=== PATIENT | female | born 1945 | race Caucasian/White ===

== ENCOUNTER 2017-10-31 12:21 | Emergency (ER) | payer OTHER ==
[~2017-10-31] VITALS: Ht 170.2 cm; Wt 82.7 kg
[~2017-10-31 12:21] MED LIST: CLC100 PO; TRAZ50TA35 PO
[2017-10-31 12:29] VITALS: TEMP 36.7; Ht 170.2 cm; Wt 82.7 kg
[2017-10-31] MEDS ORDERED: ACETAMINOPHEN 325 MG TAB PO STA (13:31)
--- NOTE | 2017-10-31 13:38 | EMERGENCY ROOM VISIT NOTE ---
History Report prepared by Benita: Neha Lentz Under the Supervision of: Dr. Sho Alvarado M.D. First contact with patient: 13:02 Chief Complaint: NECK PAIN Stated Complaint: pain face & shoulder History of Present Illness The patient is a 72 year old female who presents to the Emergency Room with complaints of worsening head and facial pain beginning last night. She states that the pain also radiates into her chest and the entire back of her neck. She rates her pain at a 5/10. She reports that she has a hematoma in her eye but is unsure of the cause. The patient denies falling or hitting her head recently. Her family reports that the patient gets pain injections for chronic pain and that she recently had an MRI done but that they don't know the results yet. She reports that she takes Coumadin and has a history of a "heart attack." Source of History: patient Onset: last night Position: head, other (facial) Symptom Intensity: rated at a 5/10 Timing: worsening Associated Symptoms: + neck pain, + chest pain Review of Systems See HPI for pertinent positives & negatives. A total of 10 systems reviewed and were otherwise negative. Past Medical & Surgical Medical Problems: (1) Anxiety State Nos (2) Benign hypertension (3) CAD (coronary artery disease) (4) Diaphragmatic hernia (5) Dyslipidemia (6) Gastroesophageal reflux disease (7) Generalized anxiety disorder (8) History of left hip replacement (9) Hyperlipemia (10) hypertensive urgency (11) Myocardial infarction (12) Paroxysmal atrial fibrillation (13) Pulmonary embolism (14) Rheumatoid arthritis (15) SPINAL STENOSIS NOS (16) Valvular heart disease Surgical Problems: (1) History of adenoidectomy (2) History of appendectomy (3) History of cardiac catheterization (4) History of hysterectomy (5) History of lumpectomy (6) History of tonsillectomy (7) History of tooth extraction Family History FH: cancer FH: gallbladder disease FH: heart disease FH: lung disease Hypertension Kidney disease Kidney stones Social History Smoking Status: Never Smoker Alcohol Use: occasionally Marital Status: Housing Status: lives with family Occupation Status: disabled Current/Historical Medications Scheduled Acetaminophen (Tylenol Arthritis Ext Rel), 650 MG PO HS Aspirin (Aspirin Chewable), 81 MG PO DAILY Atorvastatin (Lipitor), 40 MG PO HS Carvedilol (Coreg), 25 MG PO BID Cyanocobalamin (Vitamin B-12), 1,000 MCG PO BID Duloxetine HCl (Cymbalta), 1 CAP PO DAILY Furosemide (Lasix), 40 MG PO DAILY Losartan Potassium (Cozaar), 25 MG PO BID Pantoprazole (Protonix), 40 MG PO DAILY Potassium Ext Rel (Klor-Con), 20 MEQ PO DAILY Sennosides-Docusate Sodium (Stool Softener Plus Laxat), 1 TAB PO Q2D Trazodone Hcl (Trazodone), 100 MG PO HS Warfarin Sod (Coumadin), 2 MG PO MWF Warfarin Sodium (Coumadin), 4 MG PO [id number] Scheduled PRN Tramadol (Ultram), 50 MG PO TID PRN for Pain Allergies Coded Allergies: Codeine (Unverified Allergy, Severe, SHORTNESS OF BREATH, 08/27/16) Morphine (Verified Adverse Reaction, Intermediate, dizzy/nausea, 08/27/16) Physical Exam Vital Signs Date Time Temp Pulse Resp B/P (MAP) Pulse Ox O2 Delivery O2 Flow Rate FiO2 10/31/17 15:59 62 15 187/84 96 Room Air 10/31/17 15:15 63 23 193/87 95 Room Air 10/31/17 13:28 62 18 184/90 96 Room Air 10/31/17 12:47 63 10/31/17 12:29 36.7 60 12 210/88 97 Room Air Physical Exam Vital signs reviewed. General: Well-appearing female, in no significant distress. HEENT: No scleral icterus, PERRLA, neck supple. Atraumatic. Cardiovascular: Regular rate and rhythm, systolic ejection murmur. Pulmonary: Clear to auscultation bilaterally, normal work of breathing. Abdomen: Soft, nontender, nondistended, positive bowel sounds. Musculoskeletal: Atraumatic, no peripheral edema. Tenderness to palpation over right cervical paraspinous muscles into right upper chest. Nontender along cervical spine. Neurologic: Patient awake alert and oriented x 3, full strength in all 4 extremities. Cranial nerves 2 through 12 grossly intact. Skin: Warm, dry, no rash Medical Decision & Procedures ER Provider Diagnostic Interpretation: Radiology results as stated below per my review and radiologist interpretation: CHEST ONE VIEW PORTABLE HISTORY: headache, upper chest pain COMPARISON: Chest 04/18/2012. FINDINGS: The lungs are clear. Cardiac silhouette is normal in size. No pleural effusions. No pneumothorax. IMPRESSION: No acute process. Electronically signed by: Alonso Randhawa M.D. 10/31/2017 2:09 PM Dictated Date/Time: 10/31/2017 2:07 PM Laboratory Results 10/31/17 12:40 Red Blood Count 4.49, Mean Corpuscular Volume 91.3, Mean Corpuscular Hemoglobin 30.5, Mean Corpuscular Hemoglobin Concent 33.4, Mean Platelet Volume 10.2, Neutrophils (%) (Auto) 55.7, Lymphocytes (%) (Auto) 37.0, Monocytes (%) (Auto) 5.2, Eosinophils (%) (Auto) 1.2, Basophils (%) (Auto) 0.6, Neutrophils # (Auto) 4.99, Lymphocytes # (Auto) 3.32, Monocytes # (Auto) 0.47, Eosinophils # (Auto) 0.11, Basophils # (Auto) 0.05 10/31/17 12:40 Test 10/31/17 12:40 10/31/17 14:10 10/31/17 14:14 White Blood Count 8.97 K/uL (4.8-10.8) Red Blood Count 4.49 M/uL (4.2-5.4) Hemoglobin 13.7 g/dL (12.0-16.0) Hematocrit 41.0 % (37-47) Mean Corpuscular Volume 91.3 fL (80-100) Mean Corpuscular Hemoglobin 30.5 pg (25-34) Mean Corpuscular Hemoglobin Concent 33.4 g/dl (32-36) Platelet Count 312 K/uL (130-400) Mean Platelet Volume 10.2 fL (7.4-10.4) Neutrophils (%) (Auto) 55.7 % Lymphocytes (%) (Auto) 37.0 % Monocytes (%) (Auto) 5.2 % Eosinophils (%) (Auto) 1.2 % Basophils (%) (Auto) 0.6 % Neutrophils # (Auto) 4.99 K/uL (1.4-6.5) Lymphocytes # (Auto) 3.32 K/uL (1.2-3.4) Monocytes # (Auto) 0.47 K/uL (0.11-0.59) Eosinophils # (Auto) 0.11 K/uL (0-0.5) Basophils # (Auto) 0.05 K/uL (0-0.2) RDW Standard Deviation 45.5 fL (36.4-46.3) RDW Coefficient of Variation 13.8 % (11.5-14.5) Immature Granulocyte % (Auto) 0.3 % Immature Granulocyte # (Auto) 0.03 K/uL (0.00-0.02) Prothrombin Time 23.8 SECONDS (9.0-12.0) Prothromb Time International Ratio 2.3 (0.9-1.1) Activated Partial Thromboplast Time 41.5 SECONDS (21.0-31.0) Partial Thromboplastin Ratio 1.6 Anion Gap 6.0 mmol/L (3-11) Est Creatinine Clear Calc Drug Dose 49.9 ml/min Estimated GFR () 57.1 Estimated GFR (Non- 49.2 BUN/Creatinine Ratio 11.7 (10-20) Calcium Level 9.4 mg/dl (8.5-10.1) Magnesium Level 2.2 mg/dl (1.8-2.4) Total Bilirubin 0.6 mg/dl (0.2-1) Direct Bilirubin 0.2 mg/dl (0-0.2) Aspartate Amino Transf (AST/SGOT) 22 U/L (15-37) Alanine Aminotransferase (ALT/SGPT) 20 U/L (12-78) Alkaline Phosphatase 141 U/L (45-117) Total Creatine Kinase 134 U/L (26-192) Creatine Kinase MB 1.2 ng/ml (0.5-3.6) Creatine Kinase MB Ratio 0.9 (0-3.0) Total Protein 8.3 gm/dl (6.4-8.2) Albumin 3.5 gm/dl (3.4-5.0) Bedside Troponin I < 0.030 ng/ml (0-0.045) Influenza Type A Antigen Neg for Influ A (NEG) Influenza Type B Antigen Neg for Influ B (NEG) Laboratory results per my review. Medications Administered Medications (Trade) Dose Ordered Sig/Isaiah Route Start Time Stop Time Status Last Admin Dose Admin Acetaminophen (Tylenol Tab) 650 mg NOW STAT PO 10/31/17 13:31 1/18/18 13:34 DC 10/31/17 14:13 650 MG Hydralazine HCl (Apresoline Tab) 25 mg NOW STAT PO 10/31/17 15:33 10/31/17 15:37 DC 10/31/17 16:00 25 MG ECG Indication: chest pain Rate (beats per minute): 56 Rhythm: sinus bradycardia Findings: no acute ischemic change, no ectopy ED Course 1320: Past medical records reviewed. The patient was evaluated in room B4B. A complete history and physical examination was performed. 1331: Ordered Tylenol Tab 650 mg PO. Medical Decision Differentials include: muscular strain, acute on chronic pain, migraine, headache, intracranial hemorrhage, and neuropathic pain. This patient was evaluated and appeared to be in significant discomfort. Physical examination reveals a tenderness along the right paraspinous muscles of the cervical spine and neck. The patient states she has had some chronic pain there since she fell several years ago. She has been seeing pain management however she does feel this is different. She feels the headache is much more significant. Patient is anticoagulated therefore a CT scan of the head was performed and is negative for acute intracranial abnormality. CT cervical spine CT is significant for degenerative changes however there is no acute fracture or malalignment. The patient was feeling much improved on my reevaluation. Tylenol by mouth seemed to alleviate the pain. She was informed of the findings and will be discharged to the care of her daughter. Patient's blood pressure is noted to be elevated. She did receive hydralazine 25 mg by mouth. She did take her blood pressure medicines this morning. She has a blood pressure cuff and will monitor this week. She will follow-up with her physician next week for reevaluation and further blood pressure management. She will return to the ER for worsening of symptoms or any medical concerns. Medication Reconcilliation Current Medication List: was personally reviewed by me Blood Pressure Screening Patient's blood pressure: Elevated blood pressure Blood pressure disposition: Elevated BP felt to be situational Impression Primary Impression: Spasm of cervical paraspinous muscle Additional Impression: Benign hypertension Scribe Attestation The scribe's documentation has been prepared under my direction and personally reviewed by me in its entirety. I confirm that the note above accurately reflects all work, treatment, procedures, and medical decision making performed by me. Departure Information Referrals Odalys Caceres M.D. (PCP) Patient Instructions My [facility] Problem Qualifiers
[2017-10-31] MEDS ORDERED: CMD4 PO (13:49)
[2017-10-31] MEDS ORDERED: CYAN10005 PO (13:49)
[2017-10-31] MEDS ORDERED: SENNTAB13 PO (13:49)
[2017-10-31] MEDS ORDERED: ATOR-24 PO (13:49)
[2017-10-31] MEDS ORDERED: LOSA1TAB PO (13:49)
[2017-10-31] MEDS ORDERED: CARV25TA2 PO (13:49)
[2017-10-31] MEDS ORDERED: POTA20TA16 PO (13:49)
[2017-10-31] MEDS ORDERED: TRAM-10 PO (13:49)
--- NOTE | 2017-10-31 14:10 | DIAGNOSTIC IMAGING REPORT ---
CHEST ONE VIEW PORTABLE HISTORY: headache, upper chest pain COMPARISON: Chest 04/18/2012. FINDINGS: The lungs are clear. Cardiac silhouette is normal in size. No pleural effusions. No pneumothorax. IMPRESSION: No acute process. Electronically signed by: Alonso Randhawa M.D. 10/31/2017 2:09 PM Dictated Date/Time: 10/31/2017 2:07 PM
[2017-10-31 14:26] LABS: BASO % 0.6 %; BASO ABS # 0.05 K/uL (0-0.2); EOS % 1.2 %; EOS ABS # 0.11 K/uL (0-0.5); HEMOGLOBIN 13.7 g/dL (12.0-16.0); IG# 0.03 K/uL (0.00-0.02); LYMPH ABS # 3.32 K/uL (1.2-3.4); MEAN CELL VOLUME 91.3 fL (80-100); MEAN CORPUSCULAR HEMOGLOBIN 30.5 pg (25-34); MEAN CORPUSCULAR HGB CONC 33.4 g/dl (32-36); MEAN PLATELET VOLUME 10.2 fL (7.4-10.4); MONO % 5.2 %; MONO ABS # 0.47 K/uL (0.11-0.59); NEUT % 55.7 %; NEUT ABS # 4.99 K/uL (1.4-6.5); PLATELET COUNT 312 K/uL (130-400); RED CELL DISTRIBUTION WIDTH CV 13.8 % (11.5-14.5); RED CELL DISTRIBUTION WIDTH SD 45.5 fL (36.4-46.3); WHITE BLOOD COUNT 8.97 K/uL (4.8-10.8)
[2017-10-31 14:35] LABS: INR 2.3 (0.9-1.1); PTT PATIENT 41.5 SECONDS (21.0-31.0)
[2017-10-31 14:45] LABS: ALBUMIN 3.5 gm/dl (3.4-5.0); CALCIUM 9.4 mg/dl (8.5-10.1); CREATININE 1.11 mg/dl (0.60-1.20); POTASSIUM 3.3 mmol/L (3.5-5.1)
[2017-10-31 14:51] LABS: INFLUENZA B ANTIGEN Neg for Influ B (NEG)
[2017-10-31 14:51] LABS: CKMB 1.2 ng/ml (0.5-3.6); TOTAL PROTEIN 8.3 gm/dl (6.4-8.2)
--- NOTE | 2017-10-31 15:10 | DIAGNOSTIC IMAGING REPORT ---
HEAD WITHOUT CONTRAST (CT) CLINICAL HISTORY: 72 years-old Female with headache, right side, coumadin. Acute right-sided headache TECHNIQUE: Multiple axial CT images of the head were obtained without contrast. A dose lowering technique was utilized adhering to the principles of ALARA. CT DOSE: 951.87 mGy.cm COMPARISON: CT head 08/27/2016. FINDINGS: No acute intracranial hemorrhage, midline shift, intracranial mass, hydrocephalus, territorial ischemia or abnormal extra-axial collection. Mild atrophy. Vascular calcifications are seen at the level of the skull base. Ill-defined areas of low attenuation are seen within the subcortical and periventricular white matter suggesting chronic microvascular ischemic changes. The calvarium is intact. The mastoid air cells, and middle ear cavities are clear. Moderate mucosal thickening of the left maxillary sinus. Soft tissues are unremarkable. IMPRESSION: No acute intracranial abnormality. The above report was generated using voice recognition software. It may contain grammatical, syntax or spelling errors. Electronically signed by: Ruben Gilbert M.D. 10/31/2017 3:09 PM Dictated Date/Time: 10/31/2017 3:06 PM
--- NOTE | 2017-10-31 15:43 | DIAGNOSTIC IMAGING REPORT ---
CERVICAL SPINE W/O CT DOSE: HISTORY: Pain. Neuropathy. neck pain, right side TECHNIQUE: Multiaxial CT images of the cervical spine were performed and reformatted in the sagittal and coronal plane without the use of contrast. A dose lowering technique was utilized adhering to the principles of ALARA. COMPARISON: None. FINDINGS: Vertebral body stature is normal. Mild cervical scoliosis. The C1-C2 complex is intact. Degenerative change of the lateral facets primarily at C3-C4. Degenerative disc change most prominent from C3 through C6. Mild osteophytic narrowing of the neuroforamina bilaterally from C3 through C6. Prevertebral soft tissues are unremarkable. IMPRESSION: 1. Degenerative disc change as well as degenerative changes of the posterior/lateral facets from C3 through C6. 2. Osteophytic narrowing of the neuroforamina bilaterally from C3 through C6. 3. No acute bony abnormality. The above report was generated using voice recognition software. It may contain grammatical, syntax or spelling errors. Electronically signed by: Venkatesh Laguerre M.D. 10/31/2017 3:42 PM Dictated Date/Time: 10/31/2017 3:39 PM
[2017-10-31] MEDS ORDERED: WARF4TAB PO (15:44)
[2017-10-31] MEDS ORDERED: TRAZ100T29 PO (15:44)
[2017-10-31] MEDS ORDERED: ACET1TAB84 PO (15:44)
[2017-10-31] MEDS ORDERED: CYM/30 PO (15:44)
[2017-10-31] MEDS ORDERED: PANT40TA PO (15:47)
[2017-10-31 15:59] VITALS: BP 187/84; PULSE 62; O2SAT 96
[2017-10-31] MEDS ORDERED: FRS/40 PO (16:40)
[2017-10-31] MEDS ORDERED: ASPCH81X PO (16:46)
== END 2017-10-31 16:10 | disposition home or self-care (01) ==
LOC: EDBD 12:21 → C.EDB 12:22
DX: M62.838 Other muscle spasm (principal); I10 Essential (primary) hypertension; G89.29 Other chronic pain; Z79.01 Long term (current) use of anticoagulants; I25.2 Old myocardial infarction; I25.10 Atherosclerotic heart disease of native coronary artery without angina pectoris; E78.5 Hyperlipidemia, unspecified; K21.9 Gastro-esophageal reflux disease without esophagitis; F41.1 Generalized anxiety disorder; Z96.642 Presence of left artificial hip joint; I48.0 Paroxysmal atrial fibrillation; Z86.711 Personal history of pulmonary embolism; M06.9 Rheumatoid arthritis, unspecified; M48.00 Spinal stenosis, site unspecified; Z90.710 Acquired absence of both cervix and uterus; Z80.9 Family history of malignant neoplasm, unspecified; Z82.49 Family history of ischemic heart disease and other diseases of the circulatory system; Z84.1 Family history of disorders of kidney and ureter; Z79.82 Long term (current) use of aspirin; Z79.899 Other long term (current) drug therapy

== ENCOUNTER 2020-03-08 12:00 | Inpatient (IN) ==
[2020-03-08] MEDS ORDERED: ASPIRIN CHEW 324 MG PO STA (13:06)
--- NOTE | 2020-03-08 13:06 | Emergency Department Note ---
Impression & Plan Chest pain, HTN (hypertension) ED Provider Note NAME: ISAIAH PRESTON AGE: 75 SEX: F : 1945 ARRIVES VIA: Ambulance INFORMANT: Patient ED PROVIDER(S): Austin Cintron DO CHIEF COMPLAINT: Chest pain HPI: Patient is a 75-year-old female with a past medical history of pericardial effusion, A. fib, CKD and CAD the presents the ER for chest pain. She notes the chest pain lasted for about an hour and started about an hour ago. She describes as a tightness/heaviness and was associated with shortness of breath. No radiation. Stated middle of her chest. Currently pain is a 0 out of 10. Denies any nausea vomiting or diarrhea. Admits to some blurry vision associated with the chest pain but notes that she gets this fairly regularly social with watching TV. Has been present for the past 2 years. ROS: See above HPI for pertinent positives & negatives. A total of 10 systems reviewed and were otherwise negative. PAST MEDICAL HISTORY:See Below PAST SURGICAL HISTORY:See Below FAMILY HISTORY:See Below SOCIAL HISTORY:See Below HOME MEDICATIONS:See Below ALLERGIES:See Below VITALS:See Below PHYSICAL EXAMINATION: GENERAL: Sitting up in bed, alert, well appearing, well nourished, no distress, non-toxic EYE EXAM: normal conjunctiva. OROPHARYNX: no exudate, no erythema, lips, buccal mucosa, and tongue normal and mucous membranes are moist NECK: supple, no nuchal rigidity, no adenopathy, non-tender LUNGS: Clear to auscultation. Normal chest wall mechanics HEART: no murmurs, S1 normal and S2 normal ABDOMEN: abdomen soft, non-tender, normo-active bowel sounds, no masses, no rebound or guarding. BACK: Back is symmetrical on inspection and there is no deformity, no midline tenderness, no CVA tenderness. SKIN: no rashes and no bruising UPPER EXTREMITIES: upper extremities are grossly normal. LOWER EXTREMITIES: No pitting edema. Calves are equal bilateral NEURO EXAM: Normal sensorium, cranial nerves II-XII grossly intact, normal speech, no gross weakness of arms, no gross weakness of legs. MEDICAL DECISION MAKING: Patient is a 35-year-old female who presents the ER for midsternal chest heaviness associated with some shortness of breath. She has no other exacerbating or remitting factors. She does have a history of presents of heart disease/Takotsubos. She was given aspirin upon arrival to the ER. She complete resolution of her symptoms. EKG was unchanged from previous. IV was established blood work was obtained. Labs show no significant leukocytosis or anemia. BMP along with LFTs bilirubin and troponin was negative. Chest x-ray was unremarkable. Patient was updated bedside. Discussed with the hospitalist for observation secondary to chest pain. Triage Nursing notes reviewed. Prior medical records reviewed Vital Signs: reviewed and remarkable for hypertension Differential diagnosis: Differential diagnoses includes but is not limited to acute coronary syndrome, myocardial infarction, pericarditis, pulmonary embolus, aortic dissection, pneumonia, pneumothorax, musculoskeletal, shingles, esophageal. ER treatment provided: See below Diagnostics interpreted by me: ECG: Sinus bradycardia rate of 50 Left axis No PVCs Normal QTC Biphasic T wave in V5 Cardiac Monitoring: An order was placed for continuous cardiac monitoring. The monitor shows a rate of 59 with sinus rhythm. Laboratory studies: As stated above and show below. Imaging studies: Portable AP upright 1 view of the chest shows no focal infiltrate Consultation(s): Discussed with [facility] service patient was admitted under Dr. Daniel's service. ED COURSE: Procedures: none Critical Care: None Past Med/Surg History Social History Preferred Language: Icelandic Communication Ability: Effective Motor Vehicle Field Representative Required: No Beliefs That Will Affect Care: None Current Living Situation: Alone Feels Safe at Home: Yes Smoking Status: Unknown if ever smoked Hx Alcohol Use: No Hx Substance Use: No Allergies Allergies Allergy/AdvReac Type Severity Reaction Status Date / Time codeine Allergy Severe SHORTNESS Verified 03/08/20 13:24 OF BREATH morphine AdvReac Intermediate dizzy/nause Verified 03/08/20 13:24 a caffeine AdvReac Anxiety Verified 03/08/20 13:24 Home Meds Home Medications Medication Instructions Recorded Confirmed aspirin 81 mg PO DAILY 06/17/18 03/08/20 atorvastatin 40 mg PO HS 06/17/18 03/08/20 carvedilol 25 mg PO BID 06/17/18 03/08/20 cyanocobalamin (vitamin B-12) 1,000 mcg PO DAILY 06/17/18 03/08/20 duloxetine 30 mg PO DAILY 06/17/18 03/08/20 furosemide 40 mg PO QAM 06/17/18 03/08/20 losartan 25 mg PO DAILY 06/17/18 03/08/20 pantoprazole 40 mg PO DAILYBB 06/17/18 03/08/20 potassium chloride 20 meq PO DAILY 06/17/18 03/08/20 sennosides-docusate sodium [Senna 1 tab PO HS 06/17/18 03/08/20 Plus] trazodone 100 mg PO HS 06/17/18 03/08/20 warfarin 4 mg PO SUTUWETHSA@1600 06/17/18 03/08/20 cholecalciferol (vitamin D3) 50 mcg PO DAILY 02/28/20 03/08/20 [Vitamin D3] iron,carbonyl-vitamin C [Vitron-C] 1 tab PO DAILY 02/28/20 03/08/20 nystatin 1 applic TOPICAL BID 03/08/20 03/08/20 tramadol 50 mg PO Q8H PRN 03/08/20 03/08/20 warfarin 2 mg PO MOFR@1600 03/08/20 03/08/20 Results & Data (ED) Vital Signs Vital Signs - 24 hr 03/08/20 12:01 03/08/20 12:06 03/08/20 12:10 Temperature 36.5 C Temperature Source Oral Pulse Rate 45 L 49 L Pulse Rate [Right Finger] Pulse Rate from SpO2 Sensor 46 L Respiratory Rate 13 18 Respiratory Effort / Characteristics Non-Labored Spontaneous Non-Labored Spontaneous Respiratory Depth Normal Normal Respiratory Pattern Blood Pressure 157/60 H 157/60 H Blood Pressure [Right Arm] Blood Pressure Mean 90 92 Blood Pressure Mean [Right Arm] Pulse Oximetry 96 97 Oxygen Delivery Method Room Air Sepsis Recent Fever Within 48 Hours No Sepsis New/Unexplained Change in Mental Status No Sepsis Action Taken by Nursing No Action Required 03/08/20 12:13 03/08/20 12:15 03/08/20 12:30 Temperature Temperature Source Pulse Rate 48 L 51 L Pulse Rate [Right Finger] Pulse Rate from SpO2 Sensor 48 L 51 L Respiratory Rate 13 11 L Respiratory Effort / Characteristics Respiratory Depth Respiratory Pattern Blood Pressure Blood Pressure [Right Arm] Blood Pressure Mean Blood Pressure Mean [Right Arm] Pulse Oximetry 97 96 96 Oxygen Delivery Method Room Air Sepsis Recent Fever Within 48 Hours Sepsis New/Unexplained Change in Mental Status Sepsis Action Taken by Nursing 03/08/20 13:00 03/08/20 13:14 03/08/20 13:30 Temperature Temperature Source Pulse Rate 48 L 52 L Pulse Rate [Right Finger] Pulse Rate from SpO2 Sensor 48 L 51 L Respiratory Rate 14 11 L Respiratory Effort / Characteristics Respiratory Depth Respiratory Pattern Blood Pressure Blood Pressure [Right Arm] Blood Pressure Mean Blood Pressure Mean [Right Arm] Pulse Oximetry 97 96 97 Oxygen Delivery Method Room Air Sepsis Recent Fever Within 48 Hours Sepsis New/Unexplained Change in Mental Status Sepsis Action Taken by Nursing 03/08/20 14:00 03/08/20 14:30 03/08/20 14:31 Temperature Temperature Source Pulse Rate 63 54 L Pulse Rate [Right Finger] 64 Pulse Rate from SpO2 Sensor 52 L 53 L Respiratory Rate 26 H 17 20 Respiratory Effort / Characteristics Non-Labored Spontaneous Respiratory Depth Normal Respiratory Pattern Regular Blood Pressure Blood Pressure [Right Arm] 137/68 Blood Pressure Mean Blood Pressure Mean [Right Arm] 91 Pulse Oximetry 97 97 97 Oxygen Delivery Method Room Air Sepsis Recent Fever Within 48 Hours Sepsis New/Unexplained Change in Mental Status Sepsis Action Taken by Nursing 03/08/20 14:32 03/08/20 15:00 03/08/20 15:18 Temperature Temperature Source Pulse Rate 64 53 L 57 L Pulse Rate [Right Finger] Pulse Rate from SpO2 Sensor 54 L Respiratory Rate 18 13 27 H Respiratory Effort / Characteristics Respiratory Depth Respiratory Pattern Blood Pressure 137/68 157/84 H Blood Pressure [Right Arm] Blood Pressure Mean 101 97 Blood Pressure Mean [Right Arm] Pulse Oximetry 97 Oxygen Delivery Method Sepsis Recent Fever Within 48 Hours Sepsis New/Unexplained Change in Mental Status Sepsis Action Taken by Nursing 03/08/20 15:30 Temperature Temperature Source Pulse Rate 56 L Pulse Rate [Right Finger] Pulse Rate from SpO2 Sensor Respiratory Rate 25 H Respiratory Effort / Characteristics Respiratory Depth Respiratory Pattern Blood Pressure Blood Pressure [Right Arm] Blood Pressure Mean Blood Pressure Mean [Right Arm] Pulse Oximetry Oxygen Delivery Method Sepsis Recent Fever Within 48 Hours Sepsis New/Unexplained Change in Mental Status Sepsis Action Taken by Nursing Laboratory Data Result diagrams: 03/08/20 13:20 03/08/20 13:20 Lab Results 03/08/20 03/08/20 03/08/20 Range/Units 13:20 13:20 13:20 WBC 5.92 (4.8-10.8) K/uL RBC 3.58 L (4.2-5.4) M/uL Hgb 10.6 L (12.0-16.0) g/dL Hct 32.6 L (37-47) % MCV 91.1 (80-100) fL MCH 29.6 (25-34) pg MCHC 32.5 (32-36) g/dL RDW Std Deviation 48.7 H (36.4-46.3) fL RDW Coeff of Jame 14.6 H (11.5-14.5) % Plt Count 277 (130-400) K/uL MPV 9.7 (7.4-10.4) fL Immature Gran % (Auto) 0.3 % Neut % (Auto) 61.2 % Lymph % (Auto) 28.4 % [place] % (Auto) 8.4 % Eos % (Auto) 1.2 % Baso % (Auto) 0.5 % Immature Gran # (Auto) 0.02 (0.00-0.02) K/uL Neut # (Auto) 3.62 (1.4-6.5) K/uL Lymph # (Auto) 1.68 (1.2-3.4) K/uL [place] # (Auto) 0.50 (0.11-0.59) K/uL Eos # (Auto) 0.07 (0-0.5) K/uL Baso # (Auto) 0.03 (0-0.2) K/uL PT 44.1 H (9.0-12.0) Seconds INR 4.5 H (0.9-1.1) APTT 54.0 H* (21.0-31.0) Seconds PTT Ratio 1.9 Sodium 140 (136-145) mmol/L Potassium 4.4 (3.5-5.1) mmol/L Chloride 105 (98-107) mmol/L Carbon Dioxide 31 (21-32) mmol/L Anion Gap 4.0 (3-11) BUN 18 (7-18) mg/dl Creatinine 1.05 (0.6-1.2) mg/dl Est Cr Clr Drug Dosing 43.6 ml/min Est GFR ( Amer) 59.7 Est GFR (Non-Af Amer) 51.5 BUN/Creatinine Ratio 16.8 (10-20) Glucose 104 H (70-99) mg/dl Calcium 8.8 (8.5-10.1) mg/dl Total Bilirubin 0.5 (0.2-1) mg/dl AST 13 L (15-37) U/L ALT 11 L (12-78) U/L Alkaline Phosphatase 80 (45-117) U/L Troponin I < 0.015 (0-0.045) ng/ml Total Protein 7.0 (6.4-8.2) gm/dl Albumin 2.7 L (3.4-5.0) gm/dl Globulin 4.3 H (2.5-4.0) gm/dl Albumin/Globulin Ratio 0.6 L (0.9-2) 05/26/20 Range/Units 13:20 WBC (4.8-10.8) K/uL RBC (4.2-5.4) M/uL Hgb (12.0-16.0) g/dL Hct (37-47) % MCV (80-100) fL MCH (25-34) pg MCHC (32-36) g/dL RDW Std Deviation (36.4-46.3) fL RDW Coeff of Jame (11.5-14.5) % Plt Count (130-400) K/uL MPV (7.4-10.4) fL Immature Gran % (Auto) % Neut % (Auto) % Lymph % (Auto) % [place] % (Auto) % Eos % (Auto) % Baso % (Auto) % Immature Gran # (Auto) (0.00-0.02) K/uL Neut # (Auto) (1.4-6.5) K/uL Lymph # (Auto) (1.2-3.4) K/uL [place] # (Auto) (0.11-0.59) K/uL Eos # (Auto) (0-0.5) K/uL Baso # (Auto) (0-0.2) K/uL PT Cancelled (9.0-12.0) Seconds INR Cancelled (0.9-1.1) APTT (21.0-31.0) Seconds PTT Ratio Sodium (136-145) mmol/L Potassium (3.5-5.1) mmol/L Chloride (98-107) mmol/L Carbon Dioxide (21-32) mmol/L Anion Gap (3-11) BUN (7-18) mg/dl Creatinine (0.6-1.2) mg/dl Est Cr Clr Drug Dosing ml/min Est GFR ( Amer) Est GFR (Non-Af Amer) BUN/Creatinine Ratio (10-20) Glucose (70-99) mg/dl Calcium (8.5-10.1) mg/dl Total Bilirubin (0.2-1) mg/dl AST (15-37) U/L ALT (12-78) U/L Alkaline Phosphatase (45-117) U/L Troponin I (0-0.045) ng/ml Total Protein (6.4-8.2) gm/dl Albumin (3.4-5.0) gm/dl Globulin (2.5-4.0) gm/dl Albumin/Globulin Ratio (0.9-2) Administered Medications Discontinued Medications Aspirin (Aspirin) 324 mg PO NOW STA Stop: 03/08/20 13:07 Last Admin: 03/08/20 13:20 Dose: 324 mg Documented by: [id number] Discharge Plan Visit Data Chief Complaint: Cardiac Assessment Stated Complaint: CHEST PAIN ED Provider: Austin Cintron Discharge Problem: Chest pain, HTN (hypertension) Forms Stand Alone Forms: My [facility] Prescriptions Prescriptions: No Action furosemide 40 mg Tablet 40 mg PO QAM RF: 0 atorvastatin 40 mg Tablet 40 mg PO HS RF: 0 carvedilol 25 mg Tablet 25 mg PO BID RF: 0 sennosides-docusate sodium [Senna Plus] 8.6-50 mg Tablet 1 tab PO HS RF: 0 cyanocobalamin (vitamin B-12) 1,000 mcg Tablet 1,000 mcg PO DAILY RF: 0 aspirin 81 mg Tablet,Delayed Release (Dr/Ec) 81 mg PO DAILY RF: 0 warfarin 4 mg Tablet 4 mg PO SUTUWETHSA@1600 RF: 0 trazodone 100 mg Tablet 100 mg PO HS RF: 0 pantoprazole 40 mg Tablet,Delayed Release (Dr/Ec) 40 mg PO DAILYBB RF: 0 losartan 25 mg Tablet 25 mg PO DAILY RF: 0 duloxetine 30 mg Capsule,Delayed Release(Dr/Ec) 30 mg PO DAILY RF: 0 potassium chloride 20 mEq Tablet Extended Release 20 meq PO DAILY RF: 0 tramadol 50 mg tablet 50 mg PO Q8H PRN (Reason: Pain) RF: 0 warfarin 4 mg tablet 2 mg PO MOFR@1600 RF: 0 nystatin 100,000 unit/gram Cream 1 applic TOPICAL BID RF: 0 cholecalciferol (vitamin D3) [Vitamin D3] 50 mcg (2,000 unit) Tablet 50 mcg PO DAILY RF: 0 Vitron-C 65 mg iron- 125 mg tablet,delayed release (DR/EC) 1 tab PO DAILY RF: 0 Discharge Problem: Chest pain Qualifiers: Chest pain type: unspecified Qualified Code(s): R07.9 - Chest pain, unspecified HTN (hypertension) Qualifiers: Hypertension type: unspecified Qualified Code(s): I10 - Essential (primary) hypertension
--- NOTE | 2020-03-08 13:15 | XRay Report ---
XR chest 1V portable HISTORY: 75 years-old Female Chest Pain acute atypical chest pain COMPARISON: Chest radiograph 02/28/2020 TECHNIQUE: Portable AP view of the chest FINDINGS: Cardiomediastinal and hilar silhouettes are within normal limits. Calcified plaque of the thoracic ao rtic arch. No pneumothorax, pleural effusion or overt pulmonary edema. Minimal linear scarring/atelec tasis of the lateral left lung base. Calcified plaque of the carotid bulbs. Degenerative changes of t he shoulders and spine. Mild convex right curvature of the lower thoracic spine. IMPRESSION: No acute process. ACT 112: Negative or not required by law. The above report was generated using voice recognition software. It may contain grammatical, syntax o r spelling errors. Electronically signed by: Ruben Gilbert M.D. 03/08/2020 1:14 PM
[2020-03-08 13:35] LABS: Basophils # (auto) 0.03 K/uL (0-0.2); Basophils % (auto) 0.5 %; Eosinophils # (auto) 0.07 K/uL (0-0.5); Eosinophils % (auto) 1.2 %; Hematocrit (blood only) 32.6 % (37-47); Hemoglobin 10.6 g/dL (12.0-16.0); Immature Granulocytes # (auto) 0.02 K/uL (0.00-0.02); Immature Granulocytes % (auto) 0.3 %; Lymphocytes # (auto) 1.68 K/uL (1.2-3.4); Lymphocytes % (auto) 28.4 %; Mean Corpuscular Hemoglobin 29.6 pg (25-34); Mean Corpuscular Hgb Conc 32.5 g/dL (32-36); Mean Corpuscular Volume 91.1 fL (80-100); Mean Platelet Volume 9.7 fL (7.4-10.4); Monocytes % (auto) 8.4 %; Neutrophils # (auto) 3.62 K/uL (1.4-6.5); Neutrophils % (auto) 61.2 %; Platelet Count 277 K/uL (130-400); RDW Coefficient of Variation 14.6 % (11.5-14.5); RDW Standard Deviation 48.7 fL (36.4-46.3); Red Blood Count 3.58 M/uL (4.2-5.4); White Blood Count 5.92 K/uL (4.8-10.8)
[2020-03-08 13:55] LABS: INR 4.5 (0.9-1.1); Partial Thromboplastin Ratio 1.9; Prothrombin Time 44.1 Seconds (9.0-12.0)
[2020-03-08 13:57] LABS: Alanine Aminotransferase 11 U/L (12-78); Albumin Level 2.7 gm/dl (3.4-5.0); Aspartate Aminotransferase 13 U/L (15-37); BUN Creatinine Ratio 16.8 (10-20); Blood Urea Nitrogen 18 mg/dl (7-18); Calcium 8.8 mg/dl (8.5-10.1); Carbon Dioxide 31 mmol/L (21-32); Chloride 105 mmol/L (98-107); Creatinine Clr Calc Pharmacy 43.6 ml/min; Est GFR (African American) 59.7; Est GFR (Non-African American) 51.5; Glucose 104 mg/dl (70-99); Potassium 4.4 mmol/L (3.5-5.1); Sodium 140 mmol/L (136-145)
[2020-03-08 14:01] LABS: Albumin Globulin Ratio 0.6 (0.9-2); Alkaline Phosphatase 80 U/L (45-117); Bilirubin,Total 0.5 mg/dl (0.2-1); Globulin 4.3 gm/dl (2.5-4.0); Troponin I < 0.015 ng/ml (0-0.045)
--- NOTE | 2020-03-08 15:44 | History & Physical Report ---
Date of Service March 08, 2020 Assessment & Plan (1) Chest tightness: This is a 75yo F with a PMH of paroxysmal atrial fibrillation, history of PE on Coumadin, HTN, CKD 3, history of Takotsubo cardiomyopathy, anxiety, dementia who presents with chest pain. -Longstanding chest pain, thought to be atypical per 2018 cardiology note -Does have history of Takotsubo cardiomyopathy as well as trace pericardial effusion in 2018. Most recent 2D echo from Jun 2018 with LV ejection fraction of 55% with mild aortic valve sclerosis -Chest pain free at time of admission. No acute EKG changes. Initial troponin negative -Observe overnight on telemetry, trend troponin, routine 2D echo (2) HTN (hypertension): Mildly elevated at 153/74 -Continue losartan, lasix (3) Supratherapeutic INR: Initial INR supratherapeutic at 4.5. Hold coumadin. Check daily INRs (4) PAF (paroxysmal atrial fibrillation): Sinus bradycardia on EKG -Holding anticoagulation while INR is supratherapeutic (5) CKD (chronic kidney disease), stage III: Kidney function at baseline. Continue monitoring with daily BMP (6) Anxiety: Continue SNRI (7) Mild dementia: Noted on previous documentation. Difficult to determine cognitive impairment vs extreme hard of hearing DVT Ppx: Holding while supratherapeutic INR on Coumadin Code status: FULL per discussion with patient PCP: [facility] Dispo: Observation med tele. Discharge planning ordered. Patient seen in collaboration with Dr. Daniel. Please see addendum. History of Present Illness Chief Complaint: chest pain Primary Care Provider: Odalys Caceres MD This is a 75yo F with a PMH of paroxysmal atrial fibrillation, history of PE on Coumadin, HTN, CKD 3, history of Takotsubo cardiomyopathy, anxiety, dementia who presents with chest pain. Endorses some chest tightness off and on for the past year but noted that it was worse earlier today. Endorses midsternal chest pain that feels like heaviness and is associated with shortness of breath. Occurs at rest and is not worsened with exertion. Denies any jaw pain, radiation to arms, nausea or vomiting. Pain has resolved since arrival. Does have remote history of Takotsubo cardiomyopathy as well as trace pericardial effusion in 2018. Most recent 2D echo from Jun 2018 with LV ejection fraction of 55% with mild aortic valve sclerosis. Follows with PA-C Louise in cardiology clinic and was last seen in June. During last in-patient cardiology consult, was evaluated for similar chest pain that was felt to be atypical of cardiac etiology. Conservative medical management was recommended. Patient is currently chest pain-free. No acute EKG changes. Initial troponin negative. Denies any fever, chills, lightheadedness, headache, cough, shortness of breath, nausea, vomiting, abdominal pain, dysuria, diarrhea or constipation. Allergies Allergy/AdvReac Type Severity Reaction Status Date / Time codeine Allergy Severe SHORTNESS Verified 03/08/20 13:24 OF BREATH morphine AdvReac Intermediate dizzy/nause Verified 03/08/20 13:24 a caffeine AdvReac Anxiety Verified 03/08/20 13:24 Home Medications Home Medications Medication Instructions Recorded Confirmed Type aspirin 81 mg PO DAILY 06/17/18 03/08/20 History atorvastatin 40 mg PO HS 06/17/18 03/08/20 History carvedilol 25 mg PO BID 06/17/18 03/08/20 History cyanocobalamin (vitamin B-12) 1,000 mcg PO DAILY 06/17/18 03/08/20 History duloxetine 30 mg PO DAILY 06/17/18 03/08/20 History furosemide 40 mg PO QAM 06/17/18 03/08/20 History losartan 25 mg PO DAILY 06/17/18 03/08/20 History pantoprazole 40 mg PO DAILYBB 06/17/18 03/08/20 History potassium chloride 20 meq PO DAILY 06/17/18 03/08/20 History sennosides-docusate sodium [Senna 1 tab PO HS 06/17/18 03/08/20 History Plus] trazodone 100 mg PO HS 06/17/18 03/08/20 History warfarin 4 mg PO SUTUWETHSA@1600 06/17/18 03/08/20 History cholecalciferol (vitamin D3) 50 mcg PO DAILY 02/28/20 03/08/20 History [Vitamin D3] iron,carbonyl-vitamin C [Vitron-C] 1 tab PO DAILY 02/28/20 03/08/20 History nystatin 1 applic TOPICAL BID 03/08/20 03/08/20 History tramadol 50 mg PO Q8H PRN 03/08/20 03/08/20 History warfarin 2 mg PO MOFR@1600 03/08/20 03/08/20 History Past Med/Surg History Surgical History History of adenoidectomy History of appendectomy History of cardiac catheterization History of hysterectomy History of lumpectomy History of tonsillectomy History of tooth extraction Family History Brother Myocardial infarction Mother Uterine cancer Social History Preferred Language: Nepali Communication Ability: Effective 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 Physical Exam Physical Exam: General Appearance: WD/WN, vitals as above, NAD, standing in room, pleasant, conversing easily Head: normocephalic, atraumatic Eyes: normal inspection, PERRL, conjunctivae normal, anicteric sclerae ENT: extremely hard of hearing, external ear and nose normal, oropharynx normal Neck: trachea midline, no thyromegaly, normal visual inspection Respiratory: normal respiratory effort, lungs clear to auscultation, no wheeze, rales, rhonchi. Normal insp/exp effort, no accessory muscle use Cardiovascular: regular rate, rhythm, no murmur, normal peripheral pulses. Vessels: no JVD or carotid bruit Chest: normal inspection of chest Abdomen/GI: normal bowel sounds, soft, nontender, no hepatosplenomegaly Extremities/Musculoskeletal: no cyanosis or clubbing, extremities motor strength 5/5 Neurologic: PERRL, EOMI, accommodation nl, no face palsy, CN's II-XI intact bilaterally and moves all extremities Psychiatric: A+Ox3, euthymic affect Skin: no rashes, normal color, warm/dry Results & Data Results & Data ([facility]) Vital Signs (Past 12 Hours) Vital Signs Temp Pulse Pulse Resp BP BP Pulse Ox 03/08/20 14:31 64 20 137/68 97 03/08/20 13:14 96 03/08/20 12:13 97 03/08/20 12:10 36.5 C 49 L 18 157/60 H 97 Laboratory Results Short CBC 03/08/20 Range/Units 13:20 WBC 5.92 (4.8-10.8) K/uL Hgb 10.6 L (12.0-16.0) g/dL Hct 32.6 L (37-47) % Plt Count 277 (130-400) K/uL BMP 03/08/20 13:20 Sodium 140 Potassium 4.4 Chloride 105 Carbon Dioxide 31 BUN 18 Creatinine 1.05 Glucose 104 H Calcium 8.8 Cardiac Enzymes 03/08/20 Range/Units 13:20 Troponin I < 0.015 (0-0.045) ng/ml Liver Function 03/08/20 Range/Units 13:20 Total Bilirubin 0.5 (0.2-1) mg/dl AST 13 L (15-37) U/L ALT 11 L (12-78) U/L Alkaline Phosphatase 80 (45-117) U/L Albumin 2.7 L (3.4-5.0) gm/dl Diagnostic Findings CXR: IMPRESSION: No acute process. ECG Indication: bradycardia Change: no significant change Code Status & VTE Plan VTE Prophylaxis Plan VTE Prophylaxis will be ordered: Yes Supervising Physician Co-Signing Physician Notes Pt was seen and examined. Agreed with Kalie UGARTE exam, assessment and plan. 75yo F with a PMH of paroxysmal atrial fibrillation, history of PE on Coumadin, HTN, CKD 3, history of Takotsubo cardiomyopathy, anxiety, dementia who presents to the ER with chest pain. Pt said that she developed chest pain with heavy like associated with SOB. he said that chest pain worsening with exertion. He said that chest pain resolved since arrived in the ER. Currently denies any chest pain, palpitation, dizziness, Nausea and SOB. CXR on admission showed no acute process, initial troponin negative and EKG showed no ischemic changes. Will trend troponin, will get a resting echo in am. Consider cardiology consult if chest pain reoccurs or troponin spikes. Will repeat EKG in am. Continue monitor closely in telemetry. MD Fredy (1) HTN (hypertension) Hypertension type: unspecified Qualified Code(s): I10 - Essential (primary) hypertension
--- NOTE | 2020-03-08 16:11 | Electrocardiogram Report ---
Test Reason : Blood Pressure : / mmHG Vent. Rate : 050 BPM Atrial Rate : 050 BPM P-R Int : 188 ms QRS Dur : 098 ms QT Int : 452 ms P-R-T Axes : 031 -22 024 degrees QTc Int : 412 ms Sinus bradycardia Minimal voltage criteria for LVH, may be normal variant Borderline ECG When compared with ECG of 28-FEB-2020 19:59, No significant change was found Confirmed by Derek Green ([id number]) on 03/08/2020 4:11:05 PM Referred By: Confirmed By:Derek Green
[2020-03-08] MEDS ORDERED: POLYETHYLENE (MIRALAX) 17 GM PACK PO PRN (17:30)
[2020-03-08] MEDS ORDERED: ACETAMINOPHEN 325 MG TAB PO PRN (17:30)
[2020-03-08] MEDS ORDERED: TRAMADOL HCL 50 MG TABLET PO PRN (18:08)
[2020-03-08] MEDS: carvediloL 25 MG TAB PO SCH (20:10)
[2020-03-08] MEDS: ATORVASTATIN 40 MG TAB PO SCH (20:11)
[2020-03-08] MEDS: DOCUSATE SODIUM/SENNA 50/8.6MG TAB PO SCH (20:11)
[2020-03-08] MEDS: NYSTATIN CR 15 GM TUBE EXT SCH (20:12)
[2020-03-08] MEDS: TRAZODONE HCL 100 MG TAB PO SCH (20:12)
[2020-03-09] MEDS: PANTOprazole 40 MG TAB PO SCH (05:59)
[2020-03-09] MEDS: POTASSIUM CHLORIDE 20 MEQ TABCR PO SCH (07:44)
[2020-03-09] MEDS: LOSARTAN POTASSIUM 25 MG TAB PO SCH (07:44)
[2020-03-09] MEDS: CHOLECALCIFEROL 1,000 UNITS 25 MCG TAB PO SCH (07:44)
[2020-03-09] MEDS: CYANOCOBALAMIN 500 MCG TABLET (VITAMIN B-12) PO SCH (07:45)
[2020-03-09] MEDS: FUROSEMIDE 40 MG TAB PO SCH (07:45)
[2020-03-09] MEDS: ASPIRIN 81 MG ECTAB PO SCH (07:45)
[2020-03-09] MEDS: carvediloL 25 MG TAB PO SCH ×2 (07:45→20:10)
[2020-03-09] MEDS: NYSTATIN CR 15 GM TUBE EXT SCH ×2 (07:46→22:29)
[2020-03-09] MEDS: DULOXETINE HCL 30 MG CAP PO SCH (07:46)
[2020-03-09 08:05] LABS: Hematocrit (blood only) 34.7 % (37-47); Hemoglobin 11.2 g/dL (12.0-16.0); Mean Corpuscular Hemoglobin 29.5 pg (25-34); Mean Corpuscular Hgb Conc 32.3 g/dL (32-36); Mean Corpuscular Volume 91.3 fL (80-100); Mean Platelet Volume 9.6 fL (7.4-10.4); Platelet Count 316 K/uL (130-400); RDW Coefficient of Variation 14.7 % (11.5-14.5); RDW Standard Deviation 49.5 fL (36.4-46.3); White Blood Count 8.27 K/uL (4.8-10.8)
[2020-03-09 08:26] LABS: INR 5.2 (0.9-1.1); Prothrombin Time 49.9 Seconds (9.0-12.0)
[2020-03-09 08:39] LABS: BUN Creatinine Ratio 22.7 (10-20); Calcium 9.6 mg/dl (8.5-10.1); Creatinine Clr Calc Pharmacy 40.1 ml/min; Est GFR (African American) 61.2; Est GFR (Non-African American) 52.8; Potassium 3.7 mmol/L (3.5-5.1)
[2020-03-09] MEDS ORDERED: NON-FORMULARY MEDICATION (Iron,Carbonyl-Vitamin C [Vitron-C] 1 TAB) PO SCH (09:00)
--- NOTE | 2020-03-09 10:41 | Hospitalist Progress Note ---
Date of Service March 09, 2020 Assessment & Plan (1) Chest tightness: This is a 75yo F with a PMH of paroxysmal atrial fibrillation, history of PE on Coumadin, HTN, CKD 3, history of Takotsubo cardiomyopathy, anxiety, dementia who presents with chest pain. -Longstanding chest pain, thought to be atypical per 2018 cardiology note -Does have history of Takotsubo cardiomyopathy as well as trace pericardial effusion in 2018. Most recent 2D echo from Jun 2018 with LV ejection fraction of 55% with mild aortic valve sclerosis -Chest pain free at time of admission. No acute EKG changes. All 3 troponins are negative -INR 5.2, but Hb stable, OK to DC later today if OK c Cardiology, Hold Warfarin until INR 3 then resume (2) HTN (hypertension): Mildly elevated at 153/74 -Continue losartan, lasix (3) Supratherapeutic INR: Initial INR supratherapeutic at 4.5. Hold coumadin. INR 5.2 today so should begin to drift down tomorrow (4) PAF (paroxysmal atrial fibrillation): Sinus bradycardia on EKG -Holding anticoagulation while INR is supratherapeutic (5) CKD (chronic kidney disease), stage III: Kidney function at baseline. (6) Anxiety: Continue SNRI (7) Mild dementia: Noted on previous documentation. Difficult to determine cognitive impairment vs extreme hard of hearing DVT Ppx: Holding while supratherapeutic INR on Coumadin Code status: FULL PCP: [facility] Dispo: Observation med tele. Discharge planning ordered. Labs Checked Lives Home Alone-Needs Placement ROS-Unreliable History Physical Exam Gen-NAD, Afebrile Head-NCAT, EOMI, PERRLA, Anicteric Sclera, No Posterior Pharyngeal Erythema Neck-Supple, No JVD, No Thyromegaly, No Masses, No LAD, No Bruits Lungs-Clear to Auscultation Bilaterally, No Rales, No Rhonchi, No Wheezing, No Crepitus Chest-No S4, +S1, +S2, No S3, No Murmurs, No Rubs, No Gallops, No Ectopy Abdomen-Soft, Bowel Sounds Present, Non Tender, Non Distended, No Hepatomegaly, No Splenomegaly, No Palpable Masses, No Rebound, No Rigidity, No Guarding Musculoskeletal-Full Range of Motion Bilaterally, No CVAT Extremities-No Cyanosis, No Clubbing, No Edema Nuero-Cranial Nerves II-XII grossly intact, Motor WNL, DTRs WNL, Strength WNL, Non Focal Psych-Demented Admission and Anticipated Discharge Date Admission Date: March 08, 2020 Results & Data Results & Data ([facility]) Vital Signs (Past 12 Hours) Vital Signs Temp Pulse Pulse Resp BP Pulse Ox 03/09/20 08:21 55 L 03/09/20 07:09 36.9 C 60 18 168/70 H 98 03/09/20 03:04 36.7 C 52 L 18 146/57 H 94 03/08/20 23:49 36.7 C 56 L 20 150/70 H 95 (1) HTN (hypertension) Hypertension type: unspecified Qualified Code(s): I10 - Essential (primary) hypertension
--- NOTE | 2020-03-09 14:28 | Electrocardiogram Report ---
Test Reason : Blood Pressure : / mmHG Vent. Rate : 054 BPM Atrial Rate : 054 BPM P-R Int : 176 ms QRS Dur : 100 ms QT Int : 418 ms P-R-T Axes : 074 -23 058 degrees QTc Int : 396 ms Sinus bradycardia with sinus arrhythmia Minimal voltage criteria for LVH, may be normal variant ( Ben product ) Borderline ECG When compared with ECG of 08-MAR-2020 12:02, No significant change was found Confirmed by Derek Green ([id number]) on 03/09/2020 2:28:35 PM Referred By: REFERRED SELF Confirmed By:Derek Green
[2020-03-09] MEDS: ATORVASTATIN 40 MG TAB PO SCH (20:11)
[2020-03-09] MEDS: TRAZODONE HCL 100 MG TAB PO SCH (20:11)
[2020-03-09] MEDS: DOCUSATE SODIUM/SENNA 50/8.6MG TAB PO SCH (20:18)
[2020-03-10] MEDS: PANTOprazole 40 MG TAB PO SCH (05:20)
[2020-03-10 07:26] LABS: Hemoglobin 10.8 g/dL (12.0-16.0); Mean Corpuscular Hemoglobin 29.6 pg (25-34); Mean Corpuscular Hgb Conc 32.7 g/dL (32-36); Mean Corpuscular Volume 90.4 fL (80-100); Mean Platelet Volume 9.8 fL (7.4-10.4); Platelet Count 314 K/uL (130-400); RDW Coefficient of Variation 14.8 % (11.5-14.5); Red Blood Count 3.65 M/uL (4.2-5.4); White Blood Count 7.98 K/uL (4.8-10.8)
[2020-03-10 07:35] LABS: INR 2.6 (0.9-1.1); Prothrombin Time 26.2 Seconds (9.0-12.0)
[2020-03-10] MEDS: carvediloL 25 MG TAB PO SCH (08:05)
[2020-03-10] MEDS: POTASSIUM CHLORIDE 20 MEQ TABCR PO SCH (08:05)
[2020-03-10] MEDS: DULOXETINE HCL 30 MG CAP PO SCH (08:05)
[2020-03-10] MEDS: LOSARTAN POTASSIUM 25 MG TAB PO SCH (08:05)
[2020-03-10] MEDS: CHOLECALCIFEROL 1,000 UNITS 25 MCG TAB PO SCH (08:06)
[2020-03-10] MEDS: ASPIRIN 81 MG ECTAB PO SCH (08:06)
[2020-03-10] MEDS: FUROSEMIDE 40 MG TAB PO SCH (08:06)
[2020-03-10] MEDS: NYSTATIN CR 15 GM TUBE EXT SCH (08:06)
[2020-03-10] MEDS: CYANOCOBALAMIN 500 MCG TABLET (VITAMIN B-12) PO SCH (08:06)
[2020-03-10 08:08] LABS: BUN Creatinine Ratio 26.8 (10-20); Calcium 9.1 mg/dl (8.5-10.1); Creatinine Clr Calc Pharmacy 39.7 ml/min; Est GFR (African American) 60.4; Est GFR (Non-African American) 52.1; Potassium 3.6 mmol/L (3.5-5.1)
--- NOTE | 2020-03-10 09:27 | Discharge Summary ---
Date of Service March 10, 2020 Admission HPI Per Admitting Provider This is a 75yo F with a PMH of paroxysmal atrial fibrillation, history of PE on Coumadin, HTN, CKD 3, history of Takotsubo cardiomyopathy, anxiety, dementia who presents with chest pain. Endorses some chest tightness off and on for the past year but noted that it was worse earlier today. Endorses midsternal chest pain that feels like heaviness and is associated with shortness of breath. Occurs at rest and is not worsened with exertion. Denies any jaw pain, radiation to arms, nausea or vomiting. Pain has resolved since arrival. Does have remote history of Takotsubo cardiomyopathy as well as trace pericardial effusion in 2018. Most recent 2D echo from Jun 2018 with LV ejection fraction of 55% with mild aortic valve sclerosis. Follows with SHANEL Gil in cardiology clinic and was last seen in June. During last in-patient cardiology consult, was evaluated for similar chest pain that was felt to be atypical of cardiac etiology. Conservative medical management was recommended. Patient is currently chest pain-free. No acute EKG changes. Initial troponin negative. Denies any fever, chills, lightheadedness, headache, cough, shortness of breath, nausea, vomiting, abdominal pain, dysuria, diarrhea or constipation. Admission Exam Per Admitting Provider General Appearance: WD/WN, vitals as above, NAD, standing in room, pleasant, conversing easily Head: normocephalic, atraumatic Eyes: normal inspection, PERRL, conjunctivae normal, anicteric sclerae ENT: extremely hard of hearing, external ear and nose normal, oropharynx normal Neck: trachea midline, no thyromegaly, normal visual inspection Respiratory: normal respiratory effort, lungs clear to auscultation, no wheeze, rales, rhonchi. Normal insp/exp effort, no accessory muscle use Cardiovascular: regular rate, rhythm, no murmur, normal peripheral pulses. Vessels: no JVD or carotid bruit Chest: normal inspection of chest Abdomen/GI: normal bowel sounds, soft, nontender, no hepatosplenomegaly Extremities/Musculoskeletal: no cyanosis or clubbing, extremities motor strength 5/5 Neurologic: PERRL, EOMI, accommodation nl, no face palsy, CN's II-XI intact bilaterally and moves all extremities Psychiatric: A+Ox3, euthymic affect Skin: no rashes, normal color, warm/dry Principal Diagnosis (1) Chest tightness: (2) HTN (hypertension): (3) Supratherapeutic INR: (4) PAF (paroxysmal atrial fibrillation): (5) CKD (chronic kidney disease), stage III: (6) Anxiety: (7) Mild dementia: Discharge Exam ROS-No Headache, No Visual Changes, No Nausea, No Vomiting, No Fever, No Chills, No Neck Pain or Stiffness, No Chest Pain, No Palpitations, No SOB, No SO, No Cough, No Sputum, No Wheezing, No Abdominal Pain, No Diarrhea, No Hematemesis, No Hemoptysis, No Unexpected Weight Loss, No Flank pain, No Melena, No Hematochezia, No Frequency, No Urgency, No Burning, No Hematuria, No Rashes, No Diaphoresis. Appetite is Normal Physical Exam Gen-AAO x 3, NAD, Afebrile Head-NCAT, EOMI, PERRLA, Anicteric Sclera, No Posterior Pharyngeal Erythema Neck-Supple, No JVD, No Thyromegaly, No Masses, No LAD, No Bruits Lungs-Clear to Auscultation Bilaterally, No Rales, No Rhonchi, No Wheezing, No Crepitus Chest-No S4, +S1, +S2, No S3, No Murmurs, No Rubs, No Gallops, No Ectopy Abdomen-Soft, Bowel Sounds Present, Non Tender, Non Distended, No Hepatomegaly, No Splenomegaly, No Palpable Masses, No Rebound, No Rigidity, No Guarding Musculoskeletal-Full Range of Motion Bilaterally, No CVAT Extremities-No Cyanosis, No Clubbing, No Edema Nuero-Cranial Nerves II-XII grossly intact, Motor WNL, DTRs WNL, Strength WNL, Non Focal Psych-Normal Mood Discharge Data Allergies Allergy/AdvReac Type Severity Reaction Status Date / Time codeine Allergy Severe SHORTNESS Verified 03/08/20 13:24 OF BREATH morphine AdvReac Intermediate dizzy/nause Verified 03/08/20 13:24 a caffeine AdvReac Anxiety Verified 03/08/20 13:24 Consultations 03/08/20 14:41 ED Decision to Admit Stat 03/08/20 18:08 Consult Case Management - Discharge Planning Routine 03/09/20 10:48 Consult Case Management - Discharge Planning Routine 03/10/20 03/10/20 03/10/20 Range/Units 06:53 06:53 06:53 WBC 7.98 (4.8-10.8) K/uL RBC 3.65 L (4.2-5.4) M/uL Hgb 10.8 L (12.0-16.0) g/dL Hct 33.0 L (37-47) % MCV 90.4 (80-100) fL MCH 29.6 (25-34) pg MCHC 32.7 (32-36) g/dL RDW Std Deviation 49.0 H (36.4-46.3) fL RDW Coeff of Jame 14.8 H (11.5-14.5) % Plt Count 314 (130-400) K/uL MPV 9.8 (7.4-10.4) fL PT 26.2 H (9.0-12.0) Seconds INR 2.6 H (0.9-1.1) Sodium 138 (136-145) mmol/L Potassium 3.6 (3.5-5.1) mmol/L Chloride 103 (98-107) mmol/L Carbon Dioxide 28 (21-32) mmol/L Anion Gap 7.0 (3-11) BUN 28 H (7-18) mg/dl Creatinine 1.04 (0.6-1.2) mg/dl Est Cr Clr Drug Dosing 39.7 ml/min Est GFR ( Amer) 60.4 Est GFR (Non-Af Amer) 52.1 BUN/Creatinine Ratio 26.8 H (10-20) Glucose 96 (70-99) mg/dl Calcium 9.1 (8.5-10.1) mg/dl SARS-CoV-2 RNA (RT-PCR) 03/09/20 Range/Units 11:10 WBC (4.8-10.8) K/uL RBC (4.2-5.4) M/uL Hgb (12.0-16.0) g/dL Hct (37-47) % MCV (80-100) fL MCH (25-34) pg MCHC (32-36) g/dL RDW Std Deviation (36.4-46.3) fL RDW Coeff of Jame (11.5-14.5) % Plt Count (130-400) K/uL MPV (7.4-10.4) fL PT (9.0-12.0) Seconds INR (0.9-1.1) Sodium (136-145) mmol/L Potassium (3.5-5.1) mmol/L Chloride (98-107) mmol/L Carbon Dioxide (21-32) mmol/L Anion Gap (3-11) BUN (7-18) mg/dl Creatinine (0.6-1.2) mg/dl Est Cr Clr Drug Dosing ml/min Est GFR ( Amer) Est GFR (Non-Af Amer) BUN/Creatinine Ratio (10-20) Glucose (70-99) mg/dl Calcium (8.5-10.1) mg/dl SARS-CoV-2 RNA (RT-PCR) Pending Hospital Course (1) Chest tightness: This is a 75yo F with a PMH of paroxysmal atrial fibrillation, history of PE on Coumadin, HTN, CKD 3, history of Takotsubo cardiomyopathy, anxiety, dementia who presents with chest pain. -Longstanding chest pain, thought to be atypical per 2018 cardiology note -Does have history of Takotsubo cardiomyopathy as well as trace pericardial effusion in 2018. Most recent 2D echo from Jun 2018 with LV ejection fraction of 55% with mild aortic valve sclerosis -Chest pain free at time of admission. No acute EKG changes. All 3 troponins are negative -INR 5.2, but Hb stable, OK to DC later today if OK c Cardiology, Hold Warfarin until INR 3 then resume (2) HTN (hypertension): Mildly elevated at 153/74 -Continue losartan, lasix (3) Supratherapeutic INR: Initial INR supratherapeutic at 4.5. Hold coumadin. INR 2.6 today-Resume Warfarin today (4) PAF (paroxysmal atrial fibrillation): Sinus bradycardia on EKG (5) CKD (chronic kidney disease), stage III: Kidney function at baseline. (6) Anxiety: Continue SNRI (7) Mild dementia: Noted on previous documentation. Difficult to determine cognitive impairment vs extreme hard of hearing DVT Ppx: Holding while supratherapeutic INR on Coumadin Code status: FULL PCP: [facility] Dispo: Observation med tele. Discharge planning ordered. Labs Checked Lives Home Alone-Needs Placement, Hope fully Encompass today Total Time Total Time Spent Total Time Spent (In Minutes): 45 mins Total Time Includes: Examination of the Patient, Discharge Planning, Medication Reconciliation and Communication With Other Providers Discharge Plan Discharge Items Patient Disposition: Transfer Intermediate Fac Reason For Visit: CHEST PAIN Discharge Diagnosis: (1) Chest tightness: (2) HTN (hypertension): (3) Supratherapeutic INR: (4) PAF (paroxysmal atrial fibrillation): (5) CKD (chronic kidney disease), stage III: (6) Anxiety: (7) Mild dementia: Condition on Discharge: Good Health Concerns: Maintaining INR Activity: Resume your previous activity Lifting: Gradually increase as tolerated Bathing: No limitations Exercise/Sports: None Driving/Machine Use: none Weightbearing: Full weightbearing Non-emergency contact: Primary Care Provider Call non-emergency contact if: you have any medication questions Follow-up/Referrals: Odalys Caceres MD [Primary Care Provider] - 03/15/20 12:00 pm (03/15/2020 12:00 PM Provider Junie Jeffers MD Department Internal Medicine [facility] ) Diet: Heart Healthy Addtl Attending Provider Instructions: None Pending Studies at Discharge: No Stand-Alone Forms: [place] Skilled Items Patient informed of condition?: Yes DNR: No Discharge Level of Care: Skilled Communicable Disease: No Discharge Prognosis: Stable Lines: None Urinary Catheter: No Medications and DC Order Prescriptions: New acetaminophen [Mapap (acetaminophen)] 325 mg Tablet 650 mg PO Q4H PRN (Reason: fever or pain) Qty: 100 RF: 0 warfarin 2 mg tablet 2 mg PO DAILY Qty: 30 RF: 0 Continued furosemide 40 mg Tablet 40 mg PO QAM RF: 0 atorvastatin 40 mg Tablet 40 mg PO HS RF: 0 carvedilol 25 mg Tablet 25 mg PO BID RF: 0 sennosides-docusate sodium [Senna Plus] 8.6-50 mg Tablet 1 tab PO HS RF: 0 cyanocobalamin (vitamin B-12) 1,000 mcg Tablet 1,000 mcg PO DAILY RF: 0 aspirin 81 mg Tablet,Delayed Release (Dr/Ec) 81 mg PO DAILY RF: 0 trazodone 100 mg Tablet 100 mg PO HS RF: 0 pantoprazole 40 mg Tablet,Delayed Release (Dr/Ec) 40 mg PO DAILYBB RF: 0 losartan 25 mg Tablet 25 mg PO DAILY RF: 0 duloxetine 30 mg Capsule,Delayed Release(Dr/Ec) 30 mg PO DAILY RF: 0 potassium chloride 20 mEq Tablet Extended Release 20 meq PO DAILY RF: 0 nystatin 100,000 unit/gram Cream 1 applic TOPICAL BID RF: 0 cholecalciferol (vitamin D3) [Vitamin D3] 50 mcg (2,000 unit) Tablet 50 mcg PO DAILY RF: 0 Vitron-C 65 mg iron- 125 mg tablet,delayed release (DR/EC) 1 tab PO DAILY RF: 0 Discontinued warfarin 4 mg Tablet 4 mg PO SUTUWETHSA@1600 RF: 0 tramadol 50 mg tablet 50 mg PO Q8H PRN (Reason: Pain) RF: 0 warfarin 4 mg tablet 2 mg PO MOFR@1600 RF: 0 Discharge Orders: Discharge Order (Routine); Ordered 03/10/20 Ordered By: Ray Cisneros Admission Data Admit Date/Time: 03/10/20 09:16 Attending Provider: Ray Cisneros Admit Provider: Marquis Daniel Primary Care Provider: Odalys Caceres Other Providers: [facility] ; Marquis Daniel
== END 2020-03-10 13:31 | DRG 313 ==
LOC: 2N 12:00 → ED 12:00 → SUATTDRO 15:41 → 2N 17:20

== ENCOUNTER 2021-01-04 16:14 | Observation (INO) ==
--- NOTE | 2021-01-04 17:22 | XRay Report ---
XR chest 1V portable CLINICAL HISTORY: Atypical chest pain COMPARISON STUDY: 10/31/2020 FINDINGS: The heart is borderline enlarged. There is no failure. There is no focal pulmonary consolid ation. There are no pleural effusions. A 9 mm opacity within the left apex is felt to represent a sum mation with the left first costochondral junction.[ IMPRESSION: No active disease in the chest. ACT 112: Negative or not required by law. Electronically signed by: Rajinder Pandya M.D. 01/04/2021 5:20 PM
[2021-01-04 17:54] LABS: Basophils # (auto) 0.02 K/uL (0-0.2); Basophils % (auto) 0.3 %; Eosinophils # (auto) 0.14 K/uL (0-0.5); Hematocrit (blood only) 39.4 % (37-47); Hemoglobin 12.7 g/dL (12.0-16.0); Immature Granulocytes # (auto) 0.02 K/uL (0.00-0.02); Immature Granulocytes % (auto) 0.3 %; Lymphocytes # (auto) 1.68 K/uL (1.2-3.4); Lymphocytes % (auto) 23.8 %; Mean Corpuscular Hemoglobin 31.9 pg (25-34); Mean Corpuscular Hgb Conc 32.2 g/dL (32-36); Mean Platelet Volume 10.2 fL (7.4-10.4); Monocytes # (auto) 0.24 K/uL (0.11-0.59); Monocytes % (auto) 3.4 %; Neutrophils # (auto) 4.95 K/uL (1.4-6.5); Neutrophils % (auto) 70.2 %; Platelet Count 270 K/uL (130-400); RDW Coefficient of Variation 14.8 % (11.5-14.5); RDW Standard Deviation 53.4 fL (36.4-46.3); Red Blood Count 3.98 M/uL (4.2-5.4); White Blood Count 7.05 K/uL (4.8-10.8)
[2021-01-04 18:05] LABS: INR 2.2 (0.9-1.1); Prothrombin Time 21.2 Seconds (9.0-12.0)
[2021-01-04 18:20] LABS: Alanine Aminotransferase 18 U/L (12-78); Albumin Level 3.8 gm/dl (3.4-5.0); Aspartate Aminotransferase 17 U/L (15-37); BUN Creatinine Ratio 19.4 (10-20); Bilirubin Direct < 0.1 mg/dl (0-0.2); Blood Urea Nitrogen 25 mg/dl (7-18); Calcium 9.3 mg/dl (8.5-10.1); Carbon Dioxide 30 mmol/L (21-32); Chloride 107 mmol/L (98-107); Creatinine Clr Calc Pharmacy 39.6 ml/min; Est GFR (Non-African American) 40.6; Glucose 126 mg/dl (70-99); Lipase 257 U/L (73-393); Magnesium 2.3 mg/dl (1.8-2.4); Potassium 3.8 mmol/L (3.5-5.1); Sodium 141 mmol/L (136-145)
[2021-01-04 18:29] LABS: Albumin Globulin Ratio 0.9 (0.9-2); Alkaline Phosphatase 124 U/L (45-117); Bilirubin,Total 0.4 mg/dl (0.2-1); Globulin 4.1 gm/dl (2.5-4.0); NT Pro B Type Natriuretic Pept 1458 pg/ml (0-1800); Phosphorus 3.3 mg/dl (2.5-4.9); Total Protein 7.9 gm/dl (6.4-8.2); Troponin I < 0.015 ng/ml (0-0.045)
[2021-01-04 18:38] LABS: Influenza A virus by PCR Negative (Neg); Influenza B virus by PCR Negative (Neg); RSV by PCR Negative (Neg); SARS CoV2 RNA(COVID-19) InHosp NEGATIVE (Negative)
[2021-01-04 18:41] LABS: T4 Free Thyroxine 0.79 ng/dl (0.8-1.6)
[2021-01-04] MEDS ORDERED: SODIUM CHLORIDE 0.9% 500 ML IV ONE (18:57)
--- NOTE | 2021-01-04 18:57 | Emergency Department Note ---
Impression & Plan Chest pain, Hypertensive urgency, PAF (paroxysmal atrial fibrillation), Renal insufficiency ED Provider Note NAME: ISAIAH PRESTON AGE: 75 SEX: F ARRIVES VIA: Ambulance INFORMANT: Patient, ED PROVIDER(S): Erick Alves MD CHIEF COMPLAINT: Chest pain PLAN: Disposition: Admit MEDICAL DECISION MAKING: The patient is a pleasant 75-year-old woman with a past medical history of dementia, hypertension, hyperlipidemia, CKD, CAD, paroxysmal atrial fibrillation on Coumadin who presents to the emergency department department company by her daughter who is concerned for episode of chest pain that happened today when she was at a visit to have steroid injection in both knees for arthritis when she had an initial episode of chest pain and shortness of breath lasted approximately 5 minutes which reports resolved with aspirin and nitroglycerin by EMS and a subsequent 5-minute episode that again resolved with nitroglycerin. Upon arrival to the emergency department the patient denies any symptoms at this time. Otherwise she has been healthy in the 90 fevers, chills, cough, congestion, GI or symptoms. The daughter is concerned because she never complains of chest pain and despite her dementia she reports she feels as though she knows her body. On arrival patient is no acute distress, afebrile with hypertension 190s-200s/60s-80s vital signs otherwise stable. She appears clinically dry. Exam is otherwise unremarkable. EKG without overt acute ischemia. CXR negative for acute cardiopulmonary process. WBC, H/H, platelets wnl. Chemistry without acidosis. Cr 1.28 increased from recent with BUN/Cr ~20 c/w patient's clinically dry appearance. Electrolytes unremarkable. LFTs without significant abnormality. Initial Troponin negative/undetectable. BNP wnl. Lipase is not elevated. TSH 4.7 with free T4 0.79. UA without convincing infection. Covid-19, Influenza, and RSV PCR negative. Given the patient's complaint of CP, which had resolved with nitroglycerin DECK CADET, reasonable to admit for further evaluation per patient's daug hter's preference. Patient is a agreeable as well. Case was discussed with Dr. Garza, [facility] hospitalist, who will evaluate the patient for admission. Will defer BP control to admitting team as patient is asymptomatic at this time. Triage Nursing notes reviewed and agree them. Prior medical records reviewed Vital Signs: reviewed and remarkable for no significant abnormalities Differential diagnosis: Cardiac ischemia, aortic dissection, pulmonary embolism, pneumothorax, pneumonia, pericarditis, myocarditis, esophageal rupture, GERD, cholecystitis, pancreatitis, musculoskeletal, as well as other pathologies. ER treatment provided: See below. Diagnostics interpreted by me: ECG: Sinus bradycardia, 53 bpm, no ectopy, non-specific ST abnormality, no overt ST elevation or depression. Cardiac Monitoring: An order for continuous cardiac monitoring was placed and demonstrated Sinus bradycardia, 53 bpm, no ectopy. Laboratory studies: See below Imaging studies: XR chest 1V portable CLINICAL HISTORY: Atypical chest pain COMPARISON STUDY: 10/31/2020 FINDINGS: The heart is borderline enlarged. There is no failure. There is no focal pulmonary consolidation. There are no pleural effusions. A 9 mm opacity within the left apex is felt to represent a summation with the left first costochondral junction.[ IMPRESSION: No active disease in the chest. ACT 112: Negative or not required by law. Consultation(s): Case was discussed with Dr. Garza, [facility] hospitalist, who will evaluate the patient for admission. HPI: The patient is a pleasant 75-year-old woman with a past medical history of dementia, hypertension, hyperlipidemia, CKD, CAD, paroxysmal atrial fibrillation on Coumadin who presents to the emergency department department company by her daughter who is concerned for episode of chest pain that happened today when she was at a visit to have steroid injection in both knees for arthritis when she had an initial episode of chest pain and shortness of breath lasted approximately 5 minutes which reports resolved with aspirin and nitroglycerin by EMS and a subsequent 5-minute episode that again resolved with nitroglycerin. Upon arrival to the emergency department the patient denies any symptoms at this time. Otherwise she has been healthy in the 90 fevers, chills, cough, congestion, GI or symptoms. The daughter is concerned because she never complains of chest pain and despite her dementia she reports she feels as though she knows her body. ROS: See above HPI for pertinent positives & negatives. A total of 10 systems reviewed and were otherwise negative. PAST MEDICAL HISTORY:See Below PAST SURGICAL HISTORY:See Below FAMILY HISTORY:See Below SOCIAL HISTORY:See Below HOME MEDICATIONS:See Below ALLERGIES:See Below VITALS:See Below PHYSICAL EXAMINATION: GENERAL: Awake, alert, well-appearing, in no distress HENT: Normocephalic, atraumatic. Oropharynx unremarkable. EYES: Normal conjunctiva. Sclera non-icteric. NECK: Supple. No nuchal rigidity. FROM. No JVD. RESPIRATORY: Clear to auscultation. CARDIAC: Regular rate, normal rhythm. Extremities warm and well perfused. Pulses equal. ABDOMEN: Soft, non-distended. No tenderness to palpation. No rebound or guarding. No masses. RECTAL: Deferred. MUSCULOSKELETAL: Chest examination reveals no tenderness. The back is symmetrical on inspection without obvious abnormality. There is no CVA tenderness to palpation. No joint edema. LOWER EXTREMITIES: Calves are equal size bilaterally and non-tender. No edema. No discoloration. NEURO: Normal sensorium. No sensory or motor deficits noted. SKIN: No rash or jaundice noted. Erick Alves MD Past Med/Surg History Medical History Anxiety Chronic anticoagulation CKD (chronic kidney disease), stage III GERD (gastroesophageal reflux disease) History of left hip replacement Hypertension Mild dementia Pulmonary embolism Takotsubo cardiomyopathy Surgical History History of adenoidectomy History of appendectomy History of cardiac catheterization History of hysterectomy History of lumpectomy History of tonsillectomy History of tooth extraction Family History Brother Myocardial infarction Mother Uterine cancer Social History Smoking Status: Never smoker Second Hand Exposure: No; Do You Dip or Chew Tobacco: No; Tobacco Cessation Education Requested by Patient: No Hx Alcohol Use: No Hx Substance Use: No Preferred Language: [place] Communication Ability: Effective Slot 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 Required: No Beliefs That Will Affect Care: None marital status: Current Living Situation: Family Current Living Situation Comment: Dtr lives with her Other Information That Helps Us Care for You: No Feels Safe at Home: Yes Safety Concerns: Feels Safe At This Time Assistive Devices: Denture - Upper and Denture - Lower Allergies Allergies Allergy/AdvReac Type Severity Reaction Status Date / Time codeine Allergy Severe SHORTNESS Verified 01/04/21 19:39 OF BREATH morphine AdvReac Intermediate dizzy/nause Verified 01/04/21 19:39 a onion AdvReac Mild Headache Verified 01/04/21 19:39 caffeine AdvReac Anxiety Verified 01/04/21 19:39 Home Meds Home Medications Medication Instructions Recorded Confirmed aspirin 81 mg PO DAILY 06/17/18 01/04/21 atorvastatin 40 mg PO HS 06/17/18 01/04/21 carvedilol 25 mg PO BID 06/17/18 01/04/21 cyanocobalamin (vitamin B-12) 1,000 mcg PO DAILY 06/17/18 01/04/21 duloxetine 30 mg PO DAILY 06/17/18 01/04/21 furosemide 40 mg PO QAM 06/17/18 01/04/21 pantoprazole 40 mg PO DAILYBB 06/17/18 01/04/21 potassium chloride 20 meq PO DAILY 06/17/18 01/04/21 sennosides-docusate sodium [Senna 1 tab PO HS 06/17/18 01/04/21 Plus] Vitron-C 1 tab PO DAILY 02/28/20 01/04/21 cholecalciferol (vitamin D3) 50 mcg PO DAILY 02/28/20 01/04/21 [Vitamin D3] nystatin 1 applic TOPICAL BID PRN 03/08/20 01/04/21 docusate sodium 100 mg PO HS 10/31/20 01/04/21 polyethylene glycol 3350 [Miralax] 17 g PO DAILY PRN 10/31/20 01/04/21 gabapentin See Rx Instructions .ROUTE .COMPLEX 01/04/21 01/04/21 hydrocodone-acetaminophen 1 tab PO BID PRN 01/04/21 01/04/21 sertraline 50 mg PO DAILY 01/04/21 01/04/21 spironolactone 25 mg PO QAM 01/04/21 01/04/21 trazodone 100 mg PO HS 01/04/21 01/04/21 warfarin 4 mg PO UD 01/04/21 01/04/21 Previous Rx's Medication Instructions Recorded amlodipine 5 mg PO HS #30 tab 11/04/20 losartan 100 mg PO DAILY #30 tab 11/04/20 Results & Data (ED) Vital Signs Vital Signs - 24 hr 01/04/21 16:31 01/04/21 16:40 01/04/21 17:25 Temperature 37.1 C Temperature Source Oral Pulse Rate 54 L 56 L Pulse Rate [Bilateral Radial] 54 L Pulse Rhythm Regular Regular Pulse Rhythm [Bilateral Radial] Regular Pulse Strength Normal Pulse Strength [Bilateral Radial] Normal Respiratory Rate 16 16 18 Respiratory Effort / Characteristics Non-Labored Non-Labored Respiratory Depth Normal Normal Respiratory Pattern Regular Regular Blood Pressure 198/69 H Blood Pressure [Left Arm] 198/69 H Blood Pressure Mean 112 Blood Pressure Mean [Left Arm] 112 Blood Pressure Position Sitting Blood Pressure Position [Left Arm] Sitting Pulse Oximetry 97 97 56 L Oxygen Delivery Method Nasal Cannula Nasal Cannula Room Air Oxygen Flow Rate 2 2 Sepsis Recent Fever Within 48 Hours No Sepsis New/Unexplained Change in Mental Status No Sepsis Action Taken by Nursing No Action Required 01/04/21 17:27 01/04/21 18:27 01/04/21 20:00 Temperature Temperature Source Pulse Rate Pulse Rate [Bilateral Radial] 59 L 65 Pulse Rhythm Pulse Rhythm [Bilateral Radial] Regular Pulse Strength Pulse Strength [Bilateral Radial] Normal Respiratory Rate 18 16 Respiratory Effort / Characteristics Non-Labored Respiratory Depth Normal Normal Respiratory Pattern Regular Blood Pressure Blood Pressure [Left Arm] 221/84 H 236/93 H 229/87 H Blood Pressure Mean Blood Pressure Mean [Left Arm] 129 140 134 Blood Pressure Position Blood Pressure Position [Left Arm] Sitting Sitting Lying Pulse Oximetry 97 98 Oxygen Delivery Method Room Air Room Air Oxygen Flow Rate Sepsis Recent Fever Within 48 Hours Sepsis New/Unexplained Change in Mental Status Sepsis Action Taken by Nursing Laboratory Data Attestation: I reviewed the patient's lab results. Result diagrams: 01/04/21 17:42 01/04/21 17:42 Lab Results 01/04/21 01/04/21 01/04/21 Range/Units 17:31 17:31 17:42 WBC 7.05 (4.8-10.8) K/uL RBC 3.98 L (4.2-5.4) M/uL Hgb 12.7 (12.0-16.0) g/dL Hct 39.4 (37-47) % MCV 99.0 (80-100) fL MCH 31.9 (25-34) pg MCHC 32.2 (32-36) g/dL RDW Std Deviation 53.4 H (36.4-46.3) fL RDW Coeff of Jame 14.8 H (11.5-14.5) % Plt Count 270 (130-400) K/uL MPV 10.2 (7.4-10.4) fL Immature Gran % (Auto) 0.3 % Neut % (Auto) 70.2 % Lymph % (Auto) 23.8 % [place] % (Auto) 3.4 % Eos % (Auto) 2.0 % Baso % (Auto) 0.3 % Neut # (Auto) 4.95 (1.4-6.5) K/uL Lymph # (Auto) 1.68 (1.2-3.4) K/uL [place] # (Auto) 0.24 (0.11-0.59) K/uL Eos # (Auto) 0.14 (0-0.5) K/uL Baso # (Auto) 0.02 (0-0.2) K/uL Immature Gran # (Auto) 0.02 (0.00-0.02) K/uL PT (9.0-12.0) Seconds INR (0.9-1.1) Sodium (136-145) mmol/L Potassium (3.5-5.1) mmol/L Chloride (98-107) mmol/L Carbon Dioxide (21-32) mmol/L Anion Gap (3-11) BUN (7-18) mg/dl Creatinine (0.6-1.2) mg/dl Est Cr Clr Drug Dosing ml/min Est GFR ( Amer) Est GFR (Non-Af Amer) BUN/Creatinine Ratio (10-20) Glucose (70-99) mg/dl Calcium (8.5-10.1) mg/dl Phosphorus (2.5-4.9) mg/dl Magnesium (1.8-2.4) mg/dl Total Bilirubin (0.2-1) mg/dl Direct Bilirubin (0-0.2) mg/dl AST (15-37) U/L ALT (12-78) U/L Alkaline Phosphatase (45-117) U/L Troponin I (0-0.045) ng/ml NT-Pro-B Natriuret Pep (0-1800) pg/ml Total Protein (6.4-8.2) gm/dl Albumin (3.4-5.0) gm/dl Globulin (2.5-4.0) gm/dl Albumin/Globulin Ratio (0.9-2) Lipase (73-393) U/L TSH (0.300-4.500) uIu/ml Free T4 (0.8-1.6) ng/dl COVID-19 Eval Order CovFluRsv at [facility] SARS-CoV-2 (PCR) NEGATIVE (Negative) Influenza Type A (PCR) Negative (Neg) Influenza Type B (PCR) Negative (Neg) RSV (RT-PCR) Negative (Neg) 01/04/21 01/04/21 01/04/21 Range/Units 17:42 17:42 20:49 WBC (4.8-10.8) K/uL RBC (4.2-5.4) M/uL Hgb (12.0-16.0) g/dL Hct (37-47) % MCV (80-100) fL MCH (25-34) pg MCHC (32-36) g/dL RDW Std Deviation (36.4-46.3) fL RDW Coeff of Jame (11.5-14.5) % Plt Count (130-400) K/uL MPV (7.4-10.4) fL Immature Gran % (Auto) % Neut % (Auto) % Lymph % (Auto) % [place] % (Auto) % Eos % (Auto) % Baso % (Auto) % Neut # (Auto) (1.4-6.5) K/uL Lymph # (Auto) (1.2-3.4) K/uL [place] # (Auto) (0.11-0.59) K/uL Eos # (Auto) (0-0.5) K/uL Baso # (Auto) (0-0.2) K/uL Immature Gran # (Auto) (0.00-0.02) K/uL PT 21.2 H (9.0-12.0) Seconds INR 2.2 H (0.9-1.1) Sodium 141 (136-145) mmol/L Potassium 3.8 (3.5-5.1) mmol/L Chloride 107 (98-107) mmol/L Carbon Dioxide 30 (21-32) mmol/L Anion Gap 3.0 (3-11) BUN 25 H (7-18) mg/dl Creatinine 1.28 H (0.6-1.2) mg/dl Est Cr Clr Drug Dosing 39.6 ml/min Est GFR ( Amer) 47.0 Est GFR (Non-Af Amer) 40.6 BUN/Creatinine Ratio 19.4 (10-20) Glucose 126 H (70-99) mg/dl Calcium 9.3 (8.5-10.1) mg/dl Phosphorus 3.3 (2.5-4.9) mg/dl Magnesium 2.3 (1.8-2.4) mg/dl Total Bilirubin 0.4 (0.2-1) mg/dl Direct Bilirubin < 0.1 (0-0.2) mg/dl AST 17 (15-37) U/L ALT 18 (12-78) U/L Alkaline Phosphatase 124 H (45-117) U/L Troponin I < 0.015 0.023 (0-0.045) ng/ml NT-Pro-B Natriuret Pep 1458 (0-1800) pg/ml Total Protein 7.9 (6.4-8.2) gm/dl Albumin 3.8 (3.4-5.0) gm/dl Globulin 4.1 H (2.5-4.0) gm/dl Albumin/Globulin Ratio 0.9 (0.9-2) Lipase 257 (73-393) U/L TSH 4.740 H (0.300-4.500) uIu/ml Free T4 0.79 L (0.8-1.6) ng/dl COVID-19 Eval Order SARS-CoV-2 (PCR) (Negative) Influenza Type A (PCR) (Neg) Influenza Type B (PCR) (Neg) RSV (RT-PCR) (Neg) Administered Medications Carvedilol (Carvedilol 12.5 Mg Tab) 12.5 mg PO BID MAGDALENE Stop: 02/03/21 23:42 Last Admin: 01/05/21 00:48 Dose: 12.5 mg Documented by: [id number] Potassium Chloride/Sodium Chloride (1/2 Nss + 20meq Kcl 1000ml) 20 meq in 1,000 mls @ 50 mls/hr IV .Q20H ONE Stop: 01/05/21 19:42 Last Admin: 01/05/21 00:48 Dose: 50 mls/hr Documented by: [id number] Discontinued Medications Amlodipine Besylate (Amlodipine Besylate 5 Mg Tab) 5 mg PO NOW ONE Stop: 01/04/21 20:52 Last Admin: 01/04/21 21:58 Dose: 5 mg Documented by: [id number] Amlodipine Besylate (Amlodipine Besylate 5 Mg Tab) 5 mg PO NOW ONE Stop: 01/04/21 23:57 Last Admin: 01/05/21 00:48 Dose: 5 mg Documented by: [id number] Hydralazine HCl (Hydralazine Hcl 20 Mg/Ml Vial) 10 mg IV NOW STA Stop: 01/04/21 20:16 Last Admin: 01/04/21 20:51 Dose: 10 mg Documented by: [id number] Hydralazine HCl (Hydralazine Hcl 20 Mg/Ml Vial) 10 mg IV NOW STA Stop: 01/04/21 23:57 Last Admin: 01/05/21 00:49 Dose: 10 mg Documented by: [id number] Sodium Chloride (Nss) 500 mls @ 999 mls/hr IV .Q31M ONE Stop: 01/04/21 19:27 Last Infusion: 01/04/21 22:19 Dose: 0 mls/hr Documented by: [id number] Admin: 01/04/21 19:38 Dose: 999 mls/hr Documented by: [id number] Discharge Plan Visit Data Chief Complaint: Chest Pain Stated Complaint: CHEST DISCOMFORT, BRADYCARDIC ED Provider: Erick Alves Discharge Problem: Chest pain, Hypertensive urgency, PAF (paroxysmal atrial fibrillation), Renal insufficiency Patient Disposition: Admitted As Inpatient Discharge Instructions Interventions: ED Discharge Assessment Last Done: 01/04/21 23:18 Discharge Problem: Chest pain Qualifiers: Chest pain type: unspecified Qualified Code(s): R07.9 - Chest pain, unspecified
[2021-01-04] MEDS ORDERED: hydrALAZINE HCL 20 MG/ML VIAL IV STA ×2 (20:15→23:56)
[2021-01-04] MEDS ORDERED: amLODIPine BESYLATE 5 MG TAB PO ONE ×2 (20:51→23:56)
--- NOTE | 2021-01-04 21:15 | History & Physical Report ---
Date of Service January 04, 2021 Assessment & Plan (1) Chest pain: Possibly from uncontrolled hypertension secondary to arthritis pain Untreated JANIS possibly contributory Rule out ACS given relief with nitroglycerin PAF on Coumadin, patient bradycardic, INR therapeutic History pulmonary embolism as per records Chronic diastolic heart failure, Takotsubo cardiomyopathy as per records, patient euvolemic to dry ARF, recent spironolactone Rx for CHF hyperlipidemia on statin Rx chronic anemia, hemoglobin better than baseline possibly from hemoconcentration Steroid-induced hyperglycemia, possible prediabetes, hemoglobin A1c of 6.1 last 2017 dementia, at baseline OBS PCU Titrate amlodipine Baseline UA, monitor creatinine response to IVF Appropriate to hold home diuretic, ARB, spironolactone for now until creatinine back to baseline Cardiology consult RE chest pain, uncontrolled hypertension Follow troponin, n.p.o. if with troponin elevation until patient seen by Cardiology Update hemoglobin A1c DVT prophylaxis. Coumadin INR goal between 2 and 3 Full code as per daughter Patient daughter requesting updates from providers. Marycarmen Jeffers, contact #[phone]. Text document was generated using [employer] voice recognition software. It may contain grammatical or spelling errors. Kindly contact undersigned for clarification of any documentation item in question. History of Present Illness Chief Complaint: Chest pain as per records I do not know as per patient Primary Care Provider: Junie Jeffers MD History obtained from patient, family, and records. Limited history from patient secondary to dementia. Medical history significant for PAF on Coumadin, chronic diastolic heart failure (EF 55%, TTE 2020), Takotsubo cardiomyopathy as per records, pulmonary hypertension as per records, hypertension, hyperlipidemia, hx pulmonary embolism as per records, chronic anemia (baseline hemoglobin of 10), dementia. Last confinement October 2020 for uncontrolled hypertension and metabolic encephalopathy. Patient seen at [facility] cardiology office last week. Patient reportedly with dyspnea, peripheral edema, and weight gain symptoms. SBP 180 at time of visit. Spironolactone initiated for CHF. Patient seen at PCP's office today for bilateral knee pain attributed to osteoarthritis. Steroid injections administered to both knees. SBP during visit 170s. As patient stood up to walk to exam room, patient put her hand to her chest and complained of chest pain. EKG done at the office showed new septal infarct as per documentation. Chest pain improved by nitroglycerin. Patient brought by EMS to the ER. Patient currently comfortable and does not know why she is at the ER. Patient denies chest pain, S OB, cough, headache symptoms. Medical History as above Surgical History : Ear surgery, hip replacement, LALY, tonsillectomy/adenoidectomy, breast lumpectomy, appendectomy Family History : Lung cancer, uterine cancer, breast cancer, heart disease, TIA Personal/Social history : Non-smoker, no EtOH intake, lives with daughter Allergies Allergy/AdvReac Type Severity Reaction Status Date / Time codeine Allergy Severe SHORTNESS Verified 01/04/21 19:39 OF BREATH morphine AdvReac Intermediate dizzy/nause Verified 01/04/21 19:39 a onion AdvReac Mild Headache Verified 01/04/21 19:39 caffeine AdvReac Anxiety Verified 01/04/21 19:39 Home Medications Medication Instructions Recorded Confirmed Type aspirin 81 mg PO DAILY 06/17/18 01/04/21 History atorvastatin 40 mg PO HS 06/17/18 01/04/21 History carvedilol 25 mg PO BID 06/17/18 01/04/21 History cyanocobalamin (vitamin B-12) 1,000 mcg PO DAILY 06/17/18 01/04/21 History duloxetine 30 mg PO DAILY 06/17/18 01/04/21 History furosemide 40 mg PO QAM 06/17/18 01/04/21 History pantoprazole 40 mg PO DAILYBB 06/17/18 01/04/21 History potassium chloride 20 meq PO DAILY 06/17/18 01/04/21 History sennosides-docusate sodium [Senna 1 tab PO HS 06/17/18 01/04/21 History Plus] Vitron-C 1 tab PO DAILY 02/28/20 01/04/21 History cholecalciferol (vitamin D3) 50 mcg PO DAILY 02/28/20 01/04/21 History [Vitamin D3] nystatin 1 applic TOPICAL BID PRN 03/08/20 01/04/21 History docusate sodium 100 mg PO HS 10/31/20 01/04/21 History polyethylene glycol 3350 [Miralax] 17 g PO DAILY PRN 10/31/20 01/04/21 History amlodipine 5 mg PO HS #30 tab 11/04/20 01/04/21 Rx losartan 100 mg PO DAILY #30 tab 11/04/20 01/04/21 Rx gabapentin See Rx Instructions .ROUTE .COMPLEX 01/04/21 01/04/21 History hydrocodone-acetaminophen 1 tab PO BID PRN 01/04/21 01/04/21 History sertraline 50 mg PO DAILY 01/04/21 01/04/21 History spironolactone 25 mg PO QAM 01/04/21 01/04/21 History trazodone 100 mg PO HS 01/04/21 01/04/21 History warfarin 4 mg PO UD 01/04/21 01/04/21 History Past Med/Surg History Medical History Anxiety Chronic anticoagulation CKD (chronic kidney disease), stage III GERD (gastroesophageal reflux disease) History of left hip replacement Hypertension Mild dementia Pulmonary embolism Takotsubo cardiomyopathy Surgical History History of adenoidectomy History of appendectomy History of cardiac catheterization History of hysterectomy History of lumpectomy History of tonsillectomy History of tooth extraction Family History Brother Myocardial infarction Mother Uterine cancer Social History Smoking Status: Never smoker Second Hand Exposure: No; Do You Dip or Chew Tobacco: No; Tobacco Cessation Education Requested by Patient: No Hx Alcohol Use: No Hx Substance Use: No Preferred Language: Greek Communication Ability: Effective 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 Beliefs That Will Affect Care: None marital status: Current Living Situation: Family Current Living Situation Comment: Dtr lives with her Other Information That Helps Us Care for You: No Feels Safe at Home: Yes Safety Concerns: Feels Safe At This Time Assistive Devices: Denture - Upper and Denture - Lower Review of Systems Review of Systems: Could not be reliably obtained Physical Exam Physical Exam: GENERAL: Comfortable, demented, no respiratory distress SKIN: Pallor, warm HEENT: Pale palpebral conjunctivae, no ptosis, dry buccal mucosa NECK : Supple, no tenderness CHEST : Decreased breath sounds, no tenderness HEART : Bradycardic, systolic murmur ABDOMEN: Some distention, nontender EXTREMITIES : No LE swelling, bilateral knee tenderness, no other conspicuous deformities noted NEUROLOGIC : demented, no facial asymmetry, no other gross focality Results & Data Results & Data ([facility]) Vital Signs (Past 12 Hours) Vital Signs Temp Pulse Pulse Resp BP BP Pulse Ox 01/04/21 20:00 65 16 229/87 H 98 01/04/21 18:27 59 L 18 236/93 H 97 01/04/21 17:27 221/84 H 01/04/21 17:25 56 L 18 56 L 01/04/21 16:40 37.1 C 54 L 16 198/69 H 97 01/04/21 16:31 54 L 16 198/69 H 97 Laboratory Results Laboratory Results WBC 7.05 K/uL (4.8-10.8) 01/04/21 17:42 RBC 3.98 M/uL (4.2-5.4) L 01/04/21 17:42 Hgb 12.7 g/dL (12.0-16.0) 01/04/21 17:42 Hct 39.4 % (37-47) 01/04/21 17:42 MCV 99.0 fL (80-100) 01/04/21 17:42 MCH 31.9 pg (25-34) 01/04/21 17:42 MCHC 32.2 g/dL (32-36) 01/04/21 17:42 RDW Std Deviation 53.4 fL (36.4-46.3) H 01/04/21 17:42 RDW Coeff of Jame 14.8 % (11.5-14.5) H 01/04/21 17:42 Plt Count 270 K/uL (130-400) 01/04/21 17:42 MPV 10.2 fL (7.4-10.4) 01/04/21 17:42 Immature Gran % (Auto) 0.3 % 01/04/21 17:42 Neut % (Auto) 70.2 % 01/04/21 17:42 Lymph % (Auto) 23.8 % 01/04/21 17:42 [place] % (Auto) 3.4 % 01/04/21 17:42 Eos % (Auto) 2.0 % 01/04/21 17:42 Baso % (Auto) 0.3 % 01/04/21 17:42 Neut # (Auto) 4.95 K/uL (1.4-6.5) 01/04/21 17:42 Lymph # (Auto) 1.68 K/uL (1.2-3.4) 01/04/21 17:42 [place] # (Auto) 0.24 K/uL (0.11-0.59) 01/04/21 17:42 Eos # (Auto) 0.14 K/uL (0-0.5) 01/04/21 17:42 Baso # (Auto) 0.02 K/uL (0-0.2) 01/04/21 17:42 Immature Gran # (Auto) 0.02 K/uL (0.00-0.02) 01/04/21 17:42 PT 21.2 Seconds (9.0-12.0) H 01/04/21 17:42 INR 2.2 (0.9-1.1) H 01/04/21 17:42 Sodium 141 mmol/L (136-145) 01/04/21 17:42 Potassium 3.8 mmol/L (3.5-5.1) 01/04/21 17:42 Chloride 107 mmol/L (98-107) 01/04/21 17:42 Carbon Dioxide 30 mmol/L (21-32) 01/04/21 17:42 Anion Gap 3.0 (3-11) 01/04/21 17:42 BUN 25 mg/dl (7-18) H 01/04/21 17:42 Creatinine 1.28 mg/dl (0.6-1.2) H 01/04/21 17:42 Est Cr Clr Drug Dosing 39.6 ml/min 01/04/21 17:42 Est GFR ( Amer) 47.0 01/04/21 17:42 Est GFR (Non-Af Amer) 40.6 01/04/21 17:42 BUN/Creatinine Ratio 19.4 (10-20) 01/04/21 17:42 Glucose 126 mg/dl (70-99) H 01/04/21 17:42 Calcium 9.3 mg/dl (8.5-10.1) 01/04/21 17:42 Phosphorus 3.3 mg/dl (2.5-4.9) 01/04/21 17:42 Magnesium 2.3 mg/dl (1.8-2.4) 01/04/21 17:42 Total Bilirubin 0.4 mg/dl (0.2-1) 01/04/21 17:42 Direct Bilirubin < 0.1 mg/dl (0-0.2) 01/04/21 17:42 AST 17 U/L (15-37) 01/04/21 17:42 ALT 18 U/L (12-78) 01/04/21 17:42 Alkaline Phosphatase 124 U/L (45-117) H 01/04/21 17:42 Troponin I < 0.015 ng/ml (0-0.045) 01/04/21 17:42 NT-Pro-B Natriuret Pep 1458 pg/ml (0-1800) 01/04/21 17:42 Total Protein 7.9 gm/dl (6.4-8.2) 01/04/21 17:42 Albumin 3.8 gm/dl (3.4-5.0) 01/04/21 17:42 Globulin 4.1 gm/dl (2.5-4.0) H 01/04/21 17:42 Albumin/Globulin Ratio 0.9 (0.9-2) 01/04/21 17:42 Lipase 257 U/L (73-393) 01/04/21 17:42 TSH 4.740 uIu/ml (0.300-4.500) H 01/04/21 17:42 Free T4 0.79 ng/dl (0.8-1.6) L 01/04/21 17:42 COVID-19 Eval Order CovFluRsv at [facility] 01/04/21 17:31 SARS-CoV-2 (PCR) NEGATIVE (Negative) 01/04/21 17:31 Influenza Type A (PCR) Negative (Neg) 01/04/21 17:31 Influenza Type B (PCR) Negative (Neg) 01/04/21 17:31 RSV (RT-PCR) Negative (Neg) 01/04/21 17:31 Diagnostic Findings Chest x-ray : No active disease in the chest. EKG as per my interpretation : Rate 55, sinus bradycardia, normal axis, no ischemia
[2021-01-04] MEDS ORDERED: carvediloL 12.5 MG TAB PO SCH (23:43)
[2021-01-04] MEDS ORDERED: HYDROCODONE/ACETAMOPHEN 5/325MG TAB PO PRN (23:43)
[2021-01-04] MEDS ORDERED: POLYETHYLENE (MIRALAX) 17 GM PACK PO PRN (23:43)
[2021-01-04] MEDS ORDERED: traMADol HCL 50 MG TABLET PO PRN (23:43)
[2021-01-04] MEDS ORDERED: SODIUM CHLOR 0.45% + 20MEQ KCL 20 MEQ/1,000 ML BAG IV ONE (23:43)
[2021-01-04] MEDS ORDERED: OLANZapine 10 MG/2.1 ML SDV IM PRN (23:43)
[2021-01-05 01:23] LABS: Appearance Urine Clear (Clear); Bacteria Urine Automated Negative (Negative); Bilirubin Urine Negative (Negative); Blood Urine 2+ (Negative); Cast Urine Automated 0 /lpf (0-5); Color Urine Yellow; Epithelial Cell Urine Auto 20-30 /lpf (0-5); Glucose Urine UA Negative (Negative); Ketones Urine Negative (Negative); Leukocyte Esterase Urine Trace (Negative); Nitrite Urine Negative (Negative); Protein Urine 2+ (Negative); Specific Gravity Urine 1.012 (1.000-1.030); Urobilinogen Urine Negative (Negative); pH Urine 7.5 (4.5-7.5)
[2021-01-05 04:31] LABS: Basophils # (auto) 0.01 K/uL (0-0.2); Basophils % (auto) 0.1 %; Hematocrit (blood only) 38.1 % (37-47); Hemoglobin 12.7 g/dL (12.0-16.0); Immature Granulocytes # (auto) 0.06 K/uL (0.00-0.02); Immature Granulocytes % (auto) 0.5 %; Lymphocytes # (auto) 1.62 K/uL (1.2-3.4); Mean Corpuscular Hemoglobin 31.7 pg (25-34); Mean Corpuscular Hgb Conc 33.3 g/dL (32-36); Mean Platelet Volume 10.1 fL (7.4-10.4); Monocytes # (auto) 0.08 K/uL (0.11-0.59); Monocytes % (auto) 0.6 %; Neutrophils # (auto) 10.68 K/uL (1.4-6.5); Neutrophils % (auto) 85.8 %; Platelet Count 265 K/uL (130-400); RDW Coefficient of Variation 14.4 % (11.5-14.5); RDW Standard Deviation 49.9 fL (36.4-46.3); Red Blood Count 4.01 M/uL (4.2-5.4); White Blood Count 12.45 K/uL (4.8-10.8)
[2021-01-05 04:43] LABS: Prothrombin Time 19.5 Seconds (9.0-12.0)
[2021-01-05 04:50] LABS: BUN Creatinine Ratio 24.5 (10-20); Calcium 8.9 mg/dl (8.5-10.1); Est GFR (African American) 64.9; Potassium 3.7 mmol/L (3.5-5.1)
[2021-01-05 05:04] LABS: Troponin I 0.085 ng/ml (0-0.045)
[2021-01-05] MEDS ORDERED: ACETAMINOPHEN 325 MG TAB PO PRN (05:17)
[2021-01-05] MEDS ORDERED: carvediloL 25 MG TAB PO SCH ×2 (05:20→09:00)
[2021-01-05] MEDS ORDERED: PANTOprazole 40 MG TAB PO SCH (06:30)
--- NOTE | 2021-01-05 08:40 | Cardiology Consultation ---
Date of Consultation January 05, 2021 Assessment & Plan (1) Hypertensive urgency: (2) Chest pain: (3) Elevated troponin: (4) Dementia: (5) Chronic diastolic HF (heart failure), NYHA class 2: Patient admitted with chest pain in the outpatient setting and hypertensive urgency. Minimally elevated troponin noted this morning, likely due to demand ischemia from uncontrolled hypertension. She denies recurrent chest pain (ROS may be limited due to dementia) Her BP may also be elevated due to situational stressors, as apparently, prior to consult, she was quite agitated and wants to go home. She has no acute EKG changes during admission. Diuretics were held on admission to borderline elevated creatinine. Now improved. Echo was ordered but it now appears she had 1 in the outpatient setting 2 weeks ago. Will cancel. Patient was not cooperative. Will resume low dose furosemide 20 mg and spironolactone 12.5 mg to aid with hypertension BMP tomorrow (or as an outpatient if discharged). Continue amlodipine, carvedilol. Consider hydralazine if needed for additional BP support. Case discussed with Dr. Daniel. Supervising Physician Co-Signing Physician Notes Patient seen and examined with Laury Hernandez PA-C. Agree with findings and assessment as above. Pt presented with hypertensive urgency and BP is now controlled. Very anxious for discharge. Significant risk. D/c to home with above medication changes as well as losartan 25mg. will need bmp and visit with pcp in 1 week. History of Present Illness Reason for Consultation: Chest pain Requesting Physician: Dr. Flores Attending Physician: Dr. Daniel History of Present Illness Patient is a 75 year old female who is known to [facility], following with Shira Gil PA-C as an outpatient, most recently approx 1-2 weeks ago. She has underlying dementia and history is obtained from inpatient and outpatient records. She carries a history of diastolic HF and recently found to have worsening symptoms suggestive of acute decompensation. Furosemide and spironolactone titrated with improvement in her edema/SOB. 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 Yesterday patient was seeing PCP for knee injections and as she walked out of the exam room, she reported substernal chest pain. EKG obtained and there was questionable new Q waves in the septal leads and she was referred to the ER for evaluation and treatment. BP at time of office visit was elevated in the 170's. When she arrived in ER, BP was significantly higher. Repeat EKG demonstrated NSR without Q waves and no abnormal ST-T wave abnormalities. She was admitted for further evaluation and treatment due to hypertensive urgency. Cardiology was consulted for further blood pressure management as well as mildly elevated troponin this morning. Per nursing staff, patient has been not cooperative and almost combative this morning. She has pulled out 4 IV's and does not allow IV access at this time. Echo was attempted, but not completed. At time of consult, patient sitting in a chair coloring with crayons. She denies complaints. Wants to go home. BP remains elevated. She was treated with Several doses of IV hydralazine. Amlodipine was increased. Diuretics were on hold due to mild renal insufficiency, but creatinine this morning is normal Cardiac Problem List: 1. History of acute myocardial infarction, Takosubo cardiomyopathy, with normal LVEF per recent echo 2. History of mild reduction in LV systolic function 3. Hypertension, hypertensive heart disease 4. History of palpitations, atrial and ventricular ectopy. Chart history of paroxysmal atrial fibrillation. 5. Chart history an atrial septal aneurysm, small secundum atrial septal defect' Allergies Allergy/AdvReac Type Severity Reaction Status Date / Time codeine Allergy Severe SHORTNESS Verified 01/04/21 19:39 OF BREATH morphine AdvReac Intermediate dizzy/nause Verified 01/04/21 19:39 a onion AdvReac Mild Headache Verified 01/04/21 19:39 caffeine AdvReac Anxiety Verified 01/04/21 19:39 Home Medications Medication Instructions Recorded Confirmed Type aspirin 81 mg PO DAILY 06/17/18 01/04/21 History atorvastatin 40 mg PO HS 06/17/18 01/04/21 History carvedilol 25 mg PO BID 06/17/18 01/04/21 History cyanocobalamin (vitamin B-12) 1,000 mcg PO DAILY 06/17/18 01/04/21 History duloxetine 30 mg PO DAILY 06/17/18 01/04/21 History furosemide 40 mg PO QAM 06/17/18 01/04/21 History pantoprazole 40 mg PO DAILYBB 06/17/18 01/04/21 History potassium chloride 20 meq PO DAILY 06/17/18 01/04/21 History sennosides-docusate sodium [Senna 1 tab PO HS 06/17/18 01/04/21 History Plus] Vitron-C 1 tab PO DAILY 02/28/20 01/04/21 History cholecalciferol (vitamin D3) 50 mcg PO DAILY 02/28/20 01/04/21 History [Vitamin D3] nystatin 1 applic TOPICAL BID PRN 03/08/20 01/04/21 History docusate sodium 100 mg PO HS 10/31/20 01/04/21 History polyethylene glycol 3350 [Miralax] 17 g PO DAILY PRN 10/31/20 01/04/21 History amlodipine 5 mg PO HS #30 tab 11/04/20 01/04/21 Rx losartan 100 mg PO DAILY #30 tab 11/04/20 01/04/21 Rx gabapentin See Rx Instructions .ROUTE .COMPLEX 01/04/21 01/04/21 History hydrocodone-acetaminophen 1 tab PO BID PRN 01/04/21 01/04/21 History sertraline 50 mg PO DAILY 01/04/21 01/04/21 History spironolactone 25 mg PO QAM 01/04/21 01/04/21 History trazodone 100 mg PO HS 01/04/21 01/04/21 History warfarin 4 mg PO UD 01/04/21 01/04/21 History Patient History Medical History Anxiety Chronic anticoagulation CKD (chronic kidney disease), stage III GERD (gastroesophageal reflux disease) History of left hip replacement Hypertension Mild dementia Pulmonary embolism Takotsubo cardiomyopathy Surgical History History of adenoidectomy History of appendectomy History of cardiac catheterization History of hysterectomy History of lumpectomy History of tonsillectomy History of tooth extraction Family History Brother Myocardial infarction Mother Uterine cancer Social History Smoking Status: Never smoker Second Hand Exposure: No; Do You Dip or Chew Tobacco: No; Tobacco Cessation Education Requested by Patient: No Hx Alcohol Use: No Hx Substance Use: No Preferred Language: Azeri Communication Ability: Impaired Viscose Cellar Charge Hand Required: No Beliefs That Will Affect Care: None marital status: Current Living Situation: Family Current Living Situation Comment: Dtr lives with her Other Information That Helps Us Care for You: No Feels Safe at Home: Yes Safety Concerns: Feels Safe At This Time Assistive Devices: Denture - Upper and Denture - Lower Review of Systems Review of Systems: Unobtainable due to cognitive status Physical Exam Constitutional: WD/WN, vitals as above well nourished; no acute distress Eyes: PERRL, conjunctivae normal, anicteric sclerae ENMT: external ear and nose normal, oropharynx normal Neck: trachea midline, no thyromegaly Respiratory: normal respiratory effort, lungs clear to auscultation Cardiovascular: Rate/Rhythm: regular rate and regular rhythm Heart Sounds: + murmur (I/ systolic murmur) Vessels: no JVD Extremities: + edema (1+ LE edema b/l ) Gastrointestinal (Abdomen): normal bowel sounds, soft, nontender, no hepatosplenomegaly Musculoskeletal: no cyanosis or clubbing, extremities motor strength 5/5 Neurologic: PERRL, EOMI, accommodation nl, no face palsy, no dysarthria + confused Psychiatric: Orientation: alert, oriented to person and oriented to place Results & Data ([facility]) Vital Signs (Past 12 Hours) Vital Signs Temp Pulse Pulse Pulse Resp BP BP 01/05/21 07:51 36.8 C 77 19 189/86 H 01/05/21 04:20 36.7 C 76 20 178/90 H 01/05/21 02:00 79 16 180/84 H 01/05/21 01:05 77 18 217/100 H 01/05/21 00:00 79 01/04/21 23:52 36.7 C 89 16 264/112 H 01/04/21 23:18 61 16 190/70 H 01/04/21 23:12 230/70 H 01/04/21 21:28 66 16 190/76 H Pulse Ox 01/05/21 07:51 96 01/05/21 04:20 98 01/05/21 02:00 01/05/21 01:05 01/05/21 00:00 01/04/21 23:52 96 01/04/21 23:18 97 01/04/21 23:12 01/04/21 21:28 98 Laboratory Results 01/05/21 01/05/21 01/05/21 Range/Units 04:13 04:13 04:13 WBC 12.45 H (4.8-10.8) K/uL RBC 4.01 L (4.2-5.4) M/uL Hgb 12.7 (12.0-16.0) g/dL Hct 38.1 (37-47) % MCV 95.0 (80-100) fL MCH 31.7 (25-34) pg MCHC 33.3 (32-36) g/dL RDW Std Deviation 49.9 H (36.4-46.3) fL RDW Coeff of Jame 14.4 (11.5-14.5) % Plt Count 265 (130-400) K/uL MPV 10.1 (7.4-10.4) fL Immature Gran % (Auto) 0.5 % Neut % (Auto) 85.8 % Lymph % (Auto) 13.0 % [place] % (Auto) 0.6 % Eos % (Auto) 0.0 % Baso % (Auto) 0.1 % Neut # (Auto) 10.68 H (1.4-6.5) K/uL Lymph # (Auto) 1.62 (1.2-3.4) K/uL [place] # (Auto) 0.08 L (0.11-0.59) K/uL Eos # (Auto) 0.00 (0-0.5) K/uL Baso # (Auto) 0.01 (0-0.2) K/uL Immature Gran # (Auto) 0.06 H (0.00-0.02) K/uL PT 19.5 H (9.0-12.0) Seconds INR 2.0 H (0.9-1.1) Sodium 141 (136-145) mmol/L Potassium 3.7 (3.5-5.1) mmol/L Chloride 110 H (98-107) mmol/L Carbon Dioxide 27 (21-32) mmol/L Anion Gap 4.0 (3-11) BUN 24 H (7-18) mg/dl Creatinine 0.98 D (0.6-1.2) mg/dl Est Cr Clr Drug Dosing 51.0 ml/min Est GFR ( Amer) 64.9 Est GFR (Non-Af Amer) 56.0 BUN/Creatinine Ratio 24.5 H (10-20) Glucose 150 H (70-99) mg/dl Calcium 8.9 (8.5-10.1) mg/dl Phosphorus (2.5-4.9) mg/dl Magnesium (1.8-2.4) mg/dl Total Bilirubin (0.2-1) mg/dl Direct Bilirubin (0-0.2) mg/dl AST (15-37) U/L ALT (12-78) U/L Alkaline Phosphatase (45-117) U/L Troponin I 0.085 H* (0-0.045) ng/ml NT-Pro-B Natriuret Pep (0-1800) pg/ml Total Protein (6.4-8.2) gm/dl Albumin (3.4-5.0) gm/dl Globulin (2.5-4.0) gm/dl Albumin/Globulin Ratio (0.9-2) Lipase (73-393) U/L TSH (0.300-4.500) uIu/ml Free T4 (0.8-1.6) ng/dl Urine Color Urine Appearance (Clear) Urine pH (4.5-7.5) Ur Specific [place] (1.000-1.030) Urine Protein (Negative) Urine Glucose (UA) (Negative) Urine Ketones (Negative) Urine Blood (Negative) Urine Nitrite (Negative) Urine Bilirubin (Negative) Urine Urobilinogen (Negative) Ur Leukocyte Esterase (Negative) Urine WBC (Auto) (0-5) /hpf Urine RBC (Auto) (0-4) /hpf U Hyaline Cast (Auto) (0-5) /lpf U Epithel Cells (Auto) (0-5) /lpf Urine Bacteria (Auto) (Negative) COVID-19 Eval Order SARS-CoV-2 (PCR) (Negative) Influenza Type A (PCR) (Neg) Influenza Type B (PCR) (Neg) RSV (RT-PCR) (Neg) 01/05/21 01/04/21 01/04/21 Range/Units 01:10 20:49 17:42 WBC (4.8-10.8) K/uL RBC (4.2-5.4) M/uL Hgb (12.0-16.0) g/dL Hct (37-47) % MCV (80-100) fL MCH (25-34) pg MCHC (32-36) g/dL RDW Std Deviation (36.4-46.3) fL RDW Coeff of Jame (11.5-14.5) % Plt Count (130-400) K/uL MPV (7.4-10.4) fL Immature Gran % (Auto) % Neut % (Auto) % Lymph % (Auto) % [place] % (Auto) % Eos % (Auto) % Baso % (Auto) % Neut # (Auto) (1.4-6.5) K/uL Lymph # (Auto) (1.2-3.4) K/uL [place] # (Auto) (0.11-0.59) K/uL Eos # (Auto) (0-0.5) K/uL Baso # (Auto) (0-0.2) K/uL Immature Gran # (Auto) (0.00-0.02) K/uL PT (9.0-12.0) Seconds INR (0.9-1.1) Sodium 141 (136-145) mmol/L Potassium 3.8 (3.5-5.1) mmol/L Chloride 107 (98-107) mmol/L Carbon Dioxide 30 (21-32) mmol/L Anion Gap 3.0 (3-11) BUN 25 H (7-18) mg/dl Creatinine 1.28 H (0.6-1.2) mg/dl Est Cr Clr Drug Dosing 39.6 ml/min Est GFR ( Amer) 47.0 Est GFR (Non-Af Amer) 40.6 BUN/Creatinine Ratio 19.4 (10-20) Glucose 126 H (70-99) mg/dl Calcium 9.3 (8.5-10.1) mg/dl Phosphorus 3.3 (2.5-4.9) mg/dl Magnesium 2.3 (1.8-2.4) mg/dl Total Bilirubin 0.4 (0.2-1) mg/dl Direct Bilirubin < 0.1 (0-0.2) mg/dl AST 17 (15-37) U/L ALT 18 (12-78) U/L Alkaline Phosphatase 124 H (45-117) U/L Troponin I 0.023 < 0.015 (0-0.045) ng/ml NT-Pro-B Natriuret Pep 1458 (0-1800) pg/ml Total Protein 7.9 (6.4-8.2) gm/dl Albumin 3.8 (3.4-5.0) gm/dl Globulin 4.1 H (2.5-4.0) gm/dl Albumin/Globulin Ratio 0.9 (0.9-2) Lipase 257 (73-393) U/L TSH 4.740 H (0.300-4.500) uIu/ml Free T4 0.79 L (0.8-1.6) ng/dl Urine Color Yellow Urine Appearance Clear (Clear) Urine pH 7.5 (4.5-7.5) Ur Specific [place] 1.012 (1.000-1.030) Urine Protein 2+ H (Negative) Urine Glucose (UA) Negative (Negative) Urine Ketones Negative (Negative) Urine Blood 2+ H (Negative) Urine Nitrite Negative (Negative) Urine Bilirubin Negative (Negative) Urine Urobilinogen Negative (Negative) Ur Leukocyte Esterase Trace H (Negative) Urine WBC (Auto) 1-5 (0-5) /hpf Urine RBC (Auto) 10-30 H (0-4) /hpf U Hyaline Cast (Auto) 0 (0-5) /lpf U Epithel Cells (Auto) 20-30 H (0-5) /lpf Urine Bacteria (Auto) Negative (Negative) COVID-19 Eval Order SARS-CoV-2 (PCR) (Negative) Influenza Type A (PCR) (Neg) Influenza Type B (PCR) (Neg) RSV (RT-PCR) (Neg) 01/04/21 01/04/21 01/04/21 Range/Units 17:42 17:42 17:31 WBC 7.05 (4.8-10.8) K/uL RBC 3.98 L (4.2-5.4) M/uL Hgb 12.7 (12.0-16.0) g/dL Hct 39.4 (37-47) % MCV 99.0 (80-100) fL MCH 31.9 (25-34) pg MCHC 32.2 (32-36) g/dL RDW Std Deviation 53.4 H (36.4-46.3) fL RDW Coeff of Jame 14.8 H (11.5-14.5) % Plt Count 270 (130-400) K/uL MPV 10.2 (7.4-10.4) fL Immature Gran % (Auto) 0.3 % Neut % (Auto) 70.2 % Lymph % (Auto) 23.8 % [place] % (Auto) 3.4 % Eos % (Auto) 2.0 % Baso % (Auto) 0.3 % Neut # (Auto) 4.95 (1.4-6.5) K/uL Lymph # (Auto) 1.68 (1.2-3.4) K/uL [place] # (Auto) 0.24 (0.11-0.59) K/uL Eos # (Auto) 0.14 (0-0.5) K/uL Baso # (Auto) 0.02 (0-0.2) K/uL Immature Gran # (Auto) 0.02 (0.00-0.02) K/uL PT 21.2 H (9.0-12.0) Seconds INR 2.2 H (0.9-1.1) Sodium (136-145) mmol/L Potassium (3.5-5.1) mmol/L Chloride (98-107) mmol/L Carbon Dioxide (21-32) mmol/L Anion Gap (3-11) BUN (7-18) mg/dl Creatinine (0.6-1.2) mg/dl Est Cr Clr Drug Dosing ml/min Est GFR ( Amer) Est GFR (Non-Af Amer) BUN/Creatinine Ratio (10-20) Glucose (70-99) mg/dl Calcium (8.5-10.1) mg/dl Phosphorus (2.5-4.9) mg/dl Magnesium (1.8-2.4) mg/dl Total Bilirubin (0.2-1) mg/dl Direct Bilirubin (0-0.2) mg/dl AST (15-37) U/L ALT (12-78) U/L Alkaline Phosphatase (45-117) U/L Troponin I (0-0.045) ng/ml NT-Pro-B Natriuret Pep (0-1800) pg/ml Total Protein (6.4-8.2) gm/dl Albumin (3.4-5.0) gm/dl Globulin (2.5-4.0) gm/dl Albumin/Globulin Ratio (0.9-2) Lipase (73-393) U/L TSH (0.300-4.500) uIu/ml Free T4 (0.8-1.6) ng/dl Urine Color Urine Appearance (Clear) Urine pH (4.5-7.5) Ur Specific [place] (1.000-1.030) Urine Protein (Negative) Urine Glucose (UA) (Negative) Urine Ketones (Negative) Urine Blood (Negative) Urine Nitrite (Negative) Urine Bilirubin (Negative) Urine Urobilinogen (Negative) Ur Leukocyte Esterase (Negative) Urine WBC (Auto) (0-5) /hpf Urine RBC (Auto) (0-4) /hpf U Hyaline Cast (Auto) (0-5) /lpf U Epithel Cells (Auto) (0-5) /lpf Urine Bacteria (Auto) (Negative) COVID-19 Eval Order SARS-CoV-2 (PCR) NEGATIVE (Negative) Influenza Type A (PCR) Negative (Neg) Influenza Type B (PCR) Negative (Neg) RSV (RT-PCR) Negative (Neg) 01/04/21 Range/Units 17:31 WBC (4.8-10.8) K/uL RBC (4.2-5.4) M/uL Hgb (12.0-16.0) g/dL Hct (37-47) % MCV (80-100) fL MCH (25-34) pg MCHC (32-36) g/dL RDW Std Deviation (36.4-46.3) fL RDW Coeff of Jame (11.5-14.5) % Plt Count (130-400) K/uL MPV (7.4-10.4) fL Immature Gran % (Auto) % Neut % (Auto) % Lymph % (Auto) % [place] % (Auto) % Eos % (Auto) % Baso % (Auto) % Neut # (Auto) (1.4-6.5) K/uL Lymph # (Auto) (1.2-3.4) K/uL [place] # (Auto) (0.11-0.59) K/uL Eos # (Auto) (0-0.5) K/uL Baso # (Auto) (0-0.2) K/uL Immature Gran # (Auto) (0.00-0.02) K/uL PT (9.0-12.0) Seconds INR (0.9-1.1) Sodium (136-145) mmol/L Potassium (3.5-5.1) mmol/L Chloride (98-107) mmol/L Carbon Dioxide (21-32) mmol/L Anion Gap (3-11) BUN (7-18) mg/dl Creatinine (0.6-1.2) mg/dl Est Cr Clr Drug Dosing ml/min Est GFR ( Amer) Est GFR (Non-Af Amer) BUN/Creatinine Ratio (10-20) Glucose (70-99) mg/dl Calcium (8.5-10.1) mg/dl Phosphorus (2.5-4.9) mg/dl Magnesium (1.8-2.4) mg/dl Total Bilirubin (0.2-1) mg/dl Direct Bilirubin (0-0.2) mg/dl AST (15-37) U/L ALT (12-78) U/L Alkaline Phosphatase (45-117) U/L Troponin I (0-0.045) ng/ml NT-Pro-B Natriuret Pep (0-1800) pg/ml Total Protein (6.4-8.2) gm/dl Albumin (3.4-5.0) gm/dl Globulin (2.5-4.0) gm/dl Albumin/Globulin Ratio (0.9-2) Lipase (73-393) U/L TSH (0.300-4.500) uIu/ml Free T4 (0.8-1.6) ng/dl Urine Color Urine Appearance (Clear) Urine pH (4.5-7.5) Ur Specific [place] (1.000-1.030) Urine Protein (Negative) Urine Glucose (UA) (Negative) Urine Ketones (Negative) Urine Blood (Negative) Urine Nitrite (Negative) Urine Bilirubin (Negative) Urine Urobilinogen (Negative) Ur Leukocyte Esterase (Negative) Urine WBC (Auto) (0-5) /hpf Urine RBC (Auto) (0-4) /hpf U Hyaline Cast (Auto) (0-5) /lpf U Epithel Cells (Auto) (0-5) /lpf Urine Bacteria (Auto) (Negative) COVID-19 Eval Order CovFluRsv at [facility] SARS-CoV-2 (PCR) (Negative) Influenza Type A (PCR) (Neg) Influenza Type B (PCR) (Neg) RSV (RT-PCR) (Neg) Diagnostic Findings Telemetry - N/A - patient removed leads Chest xray on admission - IMPRESSION: No active disease in the chest. EKG on admission: NSR, previously reported septal infarct on outpatient EKG, no longer evident. No acute ST/T wave changes noted EKG reviewed from PCP office 01/04/21: NSR with PAC's, possible age undetermined septal infarct Prior Data: November 01, 2020 TTE Interpretation Summary ([facility], Dr. Michaels): Compared to prior study, there is no significant change. No interatrial shunt. No evidence of an atrial septal defect. Mild concentric LVH. EF 55 to 60%. Grade 1 diastolic dysfunction. Normal RV function. Moderately dilated left atrium. Normal size right atrium. Mild aortic valve sclerosis without significant aortic valve stenosis. Mild mitral regurgitation. December 22, 2020 TTE Interpretation Summary (as per Dr. Michaels): The left ventricular cavity size is normal. The LV wall thickness is mildly increased (concentric). The left ventricular wall motion is normal. Qualitative LV ejection Fraction = 55%. The left ventricular diastolic function is moderately abnormal (grade II). The left atrium is severely enlarged (>48 ml/m^2,). Mild aortic valve sclerosis is present. The inter-atrial septum bows toward the right atrium consistent with high left atrial pressure. Moderate mitral regurgitation is present. Normal IVC size and collapsability with sniff indicates a normal right atrial pressure of 3 mmHg. The estimated pulmonary artery systolic pressure is 55mm Hg. Compared to most recent previous study, significant changes have occurred. Pulmonary hypertension is now present; left atrium is now severely enlarged; Grade II diastolic dysfunction is present. Medications Administered Current Inpatient Medications Acetaminophen (Acetaminophen 325 Mg Tab) 650 mg PO Q4H PRN PRN Reason: Pain or Fever Stop: 02/04/21 05:16 Amlodipine Besylate (Amlodipine Besylate 5 Mg Tab) 10 mg PO HS MAGDALEEN Stop: 02/04/21 20:59 Aspirin (Aspirin 81 Mg Ectab) 81 mg PO DAILY MAGDALENE Stop: 02/04/21 08:59 Atorvastatin Calcium (Atorvastatin 40 Mg Tab) 40 mg PO HS MAGDALENE Stop: 02/04/21 20:59 Carvedilol (Carvedilol 25 Mg Tab) 25 mg PO BID MAGDALENE Stop: 02/04/21 05:19 Cyanocobalamin (Cyanocobalamin 500 Mcg Tablet (Vitamin B-12)) 1,000 mcg PO DAILY MAGDALENE Stop: 02/04/21 08:59 Docusate Sodium (Docusate Sodium 100 Mg Cap) 100 mg PO HS MAGDALENE Stop: 02/04/21 20:59 Duloxetine HCl (Duloxetine Hcl 30 Mg Cap) 30 mg PO DAILY MAGDALENE Stop: 02/04/21 08:59 Potassium Chloride/Sodium Chloride (1/2 Nss + 20meq Kcl 1000ml) 20 meq in 1,000 mls @ 50 mls/hr IV .Q20H ONE Stop: 01/05/21 19:42 Last Admin: 01/05/21 00:48 Dose: 50 mls/hr Documented by: Olanzapine (Olanzapine 10 Mg/2.1 Ml Sdv) 2.5 mg IM Q4H PRN PRN Reason: Anxiety/Agitation Stop: 02/03/21 23:42 Pantoprazole Sodium (Pantoprazole 40 Mg Tab) 40 mg PO DAILYBB MAGDALENE Stop: 02/04/21 06:29 Polyethylene Glycol (Polyethylene (Miralax) 17 Gm Pack) 17 gm PO DAILY PRN PRN Reason: Constipation Stop: 02/03/21 23:42 Senna/Docusate Sodium (Docusate Sodium/Senna 50/8.6mg Tab) 1 tab PO HS MAGDALENE Stop: 02/04/21 20:59 Sertraline HCl (Sertraline Hcl 50 Mg Tablet) 50 mg PO DAILY MAGDALENE Stop: 02/04/21 08:59 Tramadol HCl (Tramadol Hcl 50 Mg Tablet) 25 - 50 mg PO Q4H PRN PRN Reason: Pain Stop: 02/03/21 23:42 Trazodone HCl (Trazodone Hcl 100 Mg Tab) 100 mg PO HS MAGDALENE Stop: 02/04/21 20:59 Medications aspirin 81 mg PO DAILY 06/17/18 [History Confirmed 01/04/21] atorvastatin 40 mg PO HS 06/17/18 [History Confirmed 01/04/21] carvedilol 25 mg PO BID 06/17/18 [History Confirmed 01/04/21] cyanocobalamin (vitamin B-12) 1,000 mcg PO DAILY 06/17/18 [History Confirmed 01/04/21] duloxetine 30 mg PO DAILY 06/17/18 [History Confirmed 01/04/21] furosemide 40 mg PO QAM 06/17/18 [History Confirmed 01/04/21] pantoprazole 40 mg PO DAILYBB 06/17/18 [History Confirmed 01/04/21] potassium chloride 20 meq PO DAILY 06/17/18 [History Confirmed 01/04/21] sennosides-docusate sodium [Senna Plus] 1 tab PO HS 06/17/18 [History Confirmed 01/04/21] Vitron-C 1 tab PO DAILY 02/28/20 [History Confirmed 01/04/21] cholecalciferol (vitamin D3) [Vitamin D3] 50 mcg PO DAILY 02/28/20 [History Confirmed 01/04/21] nystatin 1 applic TOPICAL BID PRN 03/08/20 [History Confirmed 01/04/21] docusate sodium 100 mg PO HS 10/31/20 [History Confirmed 01/04/21] polyethylene glycol 3350 [Miralax] 17 g PO DAILY PRN 10/31/20 [History Confirmed 01/04/21] amlodipine 5 mg PO HS #30 tab 11/04/20 [Rx Confirmed 01/04/21] losartan 100 mg PO DAILY #30 tab 11/04/20 [Rx Confirmed 01/04/21] gabapentin See Rx Instructions .ROUTE .COMPLEX 01/04/21 [History Confirmed 01/04/21] hydrocodone-acetaminophen 1 tab PO BID PRN 01/04/21 [History Confirmed 01/04/21] sertraline 50 mg PO DAILY 01/04/21 [History Confirmed 01/04/21] spironolactone 25 mg PO QAM 01/04/21 [History Confirmed 01/04/21] trazodone 100 mg PO HS 01/04/21 [History Confirmed 01/04/21] warfarin 4 mg PO UD 01/04/21 [History Confirmed 03/24/21] Home Medications Acetaminophen (Acetaminophen 325 Mg Tab) 650 mg PO Q4H PRN PRN Reason: Pain or Fever Stop: 02/04/21 05:16 Amlodipine Besylate (Amlodipine Besylate 5 Mg Tab) 10 mg PO HS MAGDALENE Stop: 02/04/21 20:59 Aspirin (Aspirin 81 Mg Ectab) 81 mg PO DAILY MAGDALENE Stop: 02/04/21 08:59 Atorvastatin Calcium (Atorvastatin 40 Mg Tab) 40 mg PO HS MAGDALENE Stop: 02/04/21 20:59 Carvedilol (Carvedilol 25 Mg Tab) 25 mg PO BID MAGDALENE Stop: 02/04/21 05:19 Cyanocobalamin (Cyanocobalamin 500 Mcg Tablet (Vitamin B-12)) 1,000 mcg PO DAILY MAGDALENE Stop: 02/04/21 08:59 Docusate Sodium (Docusate Sodium 100 Mg Cap) 100 mg PO HS MAGDALENE Stop: 02/04/21 20:59 Duloxetine HCl (Duloxetine Hcl 30 Mg Cap) 30 mg PO DAILY MAGDALENE Stop: 02/04/21 08:59 Potassium Chloride/Sodium Chloride (1/2 Nss + 20meq Kcl 1000ml) 20 meq in 1,000 mls @ 50 mls/hr IV .Q20H ONE Stop: 01/05/21 19:42 Last Admin: 01/05/21 00:48 Dose: 50 mls/hr Documented by: Olanzapine (Olanzapine 10 Mg/2.1 Ml Sdv) 2.5 mg IM Q4H PRN PRN Reason: Anxiety/Agitation Stop: 02/03/21 23:42 Pantoprazole Sodium (Pantoprazole 40 Mg Tab) 40 mg PO DAILYBB MAGDALENE Stop: 02/04/21 06:29 Polyethylene Glycol (Polyethylene (Miralax) 17 Gm Pack) 17 gm PO DAILY PRN PRN Reason: Constipation Stop: 02/03/21 23:42 Senna/Docusate Sodium (Docusate Sodium/Senna 50/8.6mg Tab) 1 tab PO HS [facility] Stop: 02/04/21 20:59 Sertraline HCl (Sertraline Hcl 50 Mg Tablet) 50 mg PO DAILY [facility] Stop: 02/04/21 08:59 Tramadol HCl (Tramadol Hcl 50 Mg Tablet) 25 - 50 mg PO Q4H PRN PRN Reason: Pain Stop: 02/03/21 23:42 Trazodone HCl (Trazodone Hcl 100 Mg Tab) 100 mg PO [facility] Stop: 02/04/21 20:59 (1) Chest pain Chest pain type: unspecified Qualified Code(s): R07.9 - Chest pain, unspecified
[2021-01-05] MEDS ORDERED: ASPIRIN 81 MG ECTAB PO SCH (09:00)
[2021-01-05] MEDS ORDERED: SERTRALINE HCL 50 MG TABLET PO SCH (09:00)
[2021-01-05] MEDS ORDERED: CYANOCOBALAMIN 500 MCG TABLET (VITAMIN B-12) PO SCH (09:00)
[2021-01-05] MEDS ORDERED: DULoxetine HCL 30 MG CAP PO SCH (09:00)
[2021-01-05] MEDS ORDERED: SPIRONOLACTONE 12.5 MG TAB PO SCH (10:30)
[2021-01-05] MEDS ORDERED: FUROSEMIDE 20 MG TAB PO SCH (10:30)
--- NOTE | 2021-01-05 11:43 | CT Scan Report ---
CT head/brain wo con CLINICAL HISTORY: Confused, H/O dementia COMPARISON STUDY: CT scan dated 10/31/2020, MRI the brain dated 11/01/2020 TECHNIQUE: Axial CT of the brain is performed from the vertex to the skull base. IV contrast was not administered for this examination. A dose lowering technique was utilized adhering to the principles of ALARA. CT DOSE: 638.56 mGycm FINDINGS: No intra or extra-axial mass lesions are visualized. There is no CT evidence of acute cortical infarc tion. There is no evidence of midline shift. There is no acute hemorrhage. No calvarial fractures ar e visualized. There are patchy white matter hypodensities likely on a small vessel basis. There is no evidence of pathologic ventricular dilatation. There is left maxillary sinus mucosal thickening. IMPRESSION: No acute intracranial findings ACT 112: Negative or not required by law. Electronically signed by: Rajinder Pandya M.D. 01/05/2021 11:42 AM
--- NOTE | 2021-01-05 14:45 | Hospitalist Progress Note ---
Date of Service January 05, 2021 Assessment & Plan (1) Chest pain: Hypertensive urgency Chest pain likely secondary to uncontrolled HTN Mild Troponin elevation: Likely Type II SD due to above EKG showed no signs of acute ischemia And recently had echo 2 weeks ago Continue amlodipine, carvedilol, also on furosemide, spironolactone Appreciate cardiology input Losartan currently held due to mild elevation in creatinine Amlodipine increased to 10 mg nightly while holding losartan Agitation Likely delirium H/O Dementia CT head:No acute intracranial findings Reorient frequently Mild leukocytosis No obvious source of infection Afebrile Monitor Paroxysmal atrial fibrillation Currently in sinus INR in therapeutic range Continue carvedilol On Coumadin for anticoagulation Monitor INR H/O PE Continue Coumadin Chronic diastolic heart failure H/O Takotsubo cardiomyopathy Resume home diuretics Monitor renal function, volume status Hyperlipidemia Continue Lipitor Steroid-induced hyperglycemia HbA1C: 5.6 on 11/01/20 Monitor DVT Px: On Coumadin Code Status Full Code Disposition Expect to discharge home when stable Ms. Marycarmen Jeffers, contact #[phone]. Admission and Anticipated Discharge Date Admission Date: January 04, 2021 Subjective Patient is seen and examined at bedside Intermittently agitated, pulling IV lines Sitter at bedside Sitting in chair comfortably during my encounter Denies chest pain, dyspnea, dizziness, nausea, abdominal pain History unreliable secondary to dementia Review of Systems Review of Systems: All systems reviewed & are unremarkable except as noted in HPI & below Physical Exam Physical Exam: Physical Exam: Vitals signs as noted above General Appearance:Moderately built and nourished, no apparent distress Head: normocephalic, Atraumatic Eyes: normal inspection, EOMI Neck: supple, Trachea midline Respiratory/Chest: Normal breath sounds, CTA, No accessory muscle use Cardiovascular: S1, S2, + Systolic murmur Abdomen/GI:Soft, Non tender, Bowel sounds present Extremities/Musculoskelatal:normal inspection, Trace pedal edema Neurologic/Psych:Alert, awake, oriented to person and place, grossly no focal neurological deficits Skin: normal color, warm Results & Data Results & Data ([facility]) Vital Signs (Past 12 Hours) Vital Signs Temp Pulse Pulse Pulse Resp BP Pulse Ox 01/05/21 11:21 36.7 C 66 20 179/62 H 93 01/05/21 11:13 140/62 01/05/21 08:00 76 01/05/21 07:51 36.8 C 77 19 189/86 H 96 01/05/21 04:20 36.7 C 76 20 178/90 H 98 Laboratory Results Short CBC 01/04/21 01/05/21 Range/Units 17:42 04:13 WBC 7.05 12.45 H (4.8-10.8) K/uL Hgb 12.7 12.7 (12.0-16.0) g/dL Hct 39.4 38.1 (37-47) % Plt Count 270 265 (130-400) K/uL BMP 01/04/21 01/05/21 17:42 04:13 Sodium 141 141 Potassium 3.8 3.7 Chloride 107 110 H Carbon Dioxide 30 27 BUN 25 H 24 H Creatinine 1.28 H 0.98 D Glucose 126 H 150 H Calcium 9.3 8.9 Cardiac Enzymes 01/04/21 01/04/21 01/05/21 Range/Units 17:42 20:49 04:13 Troponin I < 0.015 0.023 0.085 H* (0-0.045) ng/ml 01/05/21 Range/Units 09:36 Troponin I 0.070 H* (0-0.045) ng/ml Liver Function 01/04/21 Range/Units 17:42 Total Bilirubin 0.4 (0.2-1) mg/dl Direct Bilirubin < 0.1 (0-0.2) mg/dl AST 17 (15-37) U/L ALT 18 (12-78) U/L Alkaline Phosphatase 124 H (45-117) U/L Albumin 3.8 (3.4-5.0) gm/dl Urine 01/05/21 Range/Units 01:10 Urine Color Yellow Urine Appearance Clear (Clear) Urine pH 7.5 (4.5-7.5) Ur Specific Lindsay 1.012 (1.000-1.030) Urine Protein 2+ H (Negative) Urine Glucose (UA) Negative (Negative) (1) Chest pain Chest pain type: unspecified Qualified Code(s): R07.9 - Chest pain, unspecified
[2021-01-05] MEDS ORDERED: LOSARTAN POTASSIUM 25 MG TAB PO SCH (15:30)
[2021-01-05] MEDS ORDERED: WARFARIN SOD 3 MG TAB PO SCH (16:00)
--- NOTE | 2021-01-05 16:40 | Electrocardiogram Report ---
Test Reason : Blood Pressure : / mmHG Vent. Rate : 075 BPM Atrial Rate : 075 BPM P-R Int : 178 ms QRS Dur : 098 ms QT Int : 428 ms P-R-T Axes : 053 -25 049 degrees QTc Int : 477 ms Sinus rhythm with Premature atrial complexes Otherwise normal ECG When compared with ECG of 04-JAN-2021 16:26, (unconfirmed) Premature atrial complexes are now Present Confirmed by David Botello ([id number]) on 01/05/2021 4:40:05 PM Referred By: Junie Jeffers Confirmed By:Kashif Botello
--- NOTE | 2021-01-05 16:43 | Electrocardiogram Report ---
Test Reason : Blood Pressure : / mmHG Vent. Rate : 053 BPM Atrial Rate : 053 BPM P-R Int : 160 ms QRS Dur : 096 ms QT Int : 480 ms P-R-T Axes : 061 -19 042 degrees QTc Int : 450 ms Poor data quality, interpretation may be adversely affected Sinus bradycardia Otherwise normal ECG When compared with ECG of 01-NOV-2020 14:55, Non-specific change in ST segment in Inferior leads Confirmed by David Botello ([id number]) on 01/05/2021 4:43:07 PM Referred By: Junie Jeffers Confirmed By:Kashif Botello
--- NOTE | 2021-01-05 16:51 | Discharge Summary ---
Date of Service January 05, 2021 Admission HPI Per Admitting Provider History obtained from patient, family, and records. Limited history from patient secondary to dementia. Medical history significant for PAF on Coumadin, chronic diastolic heart failure (EF 55%, TTE 2020), Takotsubo cardiomyopathy as per records, pulmonary hypertension as per records, hypertension, hyperlipidemia, hx pulmonary embolism as per records, chronic anemia (baseline hemoglobin of 10), dementia. Last confinement October 2020 for uncontrolled hypertension and metabolic encephalopathy. [place] [facility] [place] last [place]. Patient reportedly with dyspnea, peripheral edema, and weight gain symptoms. SBP 180 at time of visit. Spironolactone initiated for CHF. Patient seen at PCP's office today for bilateral knee pain attributed to osteoarthritis. Steroid injections administered to both knees. SBP during visit 170s. As patient stood up to walk to exam room, patient put her hand to her chest and complained of chest pain. EKG done at the office showed new septal infarct as per documentation. Chest pain improved by nitroglycerin. Patient brought by EMS to the ER. Patient currently comfortable and does not know why she is at the ER. Patient denies chest pain, S OB, cough, headache symptoms. Medical History as above Surgical History : Ear surgery, hip replacement, LALY, tonsillectomy/adenoidectomy, breast lumpectomy, appendectomy Family History : Lung cancer, uterine cancer, breast cancer, heart disease, TIA Personal/Social history : Non-smoker, no EtOH intake, lives with daughter Admission Exam Per Admitting Provider Physical Exam Physical Exam: GENERAL: Comfortable, demented, no respiratory distress SKIN: Pallor, warm HEENT: Pale palpebral conjunctivae, no ptosis, dry buccal mucosa NECK : Supple, no tenderness CHEST : Decreased breath sounds, no tenderness HEART : Bradycardic, systolic murmur ABDOMEN: Some distention, nontender EXTREMITIES : No LE swelling, bilateral knee tenderness, no other conspicuous deformities noted NEUROLOGIC : demented, no facial asymmetry, no other gross focality Principal Diagnosis Hypertensive urgency Atypical Chest Pain Discharge Data Allergies Allergy/AdvReac Type Severity Reaction Status Date / Time codeine Allergy Severe SHORTNESS Verified 01/04/21 19:39 OF BREATH morphine AdvReac Intermediate dizzy/nause Verified 01/04/21 19:39 a onion AdvReac Mild Headache Verified 01/04/21 19:39 caffeine AdvReac Anxiety Verified 01/04/21 19:39 Consultations 01/04/21 19:34 ED Decision to Admit Stat 01/04/21 23:43 Consult Cardiology Routine Procedures Performed CT head:No acute intracranial findings CXR:No active disease in the chest. Ordered Studies 01/05/21 09:08 CT head/brain wo con Urgent Hospital Course (1) Chest pain: Hypertensive urgency Chest pain likely secondary to uncontrolled HTN Mild Troponin elevation: Likely Type II SD due to above EKG showed no signs of acute ischemia And recently had echo 2 weeks ago Continue amlodipine, carvedilol, also on furosemide, spironolactone Appreciate cardiology input Losartan currently held due to mild elevation in creatinine Amlodipine increased to 10 mg nightly while holding losartan Agitation Likely delirium H/O Dementia CT head:No acute intracranial findings Reorient frequently Mild leukocytosis No obvious source of infection Afebrile Monitor Paroxysmal atrial fibrillation Currently in sinus INR in therapeutic range Continue carvedilol On Coumadin for anticoagulation Monitor INR H/O PE Continue Coumadin Chronic diastolic heart failure H/O Takotsubo cardiomyopathy Resume home diuretics Monitor renal function, volume status Hyperlipidemia Continue Lipitor Steroid-induced hyperglycemia HbA1C: 5.6 on 11/01/20 Monitor DVT Px: On Coumadin Code Status Full Code Disposition Expect to discharge home when stable Ms. Marycarmen Jeffers, contact #[phone]. Total Time Total Time Spent Total Time Spent (In Minutes): 39 minutes Total Time Includes: Examination of the Patient, Discharge Planning, Medication Reconciliation, Communication With Other Providers and Other Discharge Plan Discharge Items Patient Disposition: Home - Self-Care Reason For Visit: CP Discharge Diagnosis: Hypertensive urgency Atypical Chest Pain Condition on Discharge: Good Activity: Per Instructions section Exercise/Sports: Gradually increase as tolerated Non-emergency contact: Primary Care Provider and [employer] Voucher Clerk Call non-emergency contact if: you have any medication questions, your symptoms worsen, your pain is not controlled, your pain is concerning for you and you sheth ve a fever Follow-up/Referrals: Junie Shore MD [Primary Care Provider] - Diet: Heart Healthy Ambulatory Orders: Basic Metabolic Panel (Routine) Timeframe: 1 Week Location: Determined by Patient Ordered By: Quoc Flores Add Attending Provider Instructions: Follow-up with your primary care physician Dr. Alexis Jeffers in 1 week as advised Follow-up with your doctor assistant Dr. Daniel in 2-4 weeks Get Blood Test (Basic Metabolic Panel) in 1 week and follow up with your Physician to monitor your renal function Take medications regularly. Seek immediate medical attention if your symptoms reoccur or worsen Pending Studies at Discharge: No Stand-Alone Forms: My [facility], Smoking Cessation Medications and DC Order Prescriptions: New losartan 25 mg Tablet 25 mg PO QAM Qty: 30 RF: 0 furosemide 20 mg Tablet 20 mg PO QAM Qty: 30 RF: 0 amlodipine 10 mg tablet 10 mg PO HS Qty: 30 RF: 0 Continued atorvastatin 40 mg Tablet 40 mg PO HS RF: 0 carvedilol 25 mg Tablet 25 mg PO BID RF: 0 sennosides-docusate sodium [Senna Plus] 8.6-50 mg Tablet 1 tab PO HS RF: 0 cyanocobalamin (vitamin B-12) 1,000 mcg Tablet 1,000 mcg PO DAILY RF: 0 aspirin 81 mg Tablet,Delayed Release (Dr/Ec) 81 mg PO DAILY RF: 0 pantoprazole 40 mg Tablet,Delayed Release (Dr/Ec) 40 mg PO DAILYBB RF: 0 duloxetine 30 mg Capsule,Delayed Release(Dr/Ec) 30 mg PO DAILY RF: 0 potassium chloride 20 mEq Tablet Extended Release 20 meq PO DAILY RF: 0 nystatin 100,000 unit/gram Cream 1 applic TOPICAL BID PRN (Reason: Skin Irritation) RF: 0 docusate sodium 100 mg Capsule 100 mg PO HS RF: 0 polyethylene glycol 3350 [Miralax] 17 gram/dose Powder 17 g PO DAILY PRN (Reason: Constipation) RF: 0 cholecalciferol (vitamin D3) [Vitamin D3] 50 mcg (2,000 unit) Tablet 50 mcg PO DAILY RF: 0 Vitron-C 65 mg iron- 125 mg tablet,delayed release (DR/EC) 1 tab PO DAILY RF: 0 hydrocodone-acetaminophen 5-325 mg tablet 1 tab PO BID PRN (Reason: Pain) RF: 0 sertraline 50 mg tablet 50 mg PO DAILY RF: 0 gabapentin 100 mg capsule See Rx Instructions .ROUTE .COMPLEX RF: 0 spironolactone 25 mg tablet 25 mg PO QAM RF: 0 warfarin 4 mg tablet 4 mg PO UD RF: 0 trazodone 100 mg tablet 100 mg PO HS RF: 0 Discontinued furosemide 40 mg Tablet 40 mg PO QAM RF: 0 losartan 100 mg tablet 100 mg PO DAILY Qty: 30 RF: 0 amlodipine 5 mg tablet 5 mg PO HS Qty: 30 RF: 0 Discharge Orders: Discharge Order (Routine); Ordered 01/05/21 Ordered By: Quoc Flores Admission Data Admit Date/Time: 01/04/21 21:18 Attending Provider: Quoc Flores Admit Provider: Jefferson Garza Primary Care Provider: Junie Shore Other Providers: Jefferson Garza ; Buster Daniel ; Santosh Sellers ; Bandar Zambrano ; Palmer Randall ; Iván Michaels ; Venkatesh Gil ; Laury Hernandez ; Samina Bernal ; Edy Cheung Other Interventions: Discharge Summary Assessment (RN) Last Done: 01/05/21 16:35
[2021-01-05] MEDS ORDERED: ATORVASTATIN 40 MG TAB PO SCH (21:00)
[2021-01-05] MEDS ORDERED: DOCUSATE SODIUM 100 MG CAP PO SCH (21:00)
[2021-01-05] MEDS ORDERED: traZODone HCL 100 MG TAB PO SCH (21:00)
[2021-01-05] MEDS ORDERED: amLODIPine BESYLATE 5 MG TAB PO SCH ×2 (21:00)
[2021-01-05] MEDS ORDERED: DOCUSATE SODIUM/SENNA 50/8.6MG TAB PO SCH (21:00)
--- NOTE | 2021-01-06 14:09 | Electrocardiogram Report ---
Test Reason : Blood Pressure : / mmHG Vent. Rate : 068 BPM Atrial Rate : 068 BPM P-R Int : 150 ms QRS Dur : 098 ms QT Int : 430 ms P-R-T Axes : 060 -23 050 degrees QTc Int : 457 ms Normal sinus rhythm Minimal voltage criteria for LVH, may be normal variant Borderline ECG When compared with ECG of 05-JAN-2021 06:03, Premature atrial complexes are no longer Present Confirmed by David Botello ([id number]) on 01/06/2021 2:08:39 PM Referred By: Junie Jeffers Confirmed By:Kashif Botello
== END 2021-01-05 18:14 | disposition home or self-care (01) ==
LOC: 1E 16:14 → ED 16:14 → 1E 23:18

== ENCOUNTER 2021-02-14 09:26 | Observation (INO) ==
[2021-02-14] MEDS ORDERED: cefTRIAXone SODIUM 1,000 MG/50 ML BAG IV STA (10:06)
[2021-02-14] MEDS ORDERED: SODIUM CHLORIDE 0.9% 500 ML IV ONE (10:06)
--- NOTE | 2021-02-14 10:11 | Emergency Department Note ---
Impression & Plan Sepsis, Pneumonia, Hypoxia ED Provider Note NAME: ISAIAH PRESTON AGE: 76 SEX: F : 1945 ARRIVES VIA: Ambulance INFORMANT: Patient ED PROVIDER(S): Austin Cintron DO CHIEF COMPLAINT: Fever, weakness HPI: Patient is a 76-year-old female with a past medical history of dementia, [place] on chronic Coumadin that presents to the ER for fever, shakiness and shortness o f breath which started this morning. Fever was as high as 101. Patient was brought in by EMS. Patient was found to be hypoxic at 82% on room air. She is at her baseline mentation. She fell 3 days ago and it was unwitnessed but she did not pass out as family heard a thud and went in and she was awake. She has bruising on the right back. She denies any headache or chest pain. No belly pain or any pain when she urinates. ROS: See above HPI for pertinent positives & negatives. A total of 10 systems reviewed and were otherwise negative. PAST MEDICAL HISTORY:See Below PAST SURGICAL HISTORY:See Below FAMILY HISTORY:See Below SOCIAL HISTORY:See Below HOME MEDICATIONS:See Below ALLERGIES:See Below VITALS:See Below PHYSICAL EXAMINATION: GENERAL: Sitting up in bed, alert, disheveled, chronically ill-appearing EYE EXAM: normal conjunctiva. OROPHARYNX: no exudate, no erythema, lips, buccal mucosa, and tongue normal and mucous membranes are dry NECK: supple, no nuchal rigidity, no adenopathy, non-tender LUNGS: Clear to auscultation. Normal chest wall mechanics HEART: no murmurs, S1 normal and S2 normal ABDOMEN: abdomen soft, non-tender, normo-active bowel sounds, no masses, no rebound or guarding. BACK: Back is symmetrical on inspection and there is no deformity, no midline tenderness, bruising in her right mid lateral thoracic region UPPER EXTREMITIES: upper extremities are grossly normal. Bruising of her bilateral upper extremities. Full range of motion without tenderness on palpation. LOWER EXTREMITIES: No pitting edema. Calves are equal bilateral. Bruising over bilateral lower extremities. Full range of motion without tenderness. NEURO EXAM: Awake alert following commands moving all extremities at baseline per daughter MEDICAL DECISION MAKING: Patient is a 76-year-old female who presents the ER with a history of dementia for fever tachycardia and shortness of breath. Patient was found to be hypoxic at 82% on room air. Does not wear oxygen at home. IV was established blood work was obtained. She is placed on nasal cannula. Labs showed mild anemia 11.5 thousand. INR was supratherapeutic at 3.9. BMP with slightly elevated chloride. Lactate was normal. LFTs bilirubin was unremarkable. Urine was clean. Covid was negative. With the recent fall CT of the head cervical spine chest abdomen pelvis was performed and showed bilateral pneumonia. Patient was covered with IV Rocephin and azithromycin. Updated bedside. Discussed with the hospitalist. Admitted for further work-up. Triage Nursing notes reviewed. Limited review of prior medical records performed Vital Signs: reviewed and remarkable for hypoxic and febrile Differential diagnosis: Differential diagnosis includes etiologies such as sepsis, UTI, pneumonia, metabolic, electrolyte abnormalities, cardiac sources, intracerebral event, toxicologic, neurological, as well as others were entertained. ER treatment provided: See below Diagnostics interpreted by me: ECG: Sinus rhythm rate of 64 Left axis PACs QTC 381 Cardiac Monitoring: An order was placed for continuous cardiac monitoring. The monitor shows a rate of 62 with sinus rhythm. Laboratory studies: As stated above and show below. Imaging studies: CT head, chest, abdomen, pelvis shows bilateral pneumonia Consultation(s): Discussed with hospitalist for further evaluation Procedures: none Critical Care: I have personally spent 35 minutes of critical care time in the direct management of this patient. This includes bedside care, interpretation of diagnostic studies, and testing, discussion with consultants, patient, and family members, and other required patient management activities. This 35 minutes is in excess of all separately billable procedures. Past Med/Surg History Medical History Anxiety Chronic anticoagulation CKD (chronic kidney disease), stage III GERD (gastroesophageal reflux disease) History of left hip replacement Hypertension Mild dementia Pulmonary embolism Takotsubo cardiomyopathy Surgical History History of adenoidectomy History of appendectomy History of cardiac catheterization History of hysterectomy History of lumpectomy History of tonsillectomy History of tooth extraction Family History Brother Myocardial infarction Mother Uterine cancer Social History Smoking Status: Never smoker Second Hand Exposure: No; Hx Alcohol Use: No Hx Substance Use: No Preferred Language: Kazakh Communication Ability: Impaired 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 Beliefs That Will Affect Care: None marital status: Current Living Situation: Family Current Living Situation Comment: Dtr lives with her Feels Safe at Home: Yes Assistive Devices: Denture - Upper and Denture - Lower Allergies Allergies Allergy/AdvReac Type Severity Reaction Status Date / Time codeine Allergy Severe SHORTNESS Verified 02/14/21 11:25 OF BREATH morphine AdvReac Intermediate dizzy/nause Verified 02/14/21 11:25 a onion AdvReac Mild Headache Verified 02/14/21 11:25 caffeine AdvReac Anxiety Verified 02/14/21 11:25 Home Meds Home Medications Medication Instructions Recorded Confirmed aspirin 81 mg PO .[email or web address] 06/17/18 02/14/21 atorvastatin 40 mg PO HS 06/17/18 02/14/21 carvedilol 25 mg PO BID 06/17/18 02/14/21 cyanocobalamin (vitamin B-12) 1,000 mcg PO QAM 06/17/18 02/14/21 pantoprazole 40 mg PO DAILYBB 06/17/18 02/14/21 sennosides-docusate sodium [Senna 1 tab PO HS 06/17/18 02/14/21 Plus] Vitron-C 1 tab PO QAM 02/28/20 02/14/21 cholecalciferol (vitamin D3) 50 mcg PO QDL 02/28/20 02/14/21 [Vitamin D3] nystatin 1 applic TOPICAL BID PRN 03/08/20 02/14/21 docusate sodium 100 mg PO HS 10/31/20 02/14/21 polyethylene glycol 3350 [Miralax] 17 g PO DAILY PRN 10/31/20 02/14/21 gabapentin See Rx Instructions .ROUTE .COMPLEX 01/04/21 02/14/21 hydrocodone-acetaminophen 1 tab PO BID PRN 01/04/21 02/14/21 sertraline 50 mg PO QAM 01/04/21 02/14/21 spironolactone 12.5 mg PO .[email or web address] 01/04/21 02/14/21 warfarin See Rx Instructions .ROUTE .COMPLEX 01/04/21 02/14/21 furosemide 20 mg PO .[email or web address] 02/14/21 02/14/21 furosemide 40 mg PO .[email or web address] 02/14/21 02/14/21 isosorbide mononitrate 60 mg PO QAM 02/14/21 02/14/21 Previous Rx's Medication Instructions Recorded amlodipine 10 mg PO HS #30 tab 01/05/21 losartan 25 mg PO QAM #30 tab 01/05/21 Results & Data (ED) Vital Signs Vital Signs - 24 hr 02/14/21 09:31 02/14/21 09:34 02/14/21 09:39 Temperature 37.7 C H Temperature Source Oral Pulse Rate 78 66 Pulse Rate from SpO2 Sensor 78 78 Respiratory Rate 15 20 22 Respiratory Effort / Characteristics Blood Pressure 144/54 H 144/54 H Blood Pressure Mean 84 84 Pulse Oximetry 90 90 85 L Oxygen Delivery Method Room Air Oxygen Flow Rate Sepsis Recent Fever Within 48 Hours Yes Sepsis New/Unexplained Change in Mental Status N/A Sepsis Action Taken by Nursing No Action Required 02/14/21 09:45 02/14/21 09:50 02/14/21 10:00 Temperature Temperature Source Pulse Rate Pulse Rate from SpO2 Sensor 80 65 Respiratory Rate 24 20 Respiratory Effort / Characteristics Blood Pressure Blood Pressure Mean Pulse Oximetry 93 94 96 Oxygen Delivery Method Nasal Cannula Oxygen Flow Rate 2 Sepsis Recent Fever Within 48 Hours Sepsis New/Unexplained Change in Mental Status Sepsis Action Taken by Nursing 02/14/21 10:15 02/14/21 10:30 02/14/21 10:33 Temperature Temperature Source Pulse Rate 66 Pulse Rate from SpO2 Sensor 68 66 Respiratory Rate 21 23 Respiratory Effort / Characteristics Blood Pressure Blood Pressure Mean Pulse Oximetry 95 95 95 Oxygen Delivery Method Nasal Cannula Oxygen Flow Rate 2 Sepsis Recent Fever Within 48 Hours Sepsis New/Unexplained Change in Mental Status Sepsis Action Taken by Nursing 02/14/21 10:45 02/14/21 10:51 02/14/21 11:00 Temperature Temperature Source Pulse Rate 75 63 Pulse Rate from SpO2 Sensor 66 64 Respiratory Rate 21 Respiratory Effort / Characteristics Non-Labored Spontaneous Blood Pressure Blood Pressure Mean Pulse Oximetry 94 94 94 Oxygen Delivery Method Nasal Cannula Oxygen Flow Rate 2 Sepsis Recent Fever Within 48 Hours Sepsis New/Unexplained Change in Mental Status Sepsis Action Taken by Nursing 02/14/21 11:46 02/14/21 11:47 02/14/21 12:01 Temperature Temperature Source Pulse Rate 69 70 Pulse Rate from SpO2 Sensor 69 70 Respiratory Rate 19 21 19 Respiratory Effort / Characteristics Blood Pressure 183/94 H 177/76 H Blood Pressure Mean 123 109 Pulse Oximetry 95 96 Oxygen Delivery Method Oxygen Flow Rate Sepsis Recent Fever Within 48 Hours Sepsis New/Unexplained Change in Mental Status Sepsis Action Taken by Nursing 02/14/21 12:16 02/14/21 12:31 02/14/21 12:46 Temperature Temperature Source Pulse Rate 66 72 66 Pulse Rate from SpO2 Sensor 67 72 66 Respiratory Rate 19 16 19 Respiratory Effort / Characteristics Blood Pressure 179/83 H 162/56 H 170/70 H Blood Pressure Mean 115 91 103 Pulse Oximetry 96 95 96 Oxygen Delivery Method Oxygen Flow Rate Sepsis Recent Fever Within 48 Hours Sepsis New/Unexplained Change in Mental Status Sepsis Action Taken by Nursing 02/14/21 13:01 02/14/21 13:17 Temperature Temperature Source Pulse Rate 66 65 Pulse Rate from SpO2 Sensor 66 65 Respiratory Rate 21 18 Respiratory Effort / Characteristics Blood Pressure 151/84 H 154/55 H Blood Pressure Mean 106 88 Pulse Oximetry 96 96 Oxygen Delivery Method Oxygen Flow Rate Sepsis Recent Fever Within 48 Hours Sepsis New/Unexplained Change in Mental Status Sepsis Action Taken by Nursing Laboratory Data Result diagrams: 02/14/21 10:38 02/14/21 10:38 Lab Results 02/14/21 02/14/21 02/14/21 Range/Units 10:12 10:12 10:25 WBC (4.8-10.8) K/uL RBC (4.2-5.4) M/uL Hgb (12.0-16.0) g/dL POC Hgb (12.0-16.0) g/dl Hct (37-47) % POC Hct (37-47) % MCV (80-100) fL MCH (25-34) pg MCHC (32-36) g/dL RDW Std Deviation (36.4-46.3) fL RDW Coeff of Jame (11.5-14.5) % Plt Count (130-400) K/uL MPV (7.4-10.4) fL Immature Gran % (Auto) % Neut % (Auto) % Lymph % (Auto) % [place] % (Auto) % Eos % (Auto) % Baso % (Auto) % Neut # (Auto) (1.4-6.5) K/uL Lymph # (Auto) (1.2-3.4) K/uL [place] # (Auto) (0.11-0.59) K/uL Eos # (Auto) (0-0.5) K/uL Baso # (Auto) (0-0.2) K/uL Immature Gran # (Auto) (0.00-0.02) K/uL PT (9.0-12.0) Seconds INR (0.9-1.1) APTT (21.0-31.0) Seconds PTT Ratio POC Sodium (135-144) mmol/L Sodium (136-145) mmol/L POC Potassium (3.3-5.0) mmol/L Potassium (3.5-5.1) mmol/L POC Chloride (101-112) mmol/L Chloride (98-107) mmol/L Carbon Dioxide (21-32) mmol/L POC Total CO2 (24-31) mmol/L Anion Gap (3-11) POC Anion Gap (16-25) mmol/L POC BUN (7-18) mg/dl BUN (7-18) mg/dl Creatinine (0.6-1.2) mg/dl POC Creatinine (0.6-1.3) mg/dl Est Cr Clr Drug Dosing ml/min Est GFR ( Amer) Est GFR (Non-Af Amer) BUN/Creatinine Ratio (10-20) Glucose (70-99) mg/dl POC Glucose (other) (70-99) mg/dl Lactate (0.4-2.0) mmol/L Calcium (8.5-10.1) mg/dl POC Ioniz Calcium Michele (1.12-1.32) mmol/l Magnesium (1.8-2.4) mg/dl Total Bilirubin (0.2-1) mg/dl AST (15-37) U/L ALT (12-78) U/L Alkaline Phosphatase (45-117) U/L Total Protein (6.4-8.2) gm/dl Albumin (3.4-5.0) gm/dl Globulin (2.5-4.0) gm/dl Albumin/Globulin Ratio (0.9-2) Urine Color Yellow Urine Appearance Clear (Clear) Urine pH 5.5 (4.5-7.5) Ur Specific [place] 1.012 (1.000-1.030) Urine Protein Negative (Negative) Urine Glucose (UA) Negative (Negative) Urine Ketones Negative (Negative) Urine Blood Negative (Negative) Urine Nitrite Negative (Negative) Urine Bilirubin Negative (Negative) Urine Urobilinogen Negative (Negative) Ur Leukocyte Esterase Negative (Negative) COVID-19 Eval Order CovFluRsv at [facility] SARS-CoV-2 (PCR) NEGATIVE (Negative) Influenza Type A (PCR) Negative (Neg) Influenza Type B (PCR) Negative (Neg) RSV (RT-PCR) Negative (Neg) 02/14/21 02/14/21 02/14/21 Range/Units 10:38 10:38 10:38 WBC 10.68 (4.8-10.8) K/uL RBC 3.66 L (4.2-5.4) M/uL Hgb 11.5 L (12.0-16.0) g/dL POC Hgb (12.0-16.0) g/dl Hct 35.7 L (37-47) % POC Hct (37-47) % MCV 97.5 (80-100) fL MCH 31.4 (25-34) pg MCHC 32.2 (32-36) g/dL RDW Std Deviation 51.9 H (36.4-46.3) fL RDW Coeff of Jame 14.4 (11.5-14.5) % Plt Count 230 (130-400) K/uL MPV 9.9 (7.4-10.4) fL Immature Gran % (Auto) 0.8 % Neut % (Auto) 75.5 % Lymph % (Auto) 14.1 % [place] % (Auto) 8.9 % Eos % (Auto) 0.6 % Baso % (Auto) 0.1 % Neut # (Auto) 8.06 H (1.4-6.5) K/uL Lymph # (Auto) 1.51 (1.2-3.4) K/uL [place] # (Auto) 0.95 H (0.11-0.59) K/uL Eos # (Auto) 0.06 (0-0.5) K/uL Baso # (Auto) 0.01 (0-0.2) K/uL Immature Gran # (Auto) 0.09 H (0.00-0.02) K/uL PT 35.3 H (9.0-12.0) Seconds INR 3.9 H (0.9-1.1) APTT 42.1 H (21.0-31.0) Seconds PTT Ratio 1.6 POC Sodium (135-144) mmol/L Sodium 141 (136-145) mmol/L POC Potassium (3.3-5.0) mmol/L Potassium 4.5 (3.5-5.1) mmol/L POC Chloride (101-112) mmol/L Chloride 111 H (98-107) mmol/L Carbon Dioxide 27 (21-32) mmol/L POC Total CO2 (24-31) mmol/L Anion Gap 3.0 (3-11) POC Anion Gap (16-25) mmol/L POC BUN (7-18) mg/dl BUN 55 H (7-18) mg/dl Creatinine 1.49 H (0.6-1.2) mg/dl POC Creatinine (0.6-1.3) mg/dl Est Cr Clr Drug Dosing 34.6 ml/min Est GFR ( Amer) 38.9 Est GFR (Non-Af Amer) 33.5 BUN/Creatinine Ratio 36.7 H (10-20) Glucose 94 (70-99) mg/dl POC Glucose (other) (70-99) mg/dl Lactate (0.4-2.0) mmol/L Calcium 8.4 L (8.5-10.1) mg/dl POC Ioniz Calcium Michele (1.12-1.32) mmol/l Magnesium 2.8 H (1.8-2.4) mg/dl Total Bilirubin 0.5 (0.2-1) mg/dl AST 15 (15-37) U/L ALT 20 (12-78) U/L Alkaline Phosphatase 96 (45-117) U/L Total Protein 6.8 (6.4-8.2) gm/dl Albumin 3.2 L (3.4-5.0) gm/dl Globulin 3.6 (2.5-4.0) gm/dl Albumin/Globulin Ratio 0.9 (0.9-2) Urine Color Urine Appearance (Clear) Urine pH (4.5-7.5) Ur Specific [place] (1.000-1.030) Urine Protein (Negative) Urine Glucose (UA) (Negative) Urine Ketones (Negative) Urine Blood (Negative) Urine Nitrite (Negative) Urine Bilirubin (Negative) Urine Urobilinogen (Negative) Ur Leukocyte Esterase (Negative) COVID-19 Eval Order SARS-CoV-2 (PCR) (Negative) Influenza Type A (PCR) (Neg) Influenza Type B (PCR) (Neg) RSV (RT-PCR) (Neg) 02/14/21 02/14/21 Range/Units 10:38 10:45 WBC (4.8-10.8) K/uL RBC (4.2-5.4) M/uL Hgb (12.0-16.0) g/dL POC Hgb 12.2 (12.0-16.0) g/dl Hct (37-47) % POC Hct 36 L (37-47) % MCV (80-100) fL MCH (25-34) pg MCHC (32-36) g/dL RDW Std Deviation (36.4-46.3) fL RDW Coeff of Jame (11.5-14.5) % Plt Count (130-400) K/uL MPV (7.4-10.4) fL Immature Gran % (Auto) % Neut % (Auto) % Lymph % (Auto) % [place] % (Auto) % Eos % (Auto) % Baso % (Auto) % Neut # (Auto) (1.4-6.5) K/uL Lymph # (Auto) (1.2-3.4) K/uL [place] # (Auto) (0.11-0.59) K/uL Eos # (Auto) (0-0.5) K/uL Baso # (Auto) (0-0.2) K/uL Immature Gran # (Auto) (0.00-0.02) K/uL PT (9.0-12.0) Seconds INR (0.9-1.1) APTT (21.0-31.0) Seconds PTT Ratio POC Sodium 140 (135-144) mmol/L Sodium (136-145) mmol/L POC Potassium 4.5 (3.3-5.0) mmol/L Potassium (3.5-5.1) mmol/L POC Chloride 107 (101-112) mmol/L Chloride (98-107) mmol/L Carbon Dioxide (21-32) mmol/L POC Total CO2 26 (24-31) mmol/L Anion Gap (3-11) POC Anion Gap 13.0 L (16-25) mmol/L POC BUN 49 H (7-18) mg/dl BUN (7-18) mg/dl Creatinine (0.6-1.2) mg/dl POC Creatinine 1.5 H (0.6-1.3) mg/dl Est Cr Clr Drug Dosing ml/min Est GFR ( Amer) Est GFR (Non-Af Amer) BUN/Creatinine Ratio (10-20) Glucose (70-99) mg/dl POC Glucose (other) 93 (70-99) mg/dl Lactate 1.6 (0.4-2.0) mmol/L Calcium (8.5-10.1) mg/dl POC Ioniz Calcium Michele 1.18 (1.12-1.32) mmol/l Magnesium (1.8-2.4) mg/dl Total Bilirubin (0.2-1) mg/dl AST (15-37) U/L ALT (12-78) U/L Alkaline Phosphatase (45-117) U/L Total Protein (6.4-8.2) gm/dl Albumin (3.4-5.0) gm/dl Globulin (2.5-4.0) gm/dl Albumin/Globulin Ratio (0.9-2) Urine Color Urine Appearance (Clear) Urine pH (4.5-7.5) Ur Specific [place] (1.000-1.030) Urine Protein (Negative) Urine Glucose (UA) (Negative) Urine Ketones (Negative) Urine Blood (Negative) Urine Nitrite (Negative) Urine Bilirubin (Negative) Urine Urobilinogen (Negative) Ur Leukocyte Esterase (Negative) COVID-19 Eval Order SARS-CoV-2 (PCR) (Negative) Influenza Type A (PCR) (Neg) Influenza Type B (PCR) (Neg) RSV (RT-PCR) (Neg) Administered Medications Levalbuterol HCl (Levalbuterol 1.25mg/0.5ml Neb) 1.25 mg NEB Q6R MAGDALENE Stop: 03/16/21 14:39 Last Admin: 02/14/21 15:16 Dose: 1.25 mg Documented by: [id number] Discontinued Medications Azithromycin (Azithromycin 250 Mg Tab) 500 mg PO NOW ONE Stop: 02/14/21 12:23 Last Admin: 02/14/21 13:49 Dose: 500 mg Documented by: [id number] Sodium Chloride (Nss) 500 mls @ 999 mls/hr IV .Q31M ONE Stop: 02/14/21 10:36 Last Infusion: 02/14/21 11:30 Dose: 0 mls/hr Documented by: [id number] Admin: 02/14/21 10:25 Dose: 999 mls/hr Documented by: [id number] Ceftriaxone Sodium (Rocephin) 1,000 mg in 50 mls @ 100 mls/hr IV NOW STA Stop: 02/14/21 10:35 Last Infusion: 02/14/21 12:17 Dose: 0 mls/hr Documented by: [id number] Admin: 02/14/21 11:47 Dose: 100 mls/hr Documented by: [id number] Ioversol (Optiray 300 100ml) 81 ml IV ONCE ONE Stop: 02/14/21 11:31 Last Admin: 02/14/21 11:31 Dose: 81 ml Documented by: [id number] Imaging Data Radiologist's Impression: Abdomen/Pelvis CT 02/14/21 10:06 CT SCAN OF THE CHEST, ABDOMEN, AND PELVIS WITH IV CONTRAST CLINICAL HISTORY: Trauma. Fall. COMPARISON STUDY: Chest x-ray dated 02/14/2021. Abdominal CT dated 12/31/2018. CT of the lumbar spine dated 10/31/2020. TECHNIQUE: Following the IV administration of 81 of Optiray 300, CT scan of the chest, abdomen, and pelvis was performed from the thoracic inlet to the proximal femora. Images are reviewed in the axial, sagittal, and coronal planes. IV contrast was administered without complication. A dose lowering technique was utilized adhering to the principles of ALARA. FINDINGS: CHEST: Thyroid: Imaged portions of the thyroid gland are normal in size and attenuation. Thoracic aorta: There is atherosclerotic calcification of the thoracic aorta, which is normal in caliber and demonstrates standard 3-vessel arch anatomy. No dissection is seen. Pulmonary vasculature: The pulmonary trunk is normal in caliber. There are no filling defects identified in the central pulmonary vessels to indicate pul monary embolus. Note that this examination was not protocoled for evaluation of the pulmonary arteries. Heart: The heart is mildly enlarged and without pericardial effusion. Lungs and pleural spaces: The trachea and central airways are clear. No pn eumothorax is identified. There is dense airspace consolidation seen throughout the lower lobes, right greater than left. Trace pleural effusions are noted. Mild patchy consolidation is seen in the right upper and middle lobes. Mediastinum: There is no mediastinal hematoma or lymphadenopathy. Varsha: Clear. Axillae: There is no axillary lymphadenopathy. Bony thorax: The skeletal structures are osteopenic. The bony thorax appears intact. Mild spondylotic change is seen throughout the thoracic spine. Advanced arthritic change is noted in the shoulders. No lytic or blastic lesions are identified. ABDOMEN AND PELVIS: Liver: The contrast-enhanced liver is normal in size, contour, and attenuation. There is no intra- or extrahepatic biliary ductal dilatation. The hepatic veins and portal veins are patent. Gallbladder: The gallbladder is mildly distended but otherwise normal in appearance. Spleen: Normal in size and attenuation. Pancreas: Moderately atrophic and grossly unremarkable. Adrenal glands: Unremarkable. Kidneys: The contrast enhanced kidneys demonstrate cortical atrophy and are without hydronephrosis. The kidneys enhance symmetrically. Renal cysts measure up to 2.0 cm. Additional subcentimeter cortical hypodensities also likely represent cysts but are too small for definitive characterization. Abdominal vasculature: There is advanced atherosclerotic calcification and mild ectasia of the abdominal aorta. Stomach and bowel: There is a moderate hiatal hernia. There is rectosigmoid fecal retention and mild to moderate constipation. No bowel obstruction is seen. The appendix is not visualized. Peritoneum: There is no intraperitoneal free air or abdominal ascites. Lymphadenopathy: None. Pelvic viscera: Evaluation of the pelvis is degraded by streak artifact from a left hip arthroplasty. The bladder is distended but otherwise normal in appearan ce. The uterus is surgically absent. A 2.8 cm simple cystic lesion in the right adnexa on image #339 is likely related to the right ovary and unchanged from 12/31/2018. Skeletal structures: Double structures are osteopenic. No lytic or blastic lesions are seen. The lumbosacral spine, bony pelvis, and proximal femora appear intact. There is moderate lumbosacral spondylosis. Advanced arthritic changes noted in the right hip. A left hip arthroplasty is in place. IMPRESSION: 1. There is no acute posttraumatic intrathoracic abnormality. 2. There is no evidence of solid organ injury in the abdomen or pelvis. 3. Cardiomegaly. 4. Multifocal airspace consolidation is seen throughout both lungs, most confluent in the lower lobes. The appearance is typical for pneumonia/aspiration pneumonitis. Clinical correlation will be required and radiographic follow-up to resolution is recommended. 5. Trace pleural effusions. 6. No pneumothorax is seen. 7. There is rectosigmoid fecal retention and mild to moderate constipation. No bowel obstruction is seen. 8. Additional findings as above. ACT 112: Negative or not required by law. Electronically signed by: Lucio Damian M.D. 02/14/2021 12:[address] 02/14/21 10:06 CT SCAN OF THE CERVICAL SPINE CLINICAL HISTORY: Trauma. Fall. COMPARISON STUDY: CT of the cervical spine dated 01/02/2019. TECHNIQUE: CT scan of the cervical spine is performed from the skull base to the upper thoracic spine. Images are reviewed in the axial, sagittal, and coronal planes. IV contrast was not administered for this examination. A dose lowering technique was utilized adhering to the principles of ALARA. FINDINGS: Skeletal structures: The skeletal structures are osteopenic. There is no evidence of fracture or subluxation involving the cervical spine. Vertebral body height and alignment are maintained. Anterior osteophytes are seen throughout. There is straightening of the cervical lordosis. The odontoid process and lateral masses are intact. The atlantoaxial articulation is preserved noting mild productive degenerative change. The spinous processes appear intact. There is mild to moderate multilevel cervical spondylosis. Uncovertebral and facet arthropathy contribute sterile foraminal narrowing at several levels. Intervertebral discs: There is advanced disc space narrowing with endplate sclerosis seen at C3-C4. Moderate disc space narrowing is noted at C4-C5 and C5- C6. Central canal: Posterior disc osteophyte complexes at C3-C4, C4-C5, C5-C6 likely contribute to acquired compromise of the central canal. Soft tissues: The prevertebral and paraspinous soft tissues are within normal limits. There is atherosclerotic calcification of the carotid bulbs. Calvarium: The visualized calvarium at the skull base appears intact. Brain parenchyma: Partially visualized brain parenchyma at the skull base is within normal limits. Mastoid: The visualized right mastoid air cells are clear. Lung apices: Clear as visualized. IMPRESSION: 1. There is no evidence of fracture or subluxation involving the cervical spine. 2. Osteopenia and spondylotic change as above. ACT 112: Negative or not required by law. Electronically signed by: Lucio Damian M.D. 02/14/2021 11:[address] 02/14/21 10:06 CT SCAN OF THE CHEST, ABDOMEN, AND PELVIS WITH IV CONTRAST CLINICAL HISTORY: Trauma. Fall. COMPARISON STUDY: Chest x-ray dated 02/14/2021. Abdominal CT dated 12/31/2018. CT of the lumbar spine dated 10/31/2020. TECHNIQUE: Following the IV administration of 81 of Optiray 300, CT scan of the chest, abdomen, and pelvis was performed from the thoracic inlet to the proximal femora. Images are reviewed in the axial, sagittal, and coronal planes. IV contrast was administered without complication. A dose lowering technique was utilized adhering to the principles of ALARA. FINDINGS: CHEST: Thyroid: Imaged portions of the thyroid gland are normal in size and attenuation. Thoracic aorta: There is atherosclerotic calcification of the thoracic aorta, which is normal in caliber and demonstrates standard 3-vessel arch anatomy. No dissection is seen. Pulmonary vasculature: The pulmonary trunk is normal in caliber. There are no filling defects identified in the central pulmonary vessels to indicate pulmonary embolus. Note that this examination was not protocoled for evaluation of the pulmonary arteries. Heart: The heart is mildly enlarged and without pericardial effusion. Lungs and pleural spaces: The trachea and central airways are clear. No pneumothorax is identified. There is dense airspace consolidation seen throughout the lower lobes, right greater than left. Trace pleural effusions are noted. Mild patchy consolidation is seen in the right upper and middle lobes. Mediastinum: There is no mediastinal hematoma or lymphadenopathy. Varsha: Clear. Axillae: There is no axillary lymphadenopathy. Bony thorax: The skeletal structures are osteopenic. The bony thorax appears intact. Mild spondylotic change is seen throughout the thoracic spine. Advanced arthritic change is noted in the shoulders. No lytic or blastic lesions are identified. ABDOMEN AND PELVIS: Liver: The contrast-enhanced liver is normal in size, contour, and attenuation. There is no intra- or extrahepatic biliary ductal dilatation. The hepatic veins and portal veins are patent. Gallbladder: The gallbladder is mildly distended but otherwise normal in appearance. Spleen: Normal in size and attenuation. Pancreas: Moderately atrophic and grossly unremarkable. Adrenal glands: Unremarkable. Kidneys: The contrast enhanced kidneys demonstrate cortical atrophy and are without hydronephrosis. The kidneys enhance symmetrically. Renal cysts measure up to 2.0 cm. Additional subcentimeter cortical hypodensities also likely represent cysts but are too small for definitive characterization. Abdominal vasculature: There is advanced atherosclerotic calcification and mild ectasia of the abdominal aorta. Stomach and bowel: There is a moderate hiatal hernia. There is rectosigmoid fecal retention and mild to moderate constipation. No bowel obstruction is seen. The appendix is not visualized. Peritoneum: There is no intraperitoneal free air or abdominal ascites. Lymphadenopathy: None. Pelvic viscera: Evaluation of the pelvis is degraded by streak artifact from a left hip arthroplasty. The bladder is distended but otherwise normal in appearance. The uterus is surgically absent. A 2.8 cm simple cystic lesion in the right adnexa on image #339 is likely related to the right ovary and unchanged from 12/31/2018. Skeletal structures: Double structures are osteopenic. No lytic or blastic lesions are seen. The lumbosacral spine, bony pelvis, and proximal femora appear intact. There is moderate lumbosacral spondylosis. Advanced arthritic changes noted in the right hip. A left hip arthroplasty is in place. IMPRESSION: 1. There is no acute posttraumatic intrathoracic abnormality. 2. There is no evidence of solid organ injury in the abdomen or pelvis. 3. Cardiomegaly. 4. Multifocal airspace consolidation is seen throughout both lungs, most confluent in the lower lobes. The appearance is typical for pneumonia/aspiration pneumonitis. Clinical correlation will be required and radiographic follow-up to resolution is recommended. 5. Trace pleural effusions. 6. No pneumothorax is seen. 7. There is rectosigmoid fecal retention and mild to moderate constipation. No bowel obstruction is seen. 8. Additional findings as above. ACT 112: Negative or not required by law. Electronically signed by: Lucio Damian M.D. 02/14/2021 12:03 PM Chest X-Ray 02/14/21 10:06 XR chest 1V portable HISTORY: 76 years-old Female SEPSIS acute sepsis COMPARISON: Chest radiograph 01/04/2021 TECHNIQUE: Portable AP view the chest FINDINGS: Cardiac silhouette is enlarged. Right greater left bibasilar and midlung airspace opacities. Mild pulmonary vascular congestion. No pneumothorax. Probable trace left pleural effusion. Degenerative changes of the shoulders and spine. IMPRESSION: 1. Right greater than left bibasilar and midlung airspace opacities suggestive of pneumonia. 2. Cardiomegaly with pulmonary vascular congestion. 3. Trace left pleural effusion suggested. ACT 112: Negative or not required by law. The above report was generated using voice recognition software. It may contain grammatical, syntax or spelling errors. Electronically signed by: Ruben Gilbert M.D. 02/14/2021 11:[address] 02/14/21 10:06 CT OF THE HEAD WITHOUT CONTRAST CLINICAL HISTORY: Fall. COMPARISON STUDY: Head CT in January 05, 2021. CT DOSE: 2889.50 mGy.cm TECHNIQUE: Helical axial images of the head were obtained without IV contrast. Automated exposure control was utilized for the study. A dose lowering technique was utilized adhering to the principles of ALARA. FINDINGS: No acute intracranial hemorrhage, midline shift or mass effect is p resent. The ventricular system is stable. The basal cisterns are patent. No extra-axial collections are present. There are no findings to suggest acute dural sinus thrombosis or acute territorial infarct. No significant calvarial abnormalities are present. There are is moderate resulting of the left maxillary sinus. There are secretions within both maxillary sinuses. IMPRESSION: 1. No acute intracranial findings. 2. No calvarial fracture. 3. Mild increase in findings suggestive of bilateral maxillary sinusitis. ACT 112: Negative or not required by law. Electronically signed by: Yefri Carrasco M.D. 02/14/2021 11:47 AM Discharge Plan Visit Data Chief Complaint: Illness ED Provider: Austin Cintron Discharge Problem: Sepsis, Pneumonia, Hypoxia Patient Disposition: Admitted As Inpatient Discharge Instructions Interventions: ED Discharge Assessment Last Done: 02/14/21 13:45 Discharge Problem: Sepsis Qualifiers: Sepsis type: sepsis due to unspecified organism Sepsis acute organ dysfunction status: unspecified Qualified Code(s): A41.9 - Sepsis, unspecified organism Pneumonia Qualifiers: Pneumonia type: due to unspecified organism Laterality: bilateral Lung location: lower lobe of lung Qualified Code(s): J18.9 - Pneumonia, unspecified organism
[2021-02-14 10:41] LABS: Appearance Urine Clear (Clear); Bilirubin Urine Negative (Negative); Blood Urine Negative (Negative); Color Urine Yellow; Glucose Urine UA Negative (Negative); Ketones Urine Negative (Negative); Leukocyte Esterase Urine Negative (Negative); Nitrite Urine Negative (Negative); Protein Urine Negative (Negative); Specific Gravity Urine 1.012 (1.000-1.030); Urobilinogen Urine Negative (Negative); pH Urine 5.5 (4.5-7.5)
[2021-02-14 10:53] LABS: Basophils # (auto) 0.01 K/uL (0-0.2); Basophils % (auto) 0.1 %; Eosinophils # (auto) 0.06 K/uL (0-0.5); Eosinophils % (auto) 0.6 %; Hematocrit (blood only) 35.7 % (37-47); Hemoglobin 11.5 g/dL (12.0-16.0); Immature Granulocytes # (auto) 0.09 K/uL (0.00-0.02); Immature Granulocytes % (auto) 0.8 %; Lymphocytes # (auto) 1.51 K/uL (1.2-3.4); Lymphocytes % (auto) 14.1 %; Mean Corpuscular Hemoglobin 31.4 pg (25-34); Mean Corpuscular Hgb Conc 32.2 g/dL (32-36); Mean Corpuscular Volume 97.5 fL (80-100); Mean Platelet Volume 9.9 fL (7.4-10.4); Monocytes # (auto) 0.95 K/uL (0.11-0.59); Monocytes % (auto) 8.9 %; Neutrophils # (auto) 8.06 K/uL (1.4-6.5); Neutrophils % (auto) 75.5 %; Platelet Count 230 K/uL (130-400); RDW Coefficient of Variation 14.4 % (11.5-14.5); RDW Standard Deviation 51.9 fL (36.4-46.3); Red Blood Count 3.66 M/uL (4.2-5.4); White Blood Count 10.68 K/uL (4.8-10.8)
[2021-02-14 10:57] LABS: iSTAT Creatinine 1.5 mg/dl (0.6-1.3); iSTAT Hemoglobin 12.2 g/dl (12.0-16.0); iSTAT Ionized Calcium 1.18 mmol/l (1.12-1.32); iSTAT Potassium 4.5 mmol/L (3.3-5.0)
--- NOTE | 2021-02-14 11:02 | XRay Report ---
XR chest 1V portable HISTORY: 76 years-old Female SEPSIS acute sepsis COMPARISON: Chest radiograph 01/04/2021 TECHNIQUE: Portable AP view the chest FINDINGS: Cardiac silhouette is enlarged. Right greater left bibasilar and midlung airspace opacities. Mild pul monary vascular congestion. No pneumothorax. Probable trace left pleural effusion. Degenerative donnelly es of the shoulders and spine. IMPRESSION: 1. Right greater than left bibasilar and midlung airspace opacities suggestive of pneumonia. 2. Cardiomegaly with pulmonary vascular congestion. 3. Trace left pleural effusion suggested. ACT 112: Negative or not required by law. The above report was generated using voice recognition software. It may contain grammatical, syntax o r spelling errors. Electronically signed by: Ruben Gilbert M.D. 02/14/2021 11:01 AM
[2021-02-14 11:11] LABS: Albumin Level 3.2 gm/dl (3.4-5.0); BUN Creatinine Ratio 36.7 (10-20); Calcium 8.4 mg/dl (8.5-10.1); Creatinine Clr Calc Pharmacy 34.6 ml/min; Est GFR (African American) 38.9; Est GFR (Non-African American) 33.5; Potassium 4.5 mmol/L (3.5-5.1)
[2021-02-14 11:12] LABS: INR 3.9 (0.9-1.1); Partial Thromboplastin Ratio 1.6; Partial Thromboplastin Time 42.1 Seconds (21.0-31.0); Prothrombin Time 35.3 Seconds (9.0-12.0)
[2021-02-14 11:14] LABS: Albumin Globulin Ratio 0.9 (0.9-2); Bilirubin,Total 0.5 mg/dl (0.2-1); Globulin 3.6 gm/dl (2.5-4.0); Magnesium 2.8 mg/dl (1.8-2.4); Total Protein 6.8 gm/dl (6.4-8.2)
[2021-02-14 11:21] LABS: Influenza A virus by PCR Negative (Neg); Influenza B virus by PCR Negative (Neg); RSV by PCR Negative (Neg); SARS CoV2 RNA(COVID-19) InHosp NEGATIVE (Negative)
[2021-02-14] MEDS ORDERED: OPTIRAY 300 100mL IV ONE (11:30)
--- NOTE | 2021-02-14 11:48 | CT Scan Report ---
CT OF THE HEAD WITHOUT CONTRAST CLINICAL HISTORY: Fall. COMPARISON STUDY: Head CT in January 05, 2021. CT DOSE: 2889.50 mGy.cm TECHNIQUE: Helical axial images of the head were obtained without IV contrast. Automated exposure con trol was utilized for the study. A dose lowering technique was utilized adhering to the principles o f ALARA. FINDINGS: No acute intracranial hemorrhage, midline shift or mass effect is present. The ventricular system is stable. The basal cisterns are patent. No extra-axial collections are present. There are no findings to suggest acute dural sinus thrombosis or acute territorial infarct. No significant calvar ial abnormalities are present. There are is moderate resulting of the left maxillary sinus. There are secretions within both maxillary sinuses. IMPRESSION: 1. No acute intracranial findings. 2. No calvarial fracture. 3. Mild increase in findings suggestive of bilateral maxillary sinusitis. ACT 112: Negative or not required by law. Electronically signed by: Yefri Carrasco M.D. 02/14/2021 11:47 AM
--- NOTE | 2021-02-14 11:52 | CT Scan Report ---
CT SCAN OF THE CERVICAL SPINE CLINICAL HISTORY: Trauma. Fall. COMPARISON STUDY: CT of the cervical spine dated 01/02/2019. TECHNIQUE: CT scan of the cervical spine is performed from the skull base to the upper thoracic spine . Images are reviewed in the axial, sagittal, and coronal planes. IV contrast was not administered fo r this examination. A dose lowering technique was utilized adhering to the principles of ALARA. FINDINGS: Skeletal structures: The skeletal structures are osteopenic. There is no evidence of fracture or subl uxation involving the cervical spine. Vertebral body height and alignment are maintained. Anterior os teophytes are seen throughout. There is straightening of the cervical lordosis. The odontoid process and lateral masses are intact. The atlantoaxial articulation is preserved noting mild productive dege nerative change. The spinous processes appear intact. There is mild to moderate multilevel cervical s pondylosis. Uncovertebral and facet arthropathy contribute sterile foraminal narrowing at several lev els. Intervertebral discs: There is advanced disc space narrowing with endplate sclerosis seen at C3-C4. M oderate disc space narrowing is noted at C4-C5 and C5-C6. Central canal: Posterior disc osteophyte complexes at C3-C4, C4-C5, C5-C6 likely contribute to acquir ed compromise of the central canal. Soft tissues: The prevertebral and paraspinous soft tissues are within normal limits. There is athero sclerotic calcification of the carotid bulbs. Calvarium: The visualized calvarium at the skull base appears intact. Brain parenchyma: Partially visualized brain parenchyma at the skull base is within normal limits. Mastoid: The visualized right mastoid air cells are clear. Lung apices: Clear as visualized. IMPRESSION: 1. There is no evidence of fracture or subluxation involving the cervical spine. 2. Osteopenia and spondylotic change as above. ACT 112: Negative or not required by law. Electronically signed by: Lucio Damian M.D. 02/14/2021 11:50 AM
--- NOTE | 2021-02-14 12:05 | CT Scan Report ---
CT SCAN OF THE CHEST, ABDOMEN, AND PELVIS WITH IV CONTRAST CLINICAL HISTORY: Trauma. Fall. COMPARISON STUDY: Chest x-ray dated 02/14/2021. Abdominal CT dated 12/31/2018. CT of the lumbar spine d ated 10/31/2020. TECHNIQUE: Following the IV administration of 81 of Optiray 300, CT scan of the chest, abdomen, and p wilda was performed from the thoracic inlet to the proximal femora. Images are reviewed in the axial, sagittal, and coronal planes. IV contrast was administered without complication. A dose lowering te chnique was utilized adhering to the principles of ALARA. FINDINGS: CHEST: Thyroid: Imaged portions of the thyroid gland are normal in size and attenuation. Thoracic aorta: There is atherosclerotic calcification of the thoracic aorta, which is normal in dariana camila and demonstrates standard 3-vessel arch anatomy. No dissection is seen. Pulmonary vasculature: The pulmonary trunk is normal in caliber. There are no filling defects identif ied in the central pulmonary vessels to indicate pulmonary embolus. Note that this examination was no t protocoled for evaluation of the pulmonary arteries. Heart: The heart is mildly enlarged and without pericardial effusion. Lungs and pleural spaces: The trachea and central airways are clear. No pneumothorax is identified. T here is dense airspace consolidation seen throughout the lower lobes, right greater than left. Trace pleural effusions are noted. Mild patchy consolidation is seen in the right upper and middle lobes. Mediastinum: There is no mediastinal hematoma or lymphadenopathy. Varsha: Clear. Axillae: There is no axillary lymphadenopathy. Bony thorax: The skeletal structures are osteopenic. The bony thorax appears intact. Mild spondylotic change is seen throughout the thoracic spine. Advanced arthritic change is noted in the shoulders. N o lytic or blastic lesions are identified. ABDOMEN AND PELVIS: Liver: The contrast-enhanced liver is normal in size, contour, and attenuation. There is no intra- or extrahepatic biliary ductal dilatation. The hepatic veins and portal veins are patent. Gallbladder: The gallbladder is mildly distended but otherwise normal in appearance. Spleen: Normal in size and attenuation. Pancreas: Moderately atrophic and grossly unremarkable. Adrenal glands: Unremarkable. Kidneys: The contrast enhanced kidneys demonstrate cortical atrophy and are without hydronephrosis. T he kidneys enhance symmetrically. Renal cysts measure up to 2.0 cm. Additional subcentimeter cortical hypodensities also likely represent cysts but are too small for definitive characterization. Abdominal vasculature: There is advanced atherosclerotic calcification and mild ectasia of the abdomi nal aorta. Stomach and bowel: There is a moderate hiatal hernia. There is rectosigmoid fecal retention and mild to moderate constipation. No bowel obstruction is seen. The appendix is not visualized. Peritoneum: There is no intraperitoneal free air or abdominal ascites. Lymphadenopathy: None. Pelvic viscera: Evaluation of the pelvis is degraded by streak artifact from a left hip arthroplasty. The bladder is distended but otherwise normal in appearance. The uterus is surgically absent. A 2.8 cm simple cystic lesion in the right adnexa on image #339 is likely related to the right ovary and un changed from 12/31/2018. Skeletal structures: Double structures are osteopenic. No lytic or blastic lesions are seen. The lumb osacral spine, bony pelvis, and proximal femora appear intact. There is moderate lumbosacral spondylo sis. Advanced arthritic changes noted in the right hip. A left hip arthroplasty is in place. IMPRESSION: 1. There is no acute posttraumatic intrathoracic abnormality. 2. There is no evidence of solid organ injury in the abdomen or pelvis. 3. Cardiomegaly. 4. Multifocal airspace consolidation is seen throughout both lungs, most confluent in the lower lobes . The appearance is typical for pneumonia/aspiration pneumonitis. Clinical correlation will be requir ed and radiographic follow-up to resolution is recommended. 5. Trace pleural effusions. 6. No pneumothorax is seen. 7. There is rectosigmoid fecal retention and mild to moderate constipation. No bowel obstruction is s een. 8. Additional findings as above. ACT 112: Negative or not required by law. Electronically signed by: Lucio Damian M.D. 02/14/2021 12:03 PM
[2021-02-14] MEDS ORDERED: AZITHROMYCIN 250 MG TAB PO ONE (12:22)
--- NOTE | 2021-02-14 12:44 | History & Physical Report ---
Date of Service February 14, 2021 Assessment & Plan (1) Pneumonia: - Admit to med surg with tele - Ceftriaxone and azithromycin given x 1 in the ER, continue abx with IV zosyn -CXR reviewed, concern for bilateral pneumonia, small pleural effusions, diminished breath sounds at this location - CT chest showing patchy infiltrate in the right middle lobe and right lower lobe and in left. - concern for possible aspiration pneumonia vs aspiration pneumonitis in the setting of her dementia, will get speech consult, possible needs for video swallow -Pulmonary toilet with flutter, incentive spirometry, Mucinex, Tylenol, sputum culture if produces expectorant -Slightly hypoxic with O2 sats in the high 80s on room air, improved once on 2L via NC to 96%, does not wear supplemental o2 at baseline -Covid negative -Lactate 1.6, no procal obtained -Follow Blood cultures (2) Chronic diastolic HF (heart failure), NYHA class 2: - History of such, give 1L more of NSS secondary to pneumonia and vomiting, then stop if can tolerate p.o. intake - BP stable - Continue Coreg, amlodipine, losartan, aspirin, and holding Lasix - Follows with Venkatesh Gil as an outpatient (3) Hypertension: -Continue antihypertensives as above (4) GERD (gastroesophageal reflux disease): -Continue Protonix 40 mg daily (5) Pulmonary embolism: -History of such in 2013, home regimen Coumadin with 4 mg MWF and 2 mg on all other days. -INR 3.9 -Hold Coumadin tonight, monitor closely with being on antibiotic (6) CKD (chronic kidney disease), stage III: -Creatinine currently 1.49, appears her baseline is closer to 1, fluids as above, continuing MARIALUISA and ARB, holding Lasix -Follow a.m. BMP (7) PAF (paroxysmal atrial fibrillation): - Sinus, rate controlled, continue meds as above - Coumadin as above (8) Mild dementia: -Stable, typically knows name, family members, location and sometimes the date. Her daughter and son take turns taking care of her in her home, involves staying overnight, management of medications, assisting with taking to appointments, etc. 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 (10) Anemia: - Hgb 11.5, pt daughter reports seeing small amounts coffee ground emesis in vomitus, Already on PPI po daily - Coumadin as above - Guiac stools (11) DVT prophylaxis: - teds, scds CODE: Full Dispo: From home, likely to remain in the hospital x 1-2 days History of Present Illness Primary Care Provider: Junie Jeffers MD This is a 76-year-old female with PMHx of chronic diastolic heart failure with an EF of 55%, Takotsubo cardiomyopathy, pulmonary hypertension, HTN, HLD, History of PE, anemia, dementia who presents to the ER today with increased weakness, vomiting x1, fever overnight and increased shortness of breath. Typically does not wear any supplemental O2 at baseline, currently requiring 2 L with sats at 96%. History is obtained by her daughter, due to the patient's dementia. Daughter reports that she yesterday developed worsening shortness of breath which was apparent with exertion and walking within the house, this morning it significantly worsened where she was extremely short of breath within 10 to 15 feet distance. She also had significant shaking and chills this morning and vomited x2 at home. Patient also has complaints of lower abdominal pain currently. She denies diarrhea or constipation. Patient's appetite had been good up until 2 days ago when it seemed that her appetite significantly decreased. She did not take any of her morning medications today due to vomiting. Daughter notes some spots in bilious vomitus that were coffee-ground however denies complete coffee-ground emesis or large quantities of such. Denies any bright red blood or streaking. EMS was called and discovered she was febrile. Once in the ER patient is found to have bilateral lower lobe pneumonia with a small left pleural effusion. Allergies Allergy/AdvReac Type Severity Reaction Status Date / Time codeine Allergy Severe SHORTNESS Verified 02/14/21 11:25 OF BREATH morphine AdvReac Intermediate dizzy/nause Verified 02/14/21 11:25 a onion AdvReac Mild Headache Verified 02/14/21 11:25 caffeine AdvReac Anxiety Verified 02/14/21 11:25 Home Medications Medication Instructions Recorded Confirmed Type aspirin 81 mg PO .MOWE@QAM 06/17/18 02/14/21 History atorvastatin 40 mg PO HS 06/17/18 02/14/21 History carvedilol 25 mg PO BID 06/17/18 02/14/21 History cyanocobalamin (vitamin B-12) 1,000 mcg PO QAM 06/17/18 02/14/21 History pantoprazole 40 mg PO DAILYBB 06/17/18 02/14/21 History sennosides-docusate sodium [Senna 1 tab PO HS 06/17/18 02/14/21 History Plus] Vitron-C 1 tab PO QAM 02/28/20 02/14/21 History cholecalciferol (vitamin D3) 50 mcg PO QDL 02/28/20 02/14/21 History [Vitamin D3] nystatin 1 applic TOPICAL BID PRN 03/08/20 02/14/21 History docusate sodium 100 mg PO HS 10/31/20 02/14/21 History polyethylene glycol 3350 [Miralax] 17 g PO DAILY PRN 10/31/20 02/14/21 History gabapentin See Rx Instructions .ROUTE .COMPLEX 01/04/21 02/14/21 History hydrocodone-acetaminophen 1 tab PO BID PRN 01/04/21 02/14/21 History sertraline 50 mg PO QAM 01/04/21 02/14/21 History spironolactone 12.5 mg PO .MOWEFR@QA 01/04/21 02/14/21 History warfarin See Rx Instructions .ROUTE .COMPLEX 01/04/21 02/14/21 History amlodipine 10 mg PO HS #30 tab 01/05/21 02/14/21 Rx losartan 25 mg PO QAM #30 tab 01/05/21 02/14/21 Rx furosemide 20 mg PO .SUTUTHSA@QAM 02/14/21 02/14/21 History furosemide 40 mg PO .MOWEFR@QA 02/14/21 02/14/21 History isosorbide mononitrate 60 mg PO QAM 02/14/21 02/14/21 History Past Med/Surg History Medical History Anxiety Chronic anticoagulation CKD (chronic kidney disease), stage III GERD (gastroesophageal reflux disease) History of left hip replacement Hypertension Mild dementia Pulmonary embolism Takotsubo cardiomyopathy Surgical History History of adenoidectomy History of appendectomy History of cardiac catheterization History of hysterectomy History of lumpectomy History of tonsillectomy History of tooth extraction Family History Brother Myocardial infarction Mother Uterine cancer Social History Smoking Status: Never smoker Second Hand Exposure: No; Hx Alcohol Use: No Hx Substance Use: No Preferred Language: Serbian Communication Ability: Impaired Beef Trimmer Required: No Beliefs That Will Affect Care: None marital status: Current Living Situation: Family Current Living Situation Comment: Dtr lives with her Feels Safe at Home: Yes Assistive Devices: Denture - Upper and Denture - Lower Review of Systems Review of Systems: Constitutional: + fever and chills, no sweats Eyes: No diplopia, no worsening or blurred vision ENT: normal hearing, no trouble swallowing Respiratory: No cough, sputum, +dyspnea on exertion Cardiovascular: No chest pain, tightness or palpitations Abdomen: +pain, +nausea, +vomiting, no diarrhea or constipation Musculoskeletal: No joint pain, calf pain, swelling Neurologic: + generalized weakness, no numbness/tingling, uses walker for ambulation Psychiatric: hx of anxiety and depression on medication Skin: No rash or itch, bruising from coumadin Physical Exam Physical Exam: General: awake, alert, no apparent distress, drifts off to sleep easily Head: Normocephalic, atraumatic ENT: PERRL, EOMI, no pharyngeal exudate, mucous membranes moist Chest: on 2 L via NC, + rales at bases, diminished breath sounds, absent sounds at left base Cardiac: Regular rate and rhythm, few extra beats, soft murmur grade I/, no JVD, normal peripheral pulses, good capillary refill Abdominal: NABS x 4 quadrants, soft, nondistended, nontender to palpation, no rebound or guarding Extremities: + multiple areas of ecchymosis over extremities, otherwise normal inspection, no peripheral edema or erythema, calfs nontender to palpation Psych: Normal mood and affect Neuro: Awakens to verbal stimuli, knows she is in a hospital, no oriented to date, year or president, unable to tell me HPI. no gross motor deficits, speech is clear, no peripheral sensory deficits Results & Data Results & Data ([facility]) Vital Signs (Past 12 Hours) Vital Signs Temp Pulse Resp BP Pulse Ox 02/14/21 11:00 63 21 94 02/14/21 10:51 94 02/14/21 10:45 75 94 02/14/21 10:33 95 02/14/21 10:30 66 23 95 02/14/21 10:15 21 95 02/14/21 10:00 20 96 02/14/21 09:50 94 02/14/21 09:45 24 93 02/14/21 09:39 37.7 C H 66 22 144/54 H 85 L 02/14/21 09:34 20 90 02/14/21 09:31 78 15 144/54 H 90 Laboratory Results Abnormal lab results 02/14/21 02/14/21 02/14/21 Range/Units 10:38 10:38 10:38 RBC 3.66 L (4.2-5.4) M/uL Hgb 11.5 L (12.0-16.0) g/dL Hct 35.7 L (37-47) % POC Hct (37-47) % RDW Std Deviation 51.9 H (36.4-46.3) fL Neut # (Auto) 8.06 H (1.4-6.5) K/uL [place] # (Auto) 0.95 H (0.11-0.59) K/uL Immature Gran # (Auto) 0.09 H (0.00-0.02) K/uL PT 35.3 H (9.0-12.0) Seconds INR 3.9 H (0.9-1.1) APTT 42.1 H (21.0-31.0) Seconds Chloride 111 H (98-107) mmol/L POC Anion Gap (16-25) mmol/L POC BUN (7-18) mg/dl BUN 55 H (7-18) mg/dl Creatinine 1.49 H (0.6-1.2) mg/dl POC Creatinine (0.6-1.3) mg/dl BUN/Creatinine Ratio 36.7 H (10-20) Calcium 8.4 L (8.5-10.1) mg/dl Magnesium 2.8 H (1.8-2.4) mg/dl Albumin 3.2 L (3.4-5.0) gm/dl 02/14/21 Range/Units 10:45 RBC (4.2-5.4) M/uL Hgb (12.0-16.0) g/dL Hct (37-47) % POC Hct 36 L (37-47) % RDW Std Deviation (36.4-46.3) fL Neut # (Auto) (1.4-6.5) K/uL [place] # (Auto) (0.11-0.59) K/uL Immature Gran # (Auto) (0.00-0.02) K/uL PT (9.0-12.0) Seconds INR (0.9-1.1) APTT (21.0-31.0) Seconds Chloride (98-107) mmol/L POC Anion Gap 13.0 L (16-25) mmol/L POC BUN 49 H (7-18) mg/dl BUN (7-18) mg/dl Creatinine (0.6-1.2) mg/dl POC Creatinine 1.5 H (0.6-1.3) mg/dl BUN/Creatinine Ratio (10-20) Calcium (8.5-10.1) mg/dl Magnesium (1.8-2.4) mg/dl Albumin (3.4-5.0) gm/dl Diagnostic Findings Abdomen/Pelvis CT 02/14/21 10:06 CT SCAN OF THE CHEST, ABDOMEN, AND PELVIS WITH IV CONTRAST CLINICAL HISTORY: Trauma. Fall. COMPARISON STUDY: Chest x-ray dated 02/14/2021. Abdominal CT dated 12/31/2018. CT of the lumbar spine dated 10/31/2020. TECHNIQUE: Following the IV administration of 81 of Optiray 300, CT scan of the chest, abdomen, and pelvis was performed from the thoracic inlet to the proximal femora. Images are reviewed in the axial, sagittal, and coronal planes. IV contrast was administered without complication. A dose lowering technique was utilized adhering to the principles of ALARA. FINDINGS: CHEST: Thyroid: Imaged portions of the thyroid gland are normal in size and attenuation. Thoracic aorta: There is atherosclerotic calcification of the thoracic aorta, which is normal in caliber and demonstrates standard 3-vessel arch anatomy. No dissection is seen. Pulmonary vasculature: The pulmonary trunk is normal in caliber. There are no filling defects identified in the central pulmonary vessels to indicate pulmonary embolus. Note that this examination was not protocoled for evaluation of the pulmonary arteries. Heart: The heart is mildly enlarged and without pericardial effusion. Lungs and pleural spaces: The trachea and central airways are clear. No pneumothorax is identified. There is dense airspace consolidation seen throughout the lower lobes, right greater than left. Trace pleural effusions are noted. Mild patchy consolidation is seen in the right upper and middle lobes. Mediastinum: There is no mediastinal hematoma or lymphadenopathy. Varsha: Clear. Axillae: There is no axillary lymphadenopathy. Bony thorax: The skeletal structures are osteopenic. The bony thorax appears intact. Mild spondylotic change is seen throughout the thoracic spine. Advanced arthritic change is noted in the shoulders. No lytic or blastic lesions are identified. ABDOMEN AND PELVIS: Liver: The contrast-enhanced liver is normal in size, contour, and attenuation. There is no intra- or extrahepatic biliary ductal dilatation. The hepatic veins and portal veins are patent. Gallbladder: The gallbladder is mildly distended but otherwise normal in appearance. Spleen: Normal in size and attenuation. Pancreas: Moderately atrophic and grossly unremarkable. Adrenal glands: Unremarkable. Kidneys: The contrast enhanced kidneys demonstrate cortical atrophy and are without hydronephrosis. The kidneys enhance symmetrically. Renal cysts measure up to 2.0 cm. Additional subcentimeter cortical hypodensities also likely represent cysts but are too small for definitive characterization. Abdominal vasculature: There is advanced atherosclerotic calcification and mild ectasia of the abdominal aorta. Stomach and bowel: There is a moderate hiatal hernia. There is rectosigmoid fecal retention and mild to moderate constipation. No bowel obstruction is seen. The appendix is not visualized. Peritoneum: There is no intraperitoneal free air or abdominal ascites. Lymphadenopathy: None. Pelvic viscera: Evaluation of the pelvis is degraded by streak artifact from a left hip arthroplasty. The bladder is distended but otherwise normal in appearance. The uterus is surgically absent. A 2.8 cm simple cystic lesion in the right adnexa on image #339 is likely related to the right ovary and unchanged from 12/31/2018. Skeletal structures: Double structures are osteopenic. No lytic or blastic lesions are seen. The lumbosacral spine, bony pelvis, and proximal femora appear intact. There is moderate lumbosacral spondylosis. Advanced arthritic changes noted in the right hip. A left hip arthroplasty is in place. IMPRESSION: 1. There is no acute posttraumatic intrathoracic abnormality. 2. There is no evidence of solid organ injury in the abdomen or pelvis. 3. Cardiomegaly. 4. Multifocal airspace consolidation is seen throughout both lungs, most confluent in the lower lobes. The appearance is typical for pneumonia/aspiration pneumonitis. Clinical correlation will be required and radiographic follow-up to resolution is recommended. 5. Trace pleural effusions. 6. No pneumothorax is seen. 7. There is rectosigmoid fecal retention and mild to moderate constipation. No bowel obstruction is seen. 8. Additional findings as above. ACT 112: Negative or not required by law. Electronically signed by: Lucio Damian M.D. 02/14/2021 12:[address] 02/14/21 10:06 CT SCAN OF THE CERVICAL SPINE CLINICAL HISTORY: Trauma. Fall. COMPARISON STUDY: CT of the cervical spine dated 01/02/2019. TECHNIQUE: CT scan of the cervical spine is performed from the skull base to the upper thoracic spine. Images are reviewed in the axial, sagittal, and coronal planes. IV contrast was not administered for this examination. A dose lowering technique was utilized adhering to the principles of ALARA. FINDINGS: Skeletal structures: The skeletal structures are osteopenic. There is no evidence of fracture or subluxation involving the cervical spine. Vertebral body height and alignment are maintained. Anterior osteophytes are seen throughout. There is straightening of the cervical lordosis. The odontoid process and lateral masses are intact. The atlantoaxial articulation is preserved noting mild productive degenerative change. The spinous processes appear intact. There is mild to moderate multilevel cervical spondylosis. Uncovertebral and facet arthropathy contribute sterile foraminal narrowing at several levels. Intervertebral discs: There is advanced disc space narrowing with endplate sclerosis seen at C3-C4. Moderate disc space narrowing is noted at C4-C5 and C5- C6. Central canal: Posterior disc osteophyte complexes at C3-C4, C4-C5, C5-C6 likely contribute to acquired compromise of the central canal. Soft tissues: The prevertebral and paraspinous soft tissues are within normal limits. There is atherosclerotic calcification of the carotid bulbs. Calvarium: The visualized calvarium at the skull base appears intact. Brain parenchyma: Partially visualized brain parenchyma at the skull base is within normal limits. Mastoid: The visualized right mastoid air cells are clear. Lung apices: Clear as visualized. IMPRESSION: 1. There is no evidence of fracture or subluxation involving the cervical spine. 2. Osteopenia and spondylotic change as above. ACT 112: Negative or not required by law. Electronically signed by: Lucio Damian M.D. 02/14/2021 11:[address] 02/14/21 10:06 CT SCAN OF THE CHEST, ABDOMEN, AND PELVIS WITH IV CONTRAST CLINICAL HISTORY: Trauma. Fall. COMPARISON STUDY: Chest x-ray dated 02/14/2021. Abdominal CT dated 12/31/2018. CT of the lumbar spine dated 10/31/2020. TECHNIQUE: Following the IV administration of 81 of Optiray 300, CT scan of the chest, abdomen, and pelvis was performed from the thoracic inlet to the proximal femora. Images are reviewed in the axial, sagittal, and coronal planes. IV contrast was administered without complication. A dose lowering technique was utilized adhering to the principles of ALARA. FINDINGS: CHEST: Thyroid: Imaged portions of the thyroid gland are normal in size and attenuation. Thoracic aorta: There is atherosclerotic calcification of the thoracic aorta, which is normal in caliber and demonstrates standard 3-vessel arch anatomy. No dissection is seen. Pulmonary vasculature: The pulmonary trunk is normal in caliber. There are no filling defects identified in the central pulmonary vessels to indicate pulmonary embolus. Note that this examination was not protocoled for evaluation of the pulmonary arteries. Heart: The heart is mildly enlarged and without pericardial effusion. Lungs and pleural spaces: The trachea and central airways are clear. No pneumothorax is identified. There is dense airspace consolidation seen throughout the lower lobes, right greater than left. Trace pleural effusions are noted. Mild patchy consolidation is seen in the right upper and middle lobes. Mediastinum: There is no mediastinal hematoma or lymphadenopathy. Varsha: Clear. Axillae: There is no axillary lymphadenopathy. Bony thorax: The skeletal structures are osteopenic. The bony thorax appears intact. Mild spondylotic change is seen throughout the thoracic spine. Advanced arthritic change is noted in the shoulders. No lytic or blastic lesions are identified. ABDOMEN AND PELVIS: Liver: The contrast-enhanced liver is normal in size, contour, and attenuation. There is no intra- or extrahepatic biliary ductal dilatation. The hepatic veins and portal veins are patent. Gallbladder: The gallbladder is mildly distended but otherwise normal in appearance. Spleen: Normal in size and attenuation. Pancreas: Moderately atrophic and grossly unremarkable. Adrenal glands: Unremarkable. Kidneys: The contrast enhanced kidneys demonstrate cortical atrophy and are without hydronephrosis. The kidneys enhance symmetrically. Renal cysts measure up to 2.0 cm. Additional subcentimeter cortical hypodensities also likely represent cysts but are too small for definitive characterization. Abdominal vasculature: There is advanced atherosclerotic calcification and mild ectasia of the abdominal aorta. Stomach and bowel: There is a moderate hiatal hernia. There is rectosigmoid fecal retention and mild to moderate constipation. No bowel obstruction is seen. The appendix is not visualized. Peritoneum: There is no intraperitoneal free air or abdominal ascites. Lymphadenopathy: None. Pelvic viscera: Evaluation of the pelvis is degraded by streak artifact from a left hip arthroplasty. The bladder is distended but otherwise normal in appearance. The uterus is surgically absent. A 2.8 cm simple cystic lesion in the right adnexa on image #339 is likely related to the right ovary and unchanged from 12/31/2018. Skeletal structures: Double structures are osteopenic. No lytic or blastic lesions are seen. The lumbosacral spine, bony pelvis, and proximal femora appear intact. There is moderate lumbosacral spondylosis. Advanced arthritic changes noted in the right hip. A left hip arthroplasty is in place. IMPRESSION: 1. There is no acute posttraumatic intrathoracic abnormality. 2. There is no evidence of solid organ injury in the abdomen or pelvis. 3. Cardiomegaly. 4. Multifocal airspace consolidation is seen throughout both lungs, most confluent in the lower lobes. The appearance is typical for pneumonia/aspiration pneumonitis. Clinical correlation will be required and radiographic follow-up to resolution is recommended. 5. Trace pleural effusions. 6. No pneumothorax is seen. 7. There is rectosigmoid fecal retention and mild to moderate constipation. No bowel obstruction is seen. 8. Additional findings as above. ACT 112: Negative or not required by law. Electronically signed by: Lucio Damian M.D. 02/14/2021 12:03 PM Chest X-Ray 02/14/21 10:06 XR chest 1V portable HISTORY: 76 years-old Female SEPSIS acute sepsis COMPARISON: Chest radiograph 01/04/2021 TECHNIQUE: Portable AP view the chest FINDINGS: Cardiac silhouette is enlarged. Right greater left bibasilar and midlung airspace opacities. Mild pulmonary vascular congestion. No pneumothorax. Probable trace left pleural effusion. Degenerative changes of the shoulders and spine. IMPRESSION: 1. Right greater than left bibasilar and midlung airspace opacities suggestive of pneumonia. 2. Cardiomegaly with pulmonary vascular congestion. 3. Trace left pleural effusion suggested. ACT 112: Negative or not required by law. The above report was generated using voice recognition software. It may contain grammatical, syntax or spelling errors. Electronically signed by: Ruben Gilbert M.D. 02/14/2021 11:[address] 02/14/21 10:06 CT OF THE HEAD WITHOUT CONTRAST CLINICAL HISTORY: Fall. COMPARISON STUDY: Head CT in January 05, 2021. CT DOSE: 2889.50 mGy.cm TECHNIQUE: Helical axial images of the head were obtained without IV contrast. Automated exposure control was utilized for the study. A dose lowering technique was utilized adhering to the principles of ALARA. FINDINGS: No acute intracranial hemorrhage, midline shift or mass effect is present. The ventricular system is stable. The basal cisterns are patent. No extra-axial collections are present. There are no findings to suggest acute dural sinus thrombosis or acute territorial infarct. No significant calvarial abnormalities are present. There are is moderate resulting of the left maxillary sinus. There are secretions within both maxillary sinuses. IMPRESSION: 1. No acute intracranial findings. 2. No calvarial fracture. 3. Mild increase in findings suggestive of bilateral maxillary sinusitis. ACT 112: Negative or not required by law. Electronically signed by: Yefri Carrasco M.D. 02/14/2021 11:47 AM ECG Additional Comments: 14-FEB-2021 09:36:40 [facility]-EDSTAT ROUTINE RETRIEVAL Sinus rhythm with Premature atrial complexes Otherwise normal ECG When compared with ECG of 05-JAN-2021 06:03, Premature atrial complexes are now Present QT has shortened 25mm/s 10mm/mV 150Hz 9.0.9 12SL 241 ROSALIO: 13 Referred by: REFERRED SELF Unconfirmed Vent. rate 64 BPM NH interval 164 ms QRS duration 96 ms QT/QTc 370/381 ms Code Status & VTE Plan Code Status Full code - daughter Supervising Physician Co-Signing Physician Notes Patient seen and examined, care coordinated with Jocelyn NYE This is 76-year-old female admitted with cough shortness of breath increased lethargy Chest x-ray shows possible bilateral pneumonia with concern for aspiration Patient was started with IV Zosyn, History of chronic diastolic heart failure, Clinically dry Patient received IV fluid in the ER, Hold diuretics History of PE/A. fib Hold Coumadin, INR elevated 3.9, repeat INR in the morning Acute renal failure on CKD stage III Hold diuretics, ordered IV fluids, repeat BMP, avoid NSAIDs and contrast studies Creatinine continues to worsen after fluid resuscitation consider nephrology consult Acute respiratory failure with hypoxia: Secondary to aspiration pneumonia Patient is started with Zosyn, aspiration precaution Speech pathology consulted CODE STATUS: Full code Please refer to further documentation by Jocelyn NYE for discussion of other medical issues: Elisabeth Siddiqui MD
[2021-02-14] MEDS ORDERED: ONDANSETRON INJ 2 MG/ML 2 ML VIAL IV PRN (14:40)
[2021-02-14] MEDS ORDERED: POLYETHYLENE (MIRALAX) 17 GM PACK PO PRN (14:40)
[2021-02-14] MEDS ORDERED: HYDROCODONE/ACETAMOPHEN 5/325MG TAB PO PRN (14:40)
[2021-02-14] MEDS ORDERED: SODIUM CHLORIDE 0.9% 1000ML 1,000 ML IV SCH (14:40)
[2021-02-14] MEDS ORDERED: PIPERACILL/TAZOBAC CONSULT ACTIVE PRN (14:53)
[2021-02-14] MEDS: LEVALBUTEROL 1.25MG/0.5ML NEB NEB SCH ×2 (15:16→19:22)
[2021-02-14] MEDS ORDERED: PIPERACILLIN/TAZOBACTAM 3.375 GM in DEXTROSE 5% 100 ML IV ONE (15:30)
[2021-02-14] MEDS: GABAPENTIN 100 MG CAP PO SCH ×2 (16:15→19:58)
[2021-02-14] MEDS: carvediloL 25 MG TAB PO SCH (16:55)
[2021-02-14] MEDS: amLODIPine BESYLATE 5 MG TAB PO SCH (19:58)
[2021-02-14] MEDS: DOCUSATE SODIUM 100 MG CAP PO SCH (19:59)
[2021-02-14] MEDS: ATORVASTATIN 40 MG TAB PO SCH (19:59)
[2021-02-14] MEDS: guaiFENesin 600 MG TABCR PO SCH (19:59)
[2021-02-14] MEDS: DOCUSATE SODIUM/SENNA 50/8.6MG TAB PO SCH (19:59)
[2021-02-14] MEDS: PIPERACILLIN/TAZOBACTAM 3.375 GM in DEXTROSE 5% 100 ML IV SCH (20:08)
[2021-02-14] MEDS ORDERED: cefTRIAXone SODIUM 2,000 MG in DEXTROSE 5% 50 ML IV SCH (21:00)
[2021-02-15] MEDS: LEVALBUTEROL 1.25MG/0.5ML NEB NEB SCH ×2 (00:13→07:17)
[2021-02-15] MEDS: PIPERACILLIN/TAZOBACTAM 3.375 GM in DEXTROSE 5% 100 ML IV SCH ×3 (04:17→20:32)
[2021-02-15] MEDS: GABAPENTIN 100 MG CAP PO SCH ×3 (06:00→20:32)
[2021-02-15] MEDS: PANTOprazole 40 MG TAB PO SCH (06:00)
[2021-02-15 07:27] LABS: Hematocrit (blood only) 28.6 % (37-47); Hemoglobin 9.6 g/dL (12.0-16.0); Mean Corpuscular Hemoglobin 32.1 pg (25-34); Mean Corpuscular Hgb Conc 33.6 g/dL (32-36); Mean Corpuscular Volume 95.7 fL (80-100); Mean Platelet Volume 9.9 fL (7.4-10.4); Platelet Count 213 K/uL (130-400); RDW Coefficient of Variation 14.6 % (11.5-14.5); RDW Standard Deviation 50.8 fL (36.4-46.3); Red Blood Count 2.99 M/uL (4.2-5.4); White Blood Count 14.67 K/uL (4.8-10.8)
[2021-02-15 07:47] LABS: INR 4.3 (0.9-1.1); Prothrombin Time 39.1 Seconds (9.0-12.0)
--- NOTE | 2021-02-15 08:00 | Electrocardiogram Report ---
Test Reason : Blood Pressure : / mmHG Vent. Rate : 064 BPM Atrial Rate : 064 BPM P-R Int : 164 ms QRS Dur : 096 ms QT Int : 370 ms P-R-T Axes : 033 -20 054 degrees QTc Int : 381 ms Sinus rhythm with Premature atrial complexes Voltage criteria for left ventricular hypertrophy Otherwise normal ECG When compared with ECG of 05-JAN-2021 06:03, Premature atrial complexes are now Present QT has shortened Confirmed by Yonny Chruch ([id number]) on 02/15/2021 8:00:16 AM Referred By: REFERRED SELF Confirmed By:Yonny Church
[2021-02-15] MEDS: ISOSORBIDE MONO EXTENDED REL 60 MG TABCR PO SCH (08:10)
[2021-02-15] MEDS: SERTRALINE HCL 50 MG TABLET PO SCH (08:10)
[2021-02-15] MEDS: carvediloL 25 MG TAB PO SCH ×2 (08:10→17:16)
[2021-02-15] MEDS: guaiFENesin 600 MG TABCR PO SCH ×2 (08:10→20:35)
[2021-02-15] MEDS: ASPIRIN 81 MG ECTAB PO SCH (08:10)
[2021-02-15 08:13] LABS: Albumin Globulin Ratio 0.8 (0.9-2); Albumin Level 2.5 gm/dl (3.4-5.0); BUN Creatinine Ratio 31.3 (10-20); Bilirubin,Total 0.7 mg/dl (0.2-1); Calcium 8.5 mg/dl (8.5-10.1); Creatinine Clr Calc Pharmacy 44.5 ml/min; Est GFR (African American) 52.6; Est GFR (Non-African American) 45.4; Globulin 3.1 gm/dl (2.5-4.0); Potassium 4.2 mmol/L (3.5-5.1); Total Protein 5.6 gm/dl (6.4-8.2)
[2021-02-15] MEDS ORDERED: LOSARTAN POTASSIUM 25 MG TAB PO SCH (09:00)
[2021-02-15] MEDS ORDERED: SPIRONOLACTONE 12.5 MG TAB PO SCH (09:00)
[2021-02-15] MEDS ORDERED: AZITHROMYCIN 250 MG TAB PO SCH (09:00)
[2021-02-15] MEDS ORDERED: bisacodyL 5 MG TABEC PO ONE (09:24)
--- NOTE | 2021-02-15 09:31 | Communication Note ---
Date of Service: February 15, 2021 76-year-old female admitted yesterday with deconditioning generalized weakness, fall, was noted to be hypoxic, CT chest shows bilateral infiltrate suggestive of aspiration. Patient was also clinically dehydrated creatinine. Suggestive of acute renal failure Acute renal failure with underlying CKD stage III. Secondary to poor p.o. intake, pneumonia, infection. Patient was given gentle IV fluids, Lasix and ARB kept on hold Creatinine improved to patient's baseline. Continue to monitor, Patient received IV contrast yesterday CT chest and abdomen pelvis, continue to hold diuretics for another 24 hours. Started with Zosyn for aspiration pneumonia, dose will be adjusted by renal clearance, pharmacy following. pt will be followed by Dr Ren from today Elisabeth Siddiqui MD
[2021-02-15] MEDS ORDERED: LEVALBUTEROL 1.25MG/0.5ML NEB NEB PRN (10:06)
--- NOTE | 2021-02-15 13:54 | Fluoroscopy Report ---
MODIFIED BARIUM SWALLOW CLINICAL HISTORY: assess for aspiration COMPARISON STUDY: None. FLUOROSCOPY TIME: 1.5 minutes. TECHNIQUE: A modified barium swallow was performed in conjunction with Speech Pathology. The patient ingested varying consistencies of barium containing material. Video fluoroscopy was performed. FINDINGS: No aspiration was identified with thin liquids, nectar thick liquids, pudding or crackers w ith paste. Epiglottic inversion was normal. Laryngeal elevation was normal. Swallowing mechanism was intact. IMPRESSION: 1. No tracheal aspiration identified. Instead intact swallowing mechanism. 2. Full recommendations by speech pathology to follow. ACT 112: Negative or not required by law. Electronically signed by: Yefri Carrasco M.D. 02/15/2021 1:52 PM
--- NOTE | 2021-02-15 18:34 | Hospitalist Progress Note ---
Date of Service February 15, 2021 Assessment & Plan (1) Pneumonia: Present on admission with weakness and SOB CXR reviewed, concern for bilateral pneumonia, small pleural effusions, diminished breath sounds at this location CT chest showing patchy infiltrate in the right middle lobe and right lower lobe and in left. COVID 19 negative and normal lactic acid Ceftriaxone and azithromycin given x 1 in the ER, continue abx with IV Zosyn Pulmonary toilet with flutter, incentive spirometry, Mucinex, Tylenol, sputum culture if produces expectorant Speech on board Video swallow done and showed No tracheal aspiration identified. Instead intact swallowing mechanism. Continue IV Zosyn Clinically improves (2) Chronic diastolic HF (heart failure), NYHA class 2: History of such, give 1L more of NSS secondary to pneumonia and vomiting, then stop if can tolerate p.o. intake BP stable Continue Coreg, amlodipine, losartan, aspirin, Will resume lasix in am (3) Hypertension: Continue antihypertensives as above (4) GERD (gastroesophageal reflux disease): Continue Protonix 40 mg daily (5) Pulmonary embolism: History of such in 2013, home regimen Coumadin with 4 mg MWF and 2 mg on all other days. INR above 4 Continue to hold Coumadin (6) CKD (chronic kidney disease), stage III: -Creatinine currently 1.49, appears her baseline is closer to 1, fluids as above, continuing MARIALUISA and ARB, holding Lasix -Follow a.m. BMP (7) PAF (paroxysmal atrial fibrillation): - Sinus, rate controlled, continue meds as above - Coumadin as above (8) Mild dementia: -Stable, typically knows name, family members, location and sometimes the date. Her daughter and son take turns taking care of her in her home, involves staying overnight, management of medications, assisting with taking to appointments, etc. 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 (10) Anemia: - Hgb 11.5, pt daughter reports seeing small amounts coffee ground emesis in vomitus, Already on PPI po daily - Coumadin as above - Guiac stools (11) DVT prophylaxis: - teds, scds CODE: Full Dispo: From home, likely to remain in the hospital x 1-2 days Admission and Anticipated Discharge Date Admission Date: February 14, 2021 Subjective Pt was seen and examined for follow up with SOB and weakness Lying in bed with no distress Pt said that she feels much better Denies any chest pain, palpitation, dizziness and SOB Review of Systems Review of Systems: All systems reviewed & are unremarkable except as noted in Subjective Physical Exam Physical Exam: General- No acute distress Head- atraumatic Eyes- PERRL, EOMI, ENT- oropharynx clear Neck- supple, no JVD Lungs- coarse BS Heart- regular rhythm; no murmur Abdomen- normal bowel sounds, soft, nontender Extremities- no calf tenderness Neuro- alert, oriented x 3; PERRL, EOMI; no facial palsy; no dysarthria Skin- warm & dry Results & Data Results & Data ([facility]) Vital Signs (Past 12 Hours) Vital Signs Temp Pulse Pulse Resp BP Pulse Ox Pulse Ox 02/15/21 16:00 58 L 02/15/21 15:39 36.7 C 58 L 19 151/67 H 95 02/15/21 11:59 36.7 C 62 18 103/61 96 02/15/21 10:06 93 02/15/21 08:00 78 02/15/21 07:50 36.9 C 65 18 119/66 93 02/15/21 07:17 100 H 16 94
[2021-02-15] MEDS: ATORVASTATIN 40 MG TAB PO SCH (20:35)
[2021-02-15] MEDS: POLYETHYLENE (MIRALAX) 17 GM PACK PO SCH (20:35)
[2021-02-15] MEDS: DOCUSATE SODIUM/SENNA 50/8.6MG TAB PO SCH (20:35)
[2021-02-15] MEDS: amLODIPine BESYLATE 5 MG TAB PO SCH (20:35)
[2021-02-15] MEDS: DOCUSATE SODIUM 100 MG CAP PO SCH (20:35)
[2021-02-16] MEDS: ACETAMINOPHEN 325 MG TAB PO PRN ×2 (00:47→18:09)
[2021-02-16] MEDS: PIPERACILLIN/TAZOBACTAM 3.375 GM in DEXTROSE 5% 100 ML IV SCH ×3 (04:51→22:24)
[2021-02-16] MEDS: GABAPENTIN 100 MG CAP PO SCH ×3 (05:35→22:23)
[2021-02-16] MEDS: PANTOprazole 40 MG TAB PO SCH (05:35)
[2021-02-16 06:59] LABS: Hematocrit (blood only) 29.7 % (37-47); Hemoglobin 9.9 g/dL (12.0-16.0); Mean Corpuscular Hemoglobin 31.7 pg (25-34); Mean Corpuscular Hgb Conc 33.3 g/dL (32-36); Mean Corpuscular Volume 95.2 fL (80-100); Mean Platelet Volume 9.9 fL (7.4-10.4); Platelet Count 228 K/uL (130-400); RDW Coefficient of Variation 14.5 % (11.5-14.5); RDW Standard Deviation 50.1 fL (36.4-46.3); Red Blood Count 3.12 M/uL (4.2-5.4); White Blood Count 13.91 K/uL (4.8-10.8)
[2021-02-16 07:39] LABS: Albumin Level 2.8 gm/dl (3.4-5.0); BUN Creatinine Ratio 28.7 (10-20); Calcium 8.4 mg/dl (8.5-10.1); Creatinine Clr Calc Pharmacy 47.6 ml/min; Est GFR (African American) 58.7; Est GFR (Non-African American) 50.6; Potassium 3.8 mmol/L (3.5-5.1)
[2021-02-16 07:42] LABS: Albumin Globulin Ratio 0.7 (0.9-2); Bilirubin,Total 0.8 mg/dl (0.2-1); Globulin 3.8 gm/dl (2.5-4.0); Total Protein 6.6 gm/dl (6.4-8.2)
[2021-02-16] MEDS: ISOSORBIDE MONO EXTENDED REL 60 MG TABCR PO SCH (08:09)
[2021-02-16] MEDS: guaiFENesin 600 MG TABCR PO SCH ×2 (08:09→22:23)
[2021-02-16] MEDS: SERTRALINE HCL 50 MG TABLET PO SCH (08:09)
[2021-02-16] MEDS: carvediloL 25 MG TAB PO SCH ×2 (08:10→18:13)
[2021-02-16] MEDS: POLYETHYLENE (MIRALAX) 17 GM PACK PO SCH ×2 (08:10→22:26)
[2021-02-16] MEDS ORDERED: FUROSEMIDE 20 MG TAB PO ONE (09:15)
[2021-02-16 09:44] LABS: INR 2.7 (0.9-1.1); Prothrombin Time 25.7 Seconds (9.0-12.0)
--- NOTE | 2021-02-16 16:05 | Hospitalist Progress Note ---
Date of Service February 16, 2021 Assessment & Plan (1) Pneumonia: Present on admission with weakness and SOB CXR reviewed, concern for bilateral pneumonia, small pleural effusions, diminished breath sounds at this location CT chest showing patchy infiltrate in the right middle lobe and right lower lobe and in left. COVID 19 negative and normal lactic acid Ceftriaxone and azithromycin given x 1 in the ER, continue abx with IV Zosyn Pulmonary toilet with flutter, incentive spirometry, Mucinex, Tylenol, sputum culture if produces expectorant Speech on board Video swallow done and showed No tracheal aspiration identified. Instead intact swallowing mechanism. On IV Zosyn, will transition to PO abx Saturated well on RA Clinically improves (2) Chronic diastolic HF (heart failure), NYHA class 2: History of such, give 1L more of NSS secondary to pneumonia and vomiting, then stop if can tolerate p.o. intake BP stable Continue Coreg, amlodipine, losartan, aspirin, Lasix resumed this morning (3) Hypertension: Continue antihypertensives as above (4) GERD (gastroesophageal reflux disease): Continue Protonix 40 mg daily (5) Pulmonary embolism: History of such in 2013, home regimen Coumadin with 4 mg MWF and 2 mg on all other days. INR 2.7 today Will resume Coumadin today (6) CKD (chronic kidney disease), stage III: Creatinine currently 1.49 Continue monitor BMP Creatinine stable (7) PAF (paroxysmal atrial fibrillation): Rate controlled with carvedilol Continue coumadin (8) Mild dementia: -Stable, typically knows name, family members, location and sometimes the date. Her daughter and son take turns taking care of her in her home, involves staying overnight, management of medications, assisting with taking to appointments, etc. 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 (10) Anemia: Hgb 11.5, pt daughter reports seeing small amounts coffee ground emesis in vomitus, Already on PPI po daily Hgb stable at 9.9 (11) DVT prophylaxis: teds, scds CODE: Full Disposition Plan to discharge home today Admission and Anticipated Discharge Date Admission Date: February 14, 2021 Subjective Pt was seen and examined for follow up with SOB and weakness Lying in bed with no distress Pt said that she feels much better saturated well on RA I tried to call her daughter Zeyad to provide with updates, but no one answered Denies any chest pain, palpitation, dizziness and SOB Review of Systems Review of Systems: All systems reviewed & are unremarkable except as noted in Subjective Physical Exam Physical Exam: General- No acute distress Head- atraumatic Eyes- PERRL, EOMI, ENT- oropharynx clear Neck- supple, no JVD Lungs- coarse BS Heart- regular rhythm; no murmur Abdomen- normal bowel sounds, soft, nontender Extremities- no calf tenderness Neuro- alert, oriented x 3; PERRL, EOMI; no facial palsy; no dysarthria Skin- warm & dry Results & Data Results & Data ([facility]) Vital Signs (Past 12 Hours) Vital Signs Temp Pulse Pulse Pulse Resp BP Pulse Ox 02/16/21 15:14 59 L 02/16/21 14:00 36.8 C 100 H 83 18 160/75 H 160 H 02/16/21 11:00 36.5 C 79 20 164/73 H 96 02/16/21 07:00 36.9 C 68 18 176/98 H 96
[2021-02-16] MEDS ORDERED: WARFARIN SOD 2.5 MG TAB PO ONE (16:12)
[2021-02-16] MEDS: DOCUSATE SODIUM 100 MG CAP PO SCH (22:23)
[2021-02-16] MEDS: amLODIPine BESYLATE 5 MG TAB PO SCH (22:23)
[2021-02-16] MEDS: ATORVASTATIN 40 MG TAB PO SCH (22:23)
[2021-02-16] MEDS: DOCUSATE SODIUM/SENNA 50/8.6MG TAB PO SCH (22:23)
[2021-02-17] MEDS: PIPERACILLIN/TAZOBACTAM 3.375 GM in DEXTROSE 5% 100 ML IV SCH (05:02)
[2021-02-17] MEDS: GABAPENTIN 100 MG CAP PO SCH ×2 (05:43→13:59)
[2021-02-17] MEDS: PANTOprazole 40 MG TAB PO SCH (05:43)
[2021-02-17 06:32] LABS: Hematocrit (blood only) 29.3 % (37-47); Hemoglobin 9.8 g/dL (12.0-16.0); Mean Corpuscular Hemoglobin 31.9 pg (25-34); Mean Corpuscular Hgb Conc 33.4 g/dL (32-36); Mean Corpuscular Volume 95.4 fL (80-100); Mean Platelet Volume 9.7 fL (7.4-10.4); Platelet Count 250 K/uL (130-400); RDW Coefficient of Variation 14.4 % (11.5-14.5); RDW Standard Deviation 49.9 fL (36.4-46.3); Red Blood Count 3.07 M/uL (4.2-5.4); White Blood Count 10.83 K/uL (4.8-10.8)
[2021-02-17 07:06] LABS: Albumin Level 2.6 gm/dl (3.4-5.0); BUN Creatinine Ratio 24.3 (10-20); Calcium 9.1 mg/dl (8.5-10.1); Creatinine Clr Calc Pharmacy 50.6 ml/min; Est GFR (African American) 63.7; Potassium 3.6 mmol/L (3.5-5.1)
[2021-02-17 07:08] LABS: Albumin Globulin Ratio 0.7 (0.9-2); Bilirubin,Total 0.8 mg/dl (0.2-1); Globulin 3.9 gm/dl (2.5-4.0); Total Protein 6.5 gm/dl (6.4-8.2)
[2021-02-17 07:16] LABS: Basophils # (auto) 0.02 K/uL (0-0.2); Basophils % (auto) 0.2 %; Eosinophils % (auto) 2.9 %; Hematocrit (blood only) 29.6 % (37-47); Hemoglobin 9.8 g/dL (12.0-16.0); Immature Granulocytes # (auto) 0.12 K/uL (0.00-0.02); Immature Granulocytes % (auto) 1.2 %; Lymphocytes # (auto) 1.42 K/uL (1.2-3.4); Lymphocytes % (auto) 13.6 %; Mean Corpuscular Hemoglobin 31.6 pg (25-34); Mean Corpuscular Hgb Conc 33.1 g/dL (32-36); Mean Corpuscular Volume 95.5 fL (80-100); Mean Platelet Volume 9.8 fL (7.4-10.4); Monocytes # (auto) 0.64 K/uL (0.11-0.59); Monocytes % (auto) 6.1 %; Neutrophils # (auto) 7.91 K/uL (1.4-6.5); Platelet Count 255 K/uL (130-400); RDW Coefficient of Variation 14.4 % (11.5-14.5); RDW Standard Deviation 50.4 fL (36.4-46.3); White Blood Count 10.41 K/uL (4.8-10.8)
[2021-02-17 07:48] LABS: BUN Creatinine Ratio 23.3 (10-20); Calcium 8.4 mg/dl (8.5-10.1); Creatinine Clr Calc Pharmacy 49.6 ml/min; Est GFR (African American) 62.2; Est GFR (Non-African American) 53.7; Magnesium 2.5 mg/dl (1.8-2.4); Potassium 3.7 mmol/L (3.5-5.1)
[2021-02-17 08:00] LABS: Thyroid Stimulating Hormone 3.42 uIu/ml (0.300-4.500)
[2021-02-17] MEDS: ASPIRIN 81 MG ECTAB PO SCH (08:09)
[2021-02-17] MEDS: ISOSORBIDE MONO EXTENDED REL 60 MG TABCR PO SCH (08:10)
[2021-02-17] MEDS: guaiFENesin 600 MG TABCR PO SCH (08:10)
[2021-02-17] MEDS: SERTRALINE HCL 50 MG TABLET PO SCH (08:10)
[2021-02-17] MEDS: carvediloL 25 MG TAB PO SCH (08:10)
[2021-02-17] MEDS: POLYETHYLENE (MIRALAX) 17 GM PACK PO SCH (08:11)
[2021-02-17] MEDS ORDERED: FUROSEMIDE 40 MG TAB PO ONE (08:49)
[2021-02-17 11:13] LABS: Appearance Urine Clear (Clear); Bacteria Urine Automated Negative (Negative); Bilirubin Urine Negative (Negative); Blood Urine 1+ (Negative); Cast Urine Automated 0 /lpf (0-5); Color Urine Yellow; Glucose Urine UA Negative (Negative); Ketones Urine Negative (Negative); Leukocyte Esterase Urine Negative (Negative); Nitrite Urine Negative (Negative); Protein Urine Negative (Negative); RBC Urine Automated 0-4 /hpf (0-4); Specific Gravity Urine 1.011 (1.000-1.030); Urobilinogen Urine Negative (Negative); pH Urine 6.5 (4.5-7.5)
--- NOTE | 2021-02-17 14:08 | Hospitalist Progress Note ---
Date of Service February 17, 2021 Assessment & Plan (1) Pneumonia: Present on admission with weakness and SOB CXR reviewed, concern for bilateral pneumonia, small pleural effusions, diminished breath sounds at this location CT chest showing patchy infiltrate in the right middle lobe and right lower lobe and in left. COVID 19 negative and normal lactic acid Ceftriaxone and azithromycin given x 1 in the ER, continue abx with IV Zosyn Pulmonary toilet with flutter, incentive spirometry, Mucinex, Tylenol, sputum culture if produces expectorant Speech on board Video swallow done and showed No tracheal aspiration identified. Instead intact swallowing mechanism. On IV Zosyn, will transition to PO Augmentin on discharge Saturated well on RA Clinically improves (2) Chronic diastolic HF (heart failure), NYHA class 2: History of such, give 1L more of NSS secondary to pneumonia and vomiting, then stop if can tolerate p.o. intake BP stable Continue Coreg, amlodipine, losartan, aspirin, Continue lasix (3) Hypertension: Continue antihypertensives as above (4) GERD (gastroesophageal reflux disease): Continue Protonix 40 mg daily (5) Pulmonary embolism: History of such in 2013, home regimen Coumadin with 4 mg MWF and 2 mg on all other days. INR 2.7 today Will resume Coumadin today (6) CKD (chronic kidney disease), stage III: Creatinine currently 1.49 Creatinine 1.01 Continue monitor BMP (7) PAF (paroxysmal atrial fibrillation): Rate controlled with carvedilol Continue coumadin with INR 2 today (8) Mild dementia: -Stable, typically knows name, family members, location and sometimes the date. Her daughter and son take turns taking care of her in her home, involves staying overnight, management of medications, assisting with taking to appointments, etc. 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 Coumadin resume on 02/16/21 Continue PT/OT fall precaution (10) Anemia: Hgb 11.5, pt daughter reports seeing small amounts coffee ground emesis in vomitus, Already on PPI po daily Hgb stable at 9.8 (11) DVT prophylaxis: On coumadin with INR 2. CODE: Full Disposition Plan to discharge home today Admission and Anticipated Discharge Date Admission Date: February 14, 2021 Subjective Pt was seen and examined for follow up with SOB and weakness Lying in bed with no distress Pt said that she feels fine She walked with therapy today in the hallway Denies any chest pain, palpitation, dizziness and SOB Review of Systems Review of Systems: All systems reviewed & are unremarkable except as noted in Subjective Physical Exam Physical Exam: General- No acute distress Head- atraumatic Eyes- PERRL, EOMI, ENT- oropharynx clear Neck- supple, no JVD Lungs- coarse BS Heart- regular rhythm; no murmur Abdomen- normal bowel sounds, soft, nontender Extremities- no calf tenderness Neuro- alert, oriented x 3; PERRL, EOMI; no facial palsy; no dysarthria Skin- warm & dry Results & Data Results & [facility] ([facility]) Vital Signs (Past 12 Hours) Vital Signs Temp Pulse Pulse Resp BP Pulse Ox 02/17/21 07:01 36.9 C 60 18 166/70 H 95 02/17/21 03:14 37.1 C 60 18 154/73 H 95
[2021-02-17] MEDS ORDERED: AMOXICILLIN/CLAVULANATE 875 MG TAB PO SCH (17:00)
--- NOTE | 2021-02-19 08:41 | Discharge Summary ---
Date of Service February 17, 2021 Admission HPI Per Admitting Provider This is a 76-year-old female with PMHx of chronic diastolic heart failure with an EF of 55%, Takotsubo cardiomyopathy, pulmonary hypertension, HTN, HLD, History of PE, anemia, dementia who presents to the ER today with increased weakness, vomiting x1, fever overnight and increased shortness of breath. Typically does not wear any supplemental O2 at baseline, currently requiring 2 L with sats at 96%. History is obtained by her daughter, due to the patient's dementia. Daughter reports that she yesterday developed worsening shortness of breath which was apparent with exertion and walking within the house, this morning it significantly worsened where she was extremely short of breath within 10 to 15 feet distance. She also had significant shaking and chills this morning and vomited x2 at home. Patient also has complaints of lower abdominal pain currently. She denies diarrhea or constipation. Patient's appetite had been good up until 2 days ago when it seemed that her appetite significantly decreased. She did not take any of her morning medications today due to vomiting. Daughter notes some spots in bilious vomitus that were coffee-ground however denies complete coffee-ground emesis or large quantities of such. Denies any bright red blood or streaking. EMS was called and discovered she was febrile. Once in the ER patient is found to have bilateral lower lobe pneumonia with a small left pleural effusion. Admission Exam Per Admitting Provider General: awake, alert, no apparent distress, drifts off to sleep easily Head: Normocephalic, atraumatic ENT: PERRL, EOMI, no pharyngeal exudate, mucous membranes moist Chest: on 2 L via NC, + rales at bases, diminished breath sounds, absent sounds at left base Cardiac: Regular rate and rhythm, few extra beats, soft murmur grade I/, no JVD, normal peripheral pulses, good capillary refill Abdominal: NABS x 4 quadrants, soft, nondistended, nontender to palpation, no rebound or guarding Extremities: + multiple areas of ecchymosis over extremities, otherwise normal inspection, no peripheral edema or erythema, calfs nontender to palpation Psych: Normal mood and affect Neuro: Awakens to verbal stimuli, knows she is in a hospital, no oriented to date, year or president, unable to tell me HPI. no gross motor deficits, speech is clear, no peripheral sensory deficits Principal Diagnosis Pneumonia: Chronic diastolic HF (heart failure), NYHA class 2: Hypertension: GERD (gastroesophageal reflux disease): Pulmonary embolism: CKD (chronic kidney disease), stage III: PAF (paroxysmal atrial fibrillation): Dementia: Fall: Anemia: Discharge Exam General- No acute distress Head- atraumatic Eyes- PERRL, EOMI, ENT- oropharynx clear Neck- supple, no JVD Lungs- coarse BS Heart- regular rhythm; no murmur Abdomen- normal bowel sounds, soft, nontender Extremities- no calf tenderness Neuro- alert, oriented x 3; PERRL, EOMI; no facial palsy; no dysarthria Skin- warm & dry Discharge Data Allergies Allergy/AdvReac Type Severity Reaction Status Date / Time codeine Allergy Severe SHORTNESS Verified 02/14/21 11:25 OF BREATH morphine AdvReac Intermediate dizzy/nause Verified 02/14/21 11:25 a onion AdvReac Mild Headache Verified 02/14/21 11:25 caffeine AdvReac Anxiety Verified 02/14/21 11:25 Consultations 02/14/21 12:22 ED Decision to Admit Stat Ordered Studies 02/14/21 10:06 CT abd pelvis IV con only Stat CT cervical spine wo con Stat CT chest diagnostic w con Stat CT head/brain wo con Stat 02/15/21 13:00 FL video swallow Routine MODIFIED BARIUM SWALLOW CLINICAL HISTORY: assess for aspiration COMPARISON STUDY: None. FLUOROSCOPY TIME: 1.5 minutes. TECHNIQUE: A modified barium swallow was performed in conjunction with Speech Pathology. The patient ingested varying consistencies of barium containing material. Video fluoroscopy was performed. FINDINGS: No aspiration was identified with thin liquids, nectar thick liquids, pudding or crackers with paste. Epiglottic inversion was normal. Laryngeal elevation was normal. Swallowing mechanism was intact. IMPRESSION: 1. No tracheal aspiration identified. Instead intact swallowing mechanism. 2. Full recommendations by speech pathology to follow. ACT 112: Negative or not required by law. Electronically signed by: Yefri Carrasco M.D. 02/15/2021 1:52 PM Dictated: 02/15/21 1351Transcribed: 02/15/[address] OF THE HEAD WITHOUT CONTRAST CLINICAL HISTORY: Fall. COMPARISON STUDY: Head CT in January 05, 2021. CT DOSE: 2889.50 mGy.cm TECHNIQUE: Helical axial images of the head were obtained without IV contrast. Automated exposure control was utilized for the study. A dose lowering technique was utilized adhering to the principles of ALARA. FINDINGS: No acute intracranial hemorrhage, midline shift or mass effect is present. The ventricular system is stable. The basal cisterns are patent. No extra-axial collections are present. There are no findings to suggest acute dural sinus thrombosis or acute territorial infarct. No significant calvarial abnormalities are present. There are is moderate resulting of the left maxillary sinus. There are secretions within both maxillary sinuses. IMPRESSION: 1. No acute intracranial findings. 2. No calvarial fracture. 3. Mild increase in findings suggestive of bilateral maxillary sinusitis. ACT 112: Negative or not required by law. Electronically signed by: Yefri Carrasco M.D. 02/14/2021 11:47 AM Dictated: 02/14/21 1145Transcribed: 02/14/21 1145 XR chest 1V portable HISTORY: 76 years-old Female SEPSIS acute sepsis COMPARISON: Chest radiograph 01/04/2021 TECHNIQUE: Portable AP view the chest FINDINGS: Cardiac silhouette is enlarged. Right greater left bibasilar and midlung airspace opacities. Mild pulmonary vascular congestion. No pneumothorax. Probable trace left pleural effusion. Degenerative changes of the shoulders and spine. IMPRESSION: 1. Right greater than left bibasilar and midlung airspace opacities suggestive of pneumonia. 2. Cardiomegaly with pulmonary vascular congestion. 3. Trace left pleural effusion suggested. ACT 112: Negative or not required by law. The above report was generated using voice recognition software. It may contain grammatical, syntax or spelling errors. Electronically signed by: Ruben Gilbert M.D. 02/14/2021 11:01 AM Dictated: 02/14/21 1100Transcribed: 02/14/[address] SCAN OF THE CHEST, ABDOMEN, AND PELVIS WITH IV CONTRAST CLINICAL HISTORY: Trauma. Fall. COMPARISON STUDY: Chest x-ray dated 02/14/2021. Abdominal CT dated 12/31/2018. CT of the lumbar spine dated 10/31/2020. TECHNIQUE: Following the IV administration of 81 of Optiray 300, CT scan of the chest, abdomen, and pelvis was performed from the thoracic inlet to the proximal femora. Images are reviewed in the axial, sagittal, and coronal planes. IV contrast was administered without complication. A dose lowering technique was utilized adhering to the principles of ALARA. FINDINGS: CHEST: Thyroid: Imaged portions of the thyroid gland are normal in size and attenuation. Thoracic aorta: There is atherosclerotic calcification of the thoracic aorta, which is normal in caliber and demonstrates standard 3-vessel arch anatomy. No dissection is seen. Pulmonary vasculature: The pulmonary trunk is normal in caliber. There are no filling defects identified in the central pulmonary vessels to indicate pulmonary embolus. Note that this examination was not protocoled for evaluation of the pulmonary arteries. Heart: The heart is mildly enlarged and without pericardial effusion. Lungs and pleural spaces: The trachea and central airways are clear. No pneumothorax is identified. There is dense airspace consolidation seen throughout the lower lobes, right greater than left. Trace pleural effusions are noted. Mild patchy consolidation is seen in the right upper and middle lobes. Mediastinum: There is no mediastinal hematoma or lymphadenopathy. Varsha: Clear. Axillae: There is no axillary lymphadenopathy. Bony thorax: The skeletal structures are osteopenic. The bony thorax appears intact. Mild spondylotic change is seen throughout the thoracic spine. Advanced arthritic change is noted in the shoulders. No lytic or blastic lesions are identified. ABDOMEN AND PELVIS: Liver: The contrast-enhanced liver is normal in size, contour, and attenuation. There is no intra- or extrahepatic biliary ductal dilatation. The hepatic veins and portal veins are patent. Gallbladder: The gallbladder is mildly distended but otherwise normal in appearance. Spleen: Normal in size and attenuation. Pancreas: Moderately atrophic and grossly unremarkable. Adrenal glands: Unremarkable. Kidneys: The contrast enhanced kidneys demonstrate cortical atrophy and are without hydronephrosis. The kidneys enhance symmetrically. Renal cysts measure up to 2.0 cm. Additional subcentimeter cortical hypodensities also likely represent cysts but are too small for definitive characterization. Abdominal vasculature: There is advanced atherosclerotic calcification and mild ectasia of the abdominal aorta. Stomach and bowel: There is a moderate hiatal hernia. There is rectosigmoid fecal retention and mild to moderate constipation. No bowel obstruction is seen. The appendix is not visualized. Peritoneum: There is no intraperitoneal free air or abdominal ascites. Lymphadenopathy: None. Pelvic viscera: Evaluation of the pelvis is degraded by streak artifact from a left hip arthroplasty. The bladder is distended but otherwise normal in appearance. The uterus is surgically absent. A 2.8 cm simple cystic lesion in the right adnexa on image #339 is likely related to the right ovary and unchanged from 12/31/2018. Skeletal structures: Double structures are osteopenic. No lytic or blastic lesions are seen. The lumbosacral spine, bony pelvis, and proximal femora appear intact. There is moderate lumbosacral spondylosis. Advanced arthritic changes noted in the right hip. A left hip arthroplasty is in place. IMPRESSION: 1. There is no acute posttraumatic intrathoracic abnormality. 2. There is no evidence of solid organ injury in the abdomen or pelvis. 3. Cardiomegaly. 4. Multifocal airspace consolidation is seen throughout both lungs, most confluent in the lower lobes. The appearance is typical for pneumonia/aspiration pneumonitis. Clinical correlation will be required and radiographic follow-up to resolution is recommended. 5. Trace pleural effusions. 6. No pneumothorax is seen. 7. There is rectosigmoid fecal retention and mild to moderate constipation. No bowel obstruction is seen. 8. Additional findings as above. ACT 112: Negative or not required by law. Electronically signed by: Lucio Damian M.D. 02/14/2021 12:03 PM Dictated: 02/14/21 1151Transcribed: 02/14/[address] SCAN OF THE CERVICAL SPINE CLINICAL HISTORY: Trauma. Fall. COMPARISON STUDY: CT of the cervical spine dated 01/02/2019. TECHNIQUE: CT scan of the cervical spine is performed from the skull base to the upper thoracic spine. Images are reviewed in the axial, sagittal, and coronal planes. IV contrast was not administered for this examination. A dose lowering technique was utilized adhering to the principles of ALARA. FINDINGS: Skeletal structures: The skeletal structures are osteopenic. There is no evidence of fracture or subluxation involving the cervical spine. Vertebral body height and alignment are maintained. Anterior osteophytes are seen throughout. There is straightening of the cervical lordosis. The odontoid process and lateral masses are intact. The atlantoaxial articulation is preserved noting mild productive degenerative change. The spinous processes appear intact. There is mild to moderate multilevel cervical spondylosis. Uncovertebral and facet arthropathy contribute sterile foraminal narrowing at several levels. Intervertebral discs: There is advanced disc space narrowing with endplate sclerosis seen at C3-C4. Moderate disc space narrowing is noted at C4-C5 and C5- C6. Central canal: Posterior disc osteophyte complexes at C3-C4, C4-C5, C5-C6 likely contribute to acquired compromise of the central canal. Soft tissues: The prevertebral and paraspinous soft tissues are within normal limits. There is atherosclerotic calcification of the carotid bulbs. Calvarium: The visualized calvarium at the skull base appears intact. Brain parenchyma: Partially visualized brain parenchyma at the skull base is within normal limits. Mastoid: The visualized right mastoid air cells are clear. Lung apices: Clear as visualized. IMPRESSION: 1. There is no evidence of fracture or subluxation involving the cervical spine. 2. Osteopenia and spondylotic change as above. ACT 112: Negative or not required by law. Electronically signed by: Lucio Damian M.D. 02/14/2021 11:50 AM Dictated: 02/14/21 1147Transcribed: 02/14/[address] SCAN OF THE CHEST, ABDOMEN, AND PELVIS WITH IV CONTRAST CLINICAL HISTORY: Trauma. Fall. COMPARISON STUDY: Chest x-ray dated 02/14/2021. Abdominal CT dated 12/31/2018. CT of the lumbar spine dated 10/31/2020. TECHNIQUE: Following the IV administration of 81 of Optiray 300, CT scan of the chest, abdomen, and pelvis was performed from the thoracic inlet to the proximal femora. Images are reviewed in the axial, sagittal, and coronal planes. IV contrast was administered without complication. A dose lowering technique was utilized adhering to the principles of ALARA. FINDINGS: CHEST: Thyroid: Imaged portions of the thyroid gland are normal in size and attenuation. Thoracic aorta: There is atherosclerotic calcification of the thoracic aorta, which is normal in caliber and demonstrates standard 3-vessel arch anatomy. No dissection is seen. Pulmonary vasculature: The pulmonary trunk is normal in caliber. There are no filling defects identified in the central pulmonary vessels to indicate pulmonary embolus. Note that this examination was not protocoled for evaluation of the pulmonary arteries. Heart: The heart is mildly enlarged and without pericardial effusion. Lungs and pleural spaces: The trachea and central airways are clear. No pneumothorax is identified. There is dense airspace consolidation seen throughout the lower lobes, right greater than left. Trace pleural effusions are noted. Mild patchy consolidation is seen in the right upper and middle lobes. Mediastinum: There is no mediastinal hematoma or lymphadenopathy. Varsha: Clear. Axillae: There is no axillary lymphadenopathy. Bony thorax: The skeletal structures are osteopenic. The bony thorax appears intact. Mild spondylotic change is seen throughout the thoracic spine. Advanced arthritic change is noted in the shoulders. No lytic or blastic lesions are identified. ABDOMEN AND PELVIS: Liver: The contrast-enhanced liver is normal in size, contour, and attenuation. There is no intra- or extrahepatic biliary ductal dilatation. The hepatic veins and portal veins are patent. Gallbladder: The gallbladder is mildly distended but otherwise normal in appearance. Spleen: Normal in size and attenuation. Pancreas: Moderately atrophic and grossly unremarkable. Adrenal glands: Unremarkable. Kidneys: The contrast enhanced kidneys demonstrate cortical atrophy and are without hydronephrosis. The kidneys enhance symmetrically. Renal cysts measure up to 2.0 cm. Additional subcentimeter cortical hypodensities also likely represent cysts but are too small for definitive characterization. Abdominal vasculature: There is advanced atherosclerotic calcification and mild ectasia of the abdominal aorta. Stomach and bowel: There is a moderate hiatal hernia. There is rectosigmoid fecal retention and mild to moderate constipation. No bowel obstruction is seen. The appendix is not visualized. Peritoneum: There is no intraperitoneal free air or abdominal ascites. Lymphadenopathy: None. Pelvic viscera: Evaluation of the pelvis is degraded by streak artifact from a left hip arthroplasty. The bladder is distended but otherwise normal in appearance. The uterus is surgically absent. A 2.8 cm simple cystic lesion in the right adnexa on image #339 is likely related to the right ovary and unchanged from 12/31/2018. Skeletal structures: Double structures are osteopenic. No lytic or blastic lesions are seen. The lumbosacral spine, bony pelvis, and proximal femora appear intact. There is moderate lumbosacral spondylosis. Advanced arthritic changes noted in the right hip. A left hip arthroplasty is in place. IMPRESSION: 1. There is no acute posttraumatic intrathoracic abnormality. 2. There is no evidence of solid organ injury in the abdomen or pelvis. 3. Cardiomegaly. 4. Multifocal airspace consolidation is seen throughout both lungs, most confluent in the lower lobes. The appearance is typical for pneumonia/aspiration pneumonitis. Clinical correlation will be required and radiographic follow-up to resolution is recommended. 5. Trace pleural effusions. 6. No pneumothorax is seen. 7. There is rectosigmoid fecal retention and mild to moderate constipation. No bowel obstruction is seen. 8. Additional findings as above. ACT 112: Negative or not required by law. Electronically signed by: Lucio Damian M.D. 02/14/2021 12:03 PM Dictated: 02/14/21 1151Transcribed: 02/14/21 1151 Hospital Course (1) Pneumonia: Present on admission with weakness and SOB CXR reviewed, concern for bilateral pneumonia, small pleural effusions, diminished breath sounds at this location CT chest showing patchy infiltrate in the right middle lobe and right lower lobe and in left. COVID 19 negative and normal lactic acid Ceftriaxone and azithromycin given x 1 in the ER, continue abx with IV Zosyn Pulmonary toilet with flutter, incentive spirometry, Mucinex, Tylenol, sputum culture if produces expectorant Speech on board Video swallow done and showed No tracheal aspiration identified. Instead intact swallowing mechanism. On IV Zosyn, will transition to PO Augmentin on discharge Saturated well on RA Clinically improves (2) Chronic diastolic HF (heart failure), NYHA class 2: History of such, give 1L more of NSS secondary to pneumonia and vomiting, then stop if can tolerate p.o. intake BP stable Continue Coreg, amlodipine, losartan, aspirin, Continue lasix (3) Hypertension: Continue antihypertensives as above (4) GERD (gastroesophageal reflux disease): Continue Protonix 40 mg daily (5) Pulmonary embolism: History of such in 2013, home regimen Coumadin with 4 mg MWF and 2 mg on all other days. INR 2.7 today Will resume Coumadin today (6) CKD (chronic kidney disease), stage III: Creatinine currently 1.49 Creatinine 1.01 Continue monitor BMP (7) PAF (paroxysmal atrial fibrillation): Rate controlled with carvedilol Continue coumadin with INR 2 today (8) Mild dementia: -Stable, typically knows name, family members, location and sometimes the date. Her daughter and son take turns taking care of her in her home, involves staying overnight, management of medications, assisting with taking to appointments, etc. (9) Fall: Fell 3 days ago, CT chest, cervical spine, abdomen pelvis negative for acute fracture, patient has no specific joint c/o Ecchymosis over all extremities and across R flank region evolving - on coumadin CRIB TENDER. 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 Coumadin resume on 02/16/21 Continue PT/OT fall precaution (10) Anemia: Hgb 11.5, pt daughter reports seeing small amounts coffee ground emesis in vomitus, Already on PPI po daily Hgb stable at 9.8 (11) DVT prophylaxis: On coumadin with INR 2. CODE: Full Disposition Plan to discharge home today Total Time Total Time Spent Total Time Spent (In Minutes): 35 minutes Total Time Includes: Examination of the Patient, Discharge Planning, Medication Reconciliation, Communication With Other Providers and Other Discharge Plan Discharge Items Patient Disposition: Home - Home Health Services Reason For Visit: PNEUMONIA Discharge Diagnosis: Pneumonia: Chronic diastolic HF (heart failure), NYHA class 2: Hypertension: GERD (gastroesophageal reflux disease): Pulmonary embolism: CKD (chronic kidney disease), stage III: PAF (paroxysmal atrial fibrillation): Dementia: Fall: Anemia: Activity: Resume your previous activity Non-emergency contact: Primary Care Provider Call non-emergency contact if: you have any medication questions and your temperature is above 101 Follow-up/Referrals: Junie Shore MD [Primary Care Provider] - (Date & Time 02/23/2021 10:20 AM Provider Junie Jeffers MD Department Family Medicine [facility] ) Diet: Heart Healthy Diet Texture: Easy to Chew Addtl Attending Provider Instructions: Follow up with your primary care provider Dr. Peoples on 02/23/2021 at 10:20 AM Follow up with the coumadin clinic to monitor your PT/INR Continue physical and occupational therapy with home health Fall precaution Check CBC in 1 week to monitor your hemoglobin Complete the course of the antibiotic with Augmentin Pending Studies at Discharge: No Stand-Alone Forms: [facility], Smoking Cessation Medications and DC Order Prescriptions: New amoxicillin-pot clavulanate [Augmentin] 875-125 mg Tablet 1 tab PO BIDM 3 Days Qty: 6 RF: 0 Continued atorvastatin 40 mg Tablet 40 mg PO HS RF: 0 carvedilol 25 mg Tablet 25 mg PO BID RF: 0 sennosides-docusate sodium [Senna Plus] 8.6-50 mg Tablet 1 tab PO HS RF: 0 cyanocobalamin (vitamin B-12) 1,000 mcg Tablet 1,000 mcg PO QAM RF: 0 aspirin 81 mg Tablet,Delayed Release (Dr/Ec) 81 mg PO .MOWEFR@QAM RF: 0 pantoprazole 40 mg Tablet,Delayed Release (Dr/Ec) 40 mg PO DAILYBB RF: 0 nystatin 100,000 unit/gram Cream 1 applic TOPICAL BID PRN (Reason: Skin Irritation) RF: 0 docusate sodium 100 mg Capsule 100 mg PO HS RF: 0 polyethylene glycol 3350 [Miralax] 17 gram/dose Powder 17 g PO DAILY PRN (Reason: Constipation) RF: 0 cholecalciferol (vitamin D3) [Vitamin D3] 50 mcg (2,000 unit) Tablet 50 mcg PO QDL RF: 0 Vitron-C 65 mg iron- 125 mg tablet,delayed release (DR/EC) 1 tab PO QAM RF: 0 hydrocodone-acetaminophen 5-325 mg tablet 1 tab PO BID PRN (Reason: Pain) RF: 0 sertraline 50 mg tablet 50 mg PO QAM RF: 0 gabapentin 100 mg capsule See Rx Instructions .ROUTE .COMPLEX RF: 0 spironolactone 25 mg tablet 12.5 mg PO .MOWEFR@QAM RF: 0 warfarin 4 mg tablet See Rx Instructions .ROUTE .COMPLEX RF: 0 losartan 25 mg Tablet 25 mg PO QAM Qty: 30 RF: 0 amlodipine 10 mg tablet 10 mg PO HS Qty: 30 RF: 0 furosemide 40 mg tablet 40 mg PO .MOWEFR@QAM RF: 0 isosorbide mononitrate 60 mg tablet extended release 24 hr 60 mg PO QAM RF: 0 furosemide 20 mg tablet 20 mg PO .[email or web address]@QAM RF: 0 Discharge Orders: Discharge Order (Routine); Ordered 02/17/21 Ordered By: Marquis Daniel Admission Data Admit Date/Time: 02/14/21 13:23 Attending Provider: Marquis Daniel Admit Provider: Elisabeth Siddiqui Primary Care Provider: Junie Shore Other Providers: Elisabeth Siddiqui Other Interventions: Discharge Summary Assessment (RN) Last Done: 02/17/21 14:18
--- NOTE | 2021-02-28 06:17 | Coding Query ---
A supporting diagnosis is required for the test/procedure performed on this patient in order for us to be reimbursed by the patient's insurance. Please provide a supporting diagnosis for the following test/procedure listed below next to the test name along with your signature. *If there is no additional diagnosis for this patient that would support the following test/procedure please document that below next to the test/procedure. Test(s)/Procedure(s) that require a supporting diagnosis: Barium Swallow DIAGNOSIS:__x___Aspiration pneumonia Provider Signature: Stephanie Rice PA-C Date: _03/06/21 Thank you Gisselle Randhawa Health Information Management Once completed, please kindly fax back to [phone] For questions please call [phone] [facility]
== END 2021-02-17 14:53 | disposition home health service (06) ==
LOC: ED 09:26 → SUATTDRO 13:23 → 2N 13:23 → INTOOBSV 13:23 → 2N 13:45